=== PATIENT | male | born 1970 | race Caucasian/White ===

== ENCOUNTER 2022-11-21 11:59 | Outpatient (CLI) | payer BC, SELFPAY ==
[2022-11-21 13:15] LABS: Albumin* 4.1 g/dL (3.3-5.0); Chloride* 107 mmol/L (96-114); Potassium* 5.1 mmol/L (3.6-5.1); Sodium* 139 mmol/L (135-149)
[2022-11-21 13:17] LABS: Cholesterol* 103 mg/dL (90-199); Triglycerides* 173 mg/dL (40-149)
[2022-11-21 13:18] LABS: Alanine Aminotransferase* 27 U/L (4-50); Alkaline Phosphatase* 113 U/L (40-150); Aspartate Amino Transferase* 25 U/L (12-35); Bilirubin Total* 0.6 mg/dL (0.1-1.5); Blood Urea Nitrogen* 20 mg/dL (7-30); Carbon Dioxide* 26 mmol/L (20-32); Estimated Glomerular Filt Rate 91 ml/min; Glucose* 165 mg/dL (60-115); HDL Cholesterol* 39 mg/dL (>=40); LDL Cholesterol Calculated 29 mg/dL (<100); Total Protein* 6.8 g/dL (6.0-8.3)
[2022-11-21 13:19] LABS: Calcium* 9.3 mg/dL (8.4-10.6)
[2022-11-21 13:45] LABS: Creatinine Urine 126.1 mg/dL
[2022-11-21 13:48] LABS: Microalbumin Creatinine Ratio 0 mg/g (0-30); Microalbumin Urine 1 mg/dL
== END 2022-11-21 12:00 | disposition home or self-care (01) ==
PROVIDERS: PCP Emergency Medicine; Visit Provider Internal Medicine
DX: Z00.00 Encounter for general adult medical examination without abnormal findings (principal); I25.10 Atherosclerotic heart disease of native coronary artery without angina pectoris; E11.9 Type 2 diabetes mellitus without complications; E03.9 Hypothyroidism, unspecified
CPT/HCPCS: 80053; 80061; 82043; 82570; 84443

== ENCOUNTER 2022-12-01 10:40 | Outpatient (CLI) | payer BC, SELFPAY ==
--- NOTE | 2022-12-01 11:00 | CRLHL7_ITS ---
For Patients: As a result of the Cures Act, medical imaging exams and procedure reports are released immediately into your electronic medical record. You may view this report before your referring provider. If you have questions, please contact your health care provider. INDICATION: Calculus of the kidney. TECHNIQUE: Bilateral renal ultrasound. Limited imaging of the urinary bladder. COMPARISON: December 16, 2021. FINDINGS: No hydronephrosis of either kidney. The right kidney measures 11.8 x 6.4 x 6.7 cm and the left kidney measures 11.8 x 5.7 x 5.3 cm. The right renal cortex measures 1.5 cm and the left renal cortex 1.7 cm in thickness. Few punctate echogenic foci identified throughout both kidneys suggesting tiny nonobstructing stones. 1.3 x 1.2 x 1.0 cm cyst lower pole right kidney. 1.6 x 1.7 x 1.3 cm mid outer left renal cyst. 6 mm cyst superior pole left kidney. The urinary bladder is grossly unremarkable but incompletely distended. IMPRESSION: Small renal cysts. Few tiny nonobstructing echogenic foci in the kidneys likely nonobstructing stones. Dictated by Cody Dougherty MD @ 12/01/2022 11:49:59 AM (Electronically Signed)
== END 2022-12-01 10:41 | disposition home or self-care (01) ==
LOC: US 10:41
PROVIDERS: PCP Emergency Medicine; Visit Provider Urology
DX: N20.0 Calculus of kidney (principal); N28.1 Cyst of kidney, acquired
CPT/HCPCS: 76775

== ENCOUNTER 2023-01-15 10:47 | Outpatient (CLI) | payer BC, SELFPAY ==
--- NOTE | 2023-01-15 11:00 | CRLHL7_ITS ---
For Patients: As a result of the Century Cures Act, medical imaging exams and procedure reports are released immediately into your electronic medical record. You may view this report before your referring provider. If you have questions, please contact your health care provider. INDICATION: Right sided neck pain. Constant, 3 months COMPARISON: none TECHNIQUE: A CT volumetric acquisition was performed of the neck during intravenous infusion of 100 cc Isovue 370 nonionic intravenous contrast. Please note that all CT scans at this facility use dose modulation, iterative reconstruction, and/or weight-based dosing when appropriate to reduce radiation dose to as low as reasonably achievable. FINDINGS: Mild paraseptal emphysematous changes in both lung apices. Mild atherosclerotic changes. The thyroid is diminutive. No suspicious thyroid nodule. The vallecula and piriform sinuses are normal. Normal epiglottis. Visualized brain parenchyma normal. Normal orbits. Clear sinuses. Submandibular glands are normal. The right parotid gland is either absent or atrophied. Normal left parotid gland. No enlarged cervical lymph nodes. Chronic calcifications within the palatine tonsils. No tonsillar abscess. Styloid processes appear elongated. IMPRESSION: Absent or atrophied right parotid gland. No acute inflammatory changes within the neck. No adenopathy. 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 Mild emphysema. Please note that all CT scans at this facility use dose modulation, iterative reconstruction, and/or weight-based dosing when appropriate to reduce radiation dose to as low as reasonably achievable. Dictated by Pancho Ngo MD @ 01/15/2023 1:07:58 PM (Electronically Signed)
[2023-01-15 11:29] LABS: Creatinine* 1.1 mg/dL (0.5-1.5)
[2023-01-15 11:30] LABS: Estimated Glomerular Filt Rate 81 ml/min
== END 2023-01-15 10:48 | disposition home or self-care (01) ==
LOC: CT 10:49
PROVIDERS: PCP Emergency Medicine; Visit Provider Physician Assistant Medical
DX: M54.2 Cervicalgia (principal); J43.8 Other emphysema
CPT/HCPCS: 36415; 70491; 82565; Q9967

== ENCOUNTER 2023-01-27 11:07 | Outpatient (CLI) | payer BC, SELFPAY | END 2023-01-27 11:08 | disposition home or self-care (01) | LOC: FRMREF 11:08 | PROVIDERS: PCP Emergency Medicine; Visit Provider Dermatology | DX: L40.9 Psoriasis, unspecified (principal) | CPT/HCPCS: 80053 ==

== ENCOUNTER 2023-03-03 09:49 | Outpatient (CLI) | payer BC, SELFPAY | END 2023-03-03 09:50 | disposition home or self-care (01) | LOC: NFLDREF 03-06 11:24 | PROVIDERS: PCP Emergency Medicine; Referring Provider Emergency Medicine; Visit Provider Dermatology | DX: Z00.00 Encounter for general adult medical examination without abnormal findings (principal); E11.9 Type 2 diabetes mellitus without complications; E03.9 Hypothyroidism, unspecified; E78.5 Hyperlipidemia, unspecified; Z79.631 Long term (current) use of antimetabolite agent | CPT/HCPCS: 80076 ==

== ENCOUNTER 2023-05-13 10:38 | Outpatient (CLI) | payer BC, SELFPAY | END 2023-05-13 10:39 | disposition home or self-care (01) | PROVIDERS: PCP Emergency Medicine; Visit Provider Dermatology | DX: E03.9 Hypothyroidism, unspecified (principal) | CPT/HCPCS: 80076; 84443 ==

== ENCOUNTER 2023-06-04 10:32 | Outpatient (CLI) | payer BC, SELFPAY | END 2023-06-04 10:33 | disposition home or self-care (01) | LOC: NFLDREF 06-05 19:08 | PROVIDERS: PCP Emergency Medicine; Referring Provider Emergency Medicine; Visit Provider Emergency Medicine | DX: E11.9 Type 2 diabetes mellitus without complications (principal); E78.5 Hyperlipidemia, unspecified; I10 Essential (primary) hypertension; R10.13 Epigastric pain; R53.83 Other fatigue | CPT/HCPCS: 80048; 80061; 82043; 82570 ==

== ENCOUNTER 2023-06-11 13:42 | Outpatient (CLI) | payer BC, SELFPAY ==
--- NOTE | 2023-06-11 14:00 | CRLHL7_ITS ---
For Patients: As a result of the Century Cures Act, medical imaging exams and procedure reports are released immediately into your electronic medical record. You may view this report before your referring provider. If you have questions, please contact your health care provider. INDICATION: ABDOMINAL PAIN COMPARISON: 12/01/2022 ultrasound, 01/18/2021 CT TECHNIQUE: Real time mckoy scale imaging and color Doppler analysis was performed of the right upper quadrant. FINDINGS: The liver is diffusely coarsened and echogenic. A simple cyst is noted within the left hepatic lobe measuring 1.4 x 0.6 x 1.1 cm. There is a normal appearance of the hepatic IVC and proximal abdominal aorta. There is no evidence of ascites. The gallbladder is of normal size and there is no evidence of intraluminal stones or sludge. The gallbladder wall measures 1.5 mm in thickness. The common bile duct is of normal size and measures 4.5 mm in diameter at the level of the carlos hepatis. The pancreas appears normal. A simple cyst within the right kidney is noted measuring 1.8 x 1.6 x 1.6 cm. The right kidney measures 11.1 cm in length. A 5 millimeter stone is present within the right kidney. IMPRESSION: Right nephrolithiasis again noted. No hydronephrosis. Incidental simple right renal cortical cyst. Diffuse hepatic steatosis. Incidental 1.4 cm cyst within the left hepatic lobe. Dictated by Pancho Ngo MD @ 06/12/2023 10:18:30 AM (Electronically Signed)
== END 2023-06-11 13:43 | disposition home or self-care (01) ==
LOC: US 13:43
PROVIDERS: PCP Emergency Medicine; Visit Provider Emergency Medicine
DX: R10.9 Unspecified abdominal pain (principal); N20.0 Calculus of kidney; K76.0 Fatty (change of) liver, not elsewhere classified; K76.89 Other specified diseases of liver
CPT/HCPCS: 76705

== ENCOUNTER 2023-07-23 12:47 | Outpatient (CLI) | payer BC, SELFPAY ==
--- NOTE | 2023-07-23 13:00 | CRLHL7_ITS ---
For Patients: As a result of the Century Cures Act, medical imaging exams and procedure reports are released immediately into your electronic medical record. You may view this report before your referring provider. If you have questions, please contact your health care provider. Indication: ABD PAIN, LLQ AND RUQ PAIN Technique: Postcontrast CT abdomen and pelvis. 116 cc Isovue 370 intravenous contrast. Please note that all CT scans at this facility use dose modulation, iterative reconstruction, and/or weight-based dosing when appropriate to reduce radiation dose to as low as reasonably achievable. Comparison: 01/18/2021 CT, 06/11/2023 ultrasound Findings: Punctate 1 millimeter stone is present within the midportion of the right kidney. 2 millimeter nonobstructing calcification within the upper pole of the left kidney. Small simple renal cortical cysts noted bilaterally. No perinephric stranding or hydronephrosis. No solid renal mass. Adrenal glands are normal. Calcified splenic granulomas are noted. Normal pancreas. The gallbladder is incompletely distended. Diffuse hepatic steatosis. No intrahepatic mass. The bladder is normal. No bladder stones. No bowel obstruction or free air. No free fluid. Normal appendix. No adenopathy. Vascular calcifications. Calcified right hilar lymph nodes are noted. No basilar infiltrate or pleural effusion. Impression: Diffuse hepatic steatosis, as before. No ascites. Punctate calcification within each kidney. No hydronephrosis. Incidental simple renal cysts. Sequela of granulomatous disease. No bowel obstruction or inflammatory change. Normal appendix. No diverticulitis. Please note that all CT scans at this facility use dose modulation, iterative reconstruction, and/or weight-based dosing when appropriate to reduce radiation dose to as low as reasonably achievable. Dictated by Pancho Ngo MD @ 07/24/2023 12:23:32 PM (Electronically Signed)
[2023-07-23 13:25] LABS: Creatinine* 1.1 mg/dL (0.5-1.5); Estimated Glomerular Filt Rate 81 ml/min
== END 2023-07-23 12:48 | disposition home or self-care (01) ==
LOC: CT 12:48
PROVIDERS: PCP Emergency Medicine; Visit Provider Emergency Medicine
DX: R10.9 Unspecified abdominal pain (principal); K76.0 Fatty (change of) liver, not elsewhere classified
CPT/HCPCS: 36415; 74177; 82565; Q9967

== ENCOUNTER 2023-08-05 13:53 | Outpatient (CLI) | payer BC, SELFPAY | END 2023-08-05 13:54 | disposition home or self-care (01) | LOC: NFLDREF 08-07 10:07 | PROVIDERS: PCP Emergency Medicine; Referring Provider Emergency Medicine; Visit Provider Dermatology | DX: Z79.631 Long term (current) use of antimetabolite agent (principal) | CPT/HCPCS: 80053 ==

== ENCOUNTER 2023-10-22 13:00 | Outpatient (CLI) | payer BC, SELFPAY | END 2023-10-22 13:01 | disposition home or self-care (01) | LOC: NFLDREF 10-23 11:58 | PROVIDERS: PCP Emergency Medicine; Referring Provider Emergency Medicine; Visit Provider Dermatology | DX: Z79.631 Long term (current) use of antimetabolite agent (principal) | CPT/HCPCS: 80053 ==

== ENCOUNTER 2023-11-16 13:37 | Outpatient (CLI) | payer BC, SELFPAY ==
--- OUTSIDE RECORDS SUMMARY | 2023-11-16 13:42 | XMS_ITS | Encounter Summary ---
Author Name Unknown Organization [facility] Address [address] [place] [address] [place] [address] Care Team Providers Care Mixing And Dispensing Supervisor Name Role Phone Phillip Sánchez DO Unavailable [phone] Porfirio Zaman MD Primary Care Provider Encounter Details Date Type Department Care Team Description 01/23/2018 Abstract [facility] [address] [place] [address] , Generic MD Abel Social History Tobacco Use Types Packs/Day Years Used Date Smoking Tobacco: Never Assessed Sex and Gender Information Value Date Recorded Sex Assigned at Not on file Gender Identity Not on file Sexual Orientation Not on file documented as of this encounter Plan of Treatment Not on file documented as of this encounter Visit Diagnoses Not on filedocumented in this encounter Care Teams Mixing And Dispensing Supervisor Relationship Specialty Start Date End Date Phillip Sánchez DO [address] [place] [address] PCP - HEART & VASCULAR CARE CARDIOVASCULAR DISEASE 06/07/18 Porfirio Zaman MD [address] [place] [address] PCP - General FAMILY PRACTICE 06/07/18 documented as of this encounter
--- OUTSIDE RECORDS SUMMARY | 2023-11-16 13:42 | XMS_ITS | Encounter Summary ---
Author Name Unknown Organization [facility] Address [address] [place] [address] [place] [address] Care Team Providers Care Offset Assistant Press Operator Name Role Phone Phillip Sánchez DO Unavailable [phone] Porfirio Zaman MD Primary Care Provider [phone] Encounter Details Date Type Department Care Team Description 01/30/2023 Scan [facility] INFO SRVCS Scanned, Doc Med Group Social History Tobacco Use Types Packs/Day Years Used Date Smoking Tobacco: Former Cigarettes 1 Q uit: 2017 Smokeless Tobacco: Never Alcohol Use Standard Drinks/Week Comments No 0 (1 standard drink = 0.6 oz pur e alcohol) Sex and Gender Information Value Date Recorded Sex Assigned at Not on file Gender Identity Not on file Sexual Orientation Not on file documented as of this encounter Plan of Treatment Not on file documented as of this encounter Visit Diagnoses Not on filedocumented in this encounter Care Teams Offset Assistant Press Operator Relationship Specialty Start Date End Date Phillip Sánchez DO [address] [place] [address] PCP - HEART & VASCULAR CARE CARDIOVASCULAR DISEASE 06/07/18 Porfirio Zaman MD [address] [facility] [place] [address] PCP - General FAMILY PRACTICE 06/07/18 documented as of this encounter
--- OUTSIDE RECORDS SUMMARY | 2023-11-16 13:42 | XMS_ITS | Clinical Summary ---
Author Name Unknown Organization [facility] Address [place], [place] [address] Care Team Providers Care Heavy Mobile Equipment Repairer Name Role Phone Estephania Vela Primary Care Provider Lizzeth martini Allergies No known active allergies Medications Medication Sig Dispensed Refills Start Date End Date Status clopidogrel (PLAVIX) 75 mg tabletIndications:Inf erior myocardial infarction (HC) Take 1 tablet by mouth once daily. 90 tablet 3 09/20/2019 Active rosuvastatin (CRESTOR) 20 mg tabletIndications:Inf erior myocardial infarction (HC) Take 1 tablet by mouth at bedtime. 90 tablet 3 09/20/2019 Active glimepiride (AMARYL) 2 mg tablet Take 2 mg by mouth once daily. 0 Active empagliflozin (Jardiance) 10 mg tablet Take 10 mg by mouth once daily. 0 Active lisinopriL (PRINIVIL; ZESTRIL) 2.5 mg tablet Take 2.5 mg by mouth once daily. 0 Active metoprolol succinate 25 mg CSpX Take 25 mg by mouth once daily. 0 Active Encounters Date Type Department Care Team Description 10/30/2023 2:00 PM PARAPROFESSIONAL AIDE TEACHER Office Visit [facility] [address] [place] [address] Samuel Restrepo MD 10/30/2023 Telephone [facility] Payton Landa [address] [place] [address] [place] [address] Samuel Restrepo MD from Last 3 Months Social History Tobacco Use Types Packs/Day Years Used Date Smoking Tobacco: Never Assessed Social Connections Answer Date Recorded Frequency of Communication with Friends and Fami ly Not on file 10/30/2021 Financial Resource Strain Answer Date R ecorded Difficulty of Paying Living Expenses Not on file 10/30/2021 Difficulty of Paying Living Expenses Not on file 10/30/2021 Sex and Gender Information Value Date Recorded Sex Assigned at Not on file Gender Identity Not on file Sexual Orientation Not on file Plan of Treatment Health Maintenance Due Date Last Done Comments Tdap 1982 Depression screening for age 12+ 1983 HIV for age 15-65 1986 BMI (ht and wt on same day) for age 18+ 1989 Hepatitis C screening for ag e 18-79 1989 Tetanus booster 1991 Colonoscopy through age 75 2016 Lipids for age 45-75 2016 Zoster (shingles) series for age 50+ (1 of 2) 2021 COVID-19 vaccine series (2022- season) 2023 03/22/2021, 03/01/2021 Influenza for age 50-64 07/10/2023 Pneumococcal series for age 6-64 Aged Out No longer eligible b ased on patient's age to complete this topic Care Teams Heavy Mobile Equipment Repairer Relationship Specialty Start Date End Date Estephania Vela PCP - General 08/23/19
--- OUTSIDE RECORDS SUMMARY | 2023-11-16 13:42 | XMS_ITS | Encounter Summary ---
Author Name Unknown Organization [facility] Address [address] [place] [address] Care Team Providers Care Occupational Therapy Technician Name Role Phone [facility]- Primary Care Provider Encounter Details Date Type Department Care Team (Late st Contact Info) Description 12/05/2021 Documentation Only INTERFACED REPORT Unknown, Provider Social History Tobacco Use Types Packs/Day Years Used Date Smoking Tobacco: Former Cigarettes Q uit: 2015 Smokeless Tobacco: Never Alcohol Use Standard Drinks/Week Comments Not Currently 0 (1 standard drink = 0.6 oz pur e alcohol) Sex and Gender Information Value Date Recorded Sex Assigned at Not on file Gender Identity Not on file Sexual Orientation Not on file COVID-19 Exposure Response Date Recorded In the last month, have you been in contact with someone who was confirmed or suspected to have Coronavirus / COVID-19? No / Unsure 12/04/2021 8:25 PM SUPERVISORY TRAINING SPECIALIST documented as of this encounter Plan of Treatment Not on file documented as of this encounter Visit Diagnoses Not on filedocumented in this encounter Care Teams Occupational Therapy Technician Relationship Specialty Start Date End Date [facility]- [address] [place] [address] PCP - General 02/26/21 documented as of this encounter
--- OUTSIDE RECORDS SUMMARY | 2023-11-16 13:42 | XMS_ITS | Referral Summary ---
Author Name Unknown Organization [facility] Address [address] [place] [address] Care Team Providers Care Joiner Name Role Phone [facility]- Primary Care Provider Allergies No known active allergies Medications Medication Sig Dispensed Refills Start Date End Date Status terbinafine (LAMISIL) 250 MG tablet Take 250 mg by mouth daily 0 Active tamsulosin (FLOMAX) 0.4 MG capsule Take 0.4 mg by mouth daily 0 Active levothyroxine (SYNTHROID/LEVOTHRO ID) 25 MCG tablet Take 12.5 mcg by mouth daily 0 Active buPROPion (WELLBUTRIN XL) 150 MG 24 hr tablet Take 150 mg by mouth every morning 0 Active SITagliptin-metFORM IN HCl (JANUMET XR PO) Take 1 tablet by mouth 2 times daily 0 Active metoprolol succinate ER (TOPROL-XL) 25 MG 24 hr tablet Take 25 mg by mouth daily 0 Active rosuvastatin (CRESTOR) 20 MG tablet Take 20 mg by mouth daily 0 Active lisinopril (ZESTRIL) 2.5 MG tablet Take 2.5 mg by mouth daily 0 Active glimepiride (AMARYL) 2 MG tablet Take 2 mg by mouth 2 times daily (before meals) 0 Active nystatin (MYCOSTATIN) 101633 UNIT/GM external cream Apply topically 2 times daily 0 Active multivitamin w/minerals (MULTI-VITAMIN) tablet Take 1 tablet by mouth daily 0 Active ketoconazole (NIZORAL) 2 % external cream Apply topically 2 times daily 0 Active triamcinolone (KENALOG) 0.1 % external ointment Apply topically 2 times daily 0 Active aspirin (ASA) 81 MG chewable tablet Take 81 mg by mouth daily 0 Active HYDROcodone-acetami nophen (NORCO) 5-325 MG tabletIndications:B ilateral kidney stones Take 1-2 tablets by mouth every 6 hours as needed for moderate to severe pain 15 tablet 0 03/05/2021 Active phenazopyridine (PYRIDIUM) 200 MG tabletIndications:B ilateral kidney stones Take 1 tablet (200 mg) by mouth 3 times daily as needed for irritation 9 tablet 0 03/05/2021 Active Social History Tobacco Use Types Packs/Day Years Used Date Smoking Tobacco: Former Cigarettes Q uit: 2015 Smokeless Tobacco: Never Alcohol Use Standard Drinks/Week Comments Not Currently 0 (1 standard drink = 0.6 oz pur e alcohol) Adolescent Education Answer Date Record ed Getting School Help Needed Not on file 08/01 Sex and Gender Information Value Date Recorded Sex Assigned at Not on file Gender Identity Not on file Sexual Orientation Not on file Last Filed Vital Signs Vital Sign Reading Time Taken Comments Blood Pressure 113/68 12/04/2021 11:29 PM OUTREACH LIBRARIAN Pulse 64 12/04/2021 11:29 PM OUTREACH LIBRARIAN Temperature 36.9 ??C (98.4 ??F) 12/04/2021 8:29 PM CS T Respiratory Rate 18 12/04/2021 8:29 PM OUTREACH LIBRARIAN Oxygen Saturation 100% 12/04/2021 11:34 PM OUTREACH LIBRARIAN Inhaled Oxygen Concentration - - Weight 113.9 kg (251 lb) 03/05/2021 5:47 AM CDT Height 185.4 cm (6' 1) 03/05/2021 5:47 AM CDT Body Mass Index 33.12 03/05/2021 5:47 AM CDT Plan of Treatment Not on file Medical Devices Implanted Type Area Supervisor Type Bar And Segment Device Identifier Shelf Expiration Date Model / Serial / Lot Stent Ureteral Polaris Ultra [id number] Implanted:Qty: 1 on 03/05/2021 by Lino Cheney MD at [facility] Stent Left: Ureter [employer] 12/02/2023 [id number] / / [id number] Care Teams Joiner Relationship Specialty Start Date End Date [facility]- [address] [place], [place] [id number] PCP - General 02/26/21
--- OUTSIDE RECORDS SUMMARY | 2023-11-16 13:42 | XMS_ITS | Encounter Summary ---
Author Name Unknown Organization [facility] Address [address] [place] [address] [place] [address] Care Team Providers Care Textile Artist Name Role Phone Phillip Sánchez DO Unavailable [phone] Porfirio Zaman MD Primary Care Provider Encounter Details Date Type Department Care Team Description 02/17/2023 Scan [facility] INFO SRVCS Scanned, Doc Med Group Social [...] on filedocumented in this encounter Care Teams Textile Artist Relationship Specialty Start Date End Date Phillip Sánchez DO [address] [place] [address] PCP - HEART & VASCULAR CARE CARDIOVASCULAR DISEASE 06/07/18 Porfirio Zaman MD [address] [facility] [place] [address] PCP - General FAMILY PRACTICE 06/07/18 documented as of this encounter
--- OUTSIDE RECORDS SUMMARY | 2023-11-16 13:42 | XMS_ITS | Clinical Summary ---
Author Name Unknown Organization [facility] Address [address] [place] [address] Care Team Providers Care Logging Operations Inspector Name Role Phone [facility]- Primary Care Provider Allergies No known active [...] daily (before meals) 0 Active nystatin (MYCOSTATIN) 647300 UNIT/GM external cream Apply topically 2 times [...] Comments Blood Pressure 113/68 12/04/2021 11:29 PM LASER PRINT OPERATOR Pulse 64 12/04/2021 11:29 PM LASER PRINT OPERATOR Temperature 36.9 ??C (98.4 ??F) 12/04/2021 8:29 PM CS T Respiratory Rate 18 12/04/2021 8:29 PM LASER PRINT OPERATOR Oxygen Saturation 100% 12/04/2021 11:34 PM LASER PRINT OPERATOR Inhaled Oxygen Concentration - - Weight 113.9 kg (251 lb) 03/05/2021 5:47 AM CDT Height 185.4 cm (6' 1) 03/05/2021 5:47 AM CDT Body Mass Index 33.12 03/05/2021 5:47 AM CDT Plan of Treatment Health Maintenance Due Date Last Done Comments ADVANCE CARE PLANNING 1971 ANNUAL REVIEW OF HM ORDERS 1971 CT COLONOGRAPHY 1971 FIT 1971 FLEX SIG 1971 HEPATITIS B IMMUNIZATION (1 of 3 - 3-dose series) 1971 TSH W/FREE T4 REFLEX 1971 YEARLY PREVENTIVE VISIT 1971 sDNA (Cologuard) 1971 COLONOSCOPY 1981 COLORECTAL CANCER SCREENING 1981 HIV SCREENING 1986 HEPATITIS C SCREENING 1989 LIPID 2006 LUNG CANCER SCREENING 2021 ZOSTER IMMUNIZATION (1 of 2) 2021 COVID-19 Vaccine (3 - 2022-2 4 season) 2023 03/22/2021, 03/01/2021 INFLUENZA VACCINE (#1) 2023 PHQ-2 (once per calendar year) 2023 DTAP/TDAP/TD IMMUNIZATION (3 - Td or Tdap) 11/19/2028 11/19/2018, 11/09/2016 HPV IMMUNIZATION Aged Out No longer e ligible based on patient's age to complete this topic IPV IMMUNIZATION Aged Out No longer e ligible based on patient's age to complete this topic MENINGITIS IMMUNIZATION Aged Out No l onger eligible based on patient's age to complete this topic Pneumococcal Vaccine: Pediatrics (0 to 5 Years) and At-Risk Patients (6 to 64 Years) Aged Out No longer eligible b ased on patient's age to complete this topic RSV MONOCLONAL ANTIBODY Aged Out No l onger eligible based on patient's age to complete this topic Medical Devices Implanted Type Area Mirror Framer Device Identifier Shelf Expiration Date Model / Serial / Lot Stent Ureteral Polaris Ultra [id number] Implanted:Qty: 1 on 03/05/2021 by Lino Cheney MD at [facility] Stent Left: Ureter [employer] 12/02/2023 [id number] / / [id number] Care Teams Logging Operations Inspector Relationship Specialty Start Date End Date [facility]- [address] [place] [address] PCP - General 02/26/21
--- OUTSIDE RECORDS SUMMARY | 2023-11-16 13:42 | XMS_ITS | Clinical Summary ---
Author Name Unknown Organization [facility] Address [address] [place] [address] [place] [address] Care Team Providers Care Clinical Operations Consultant Name Role Phone Phillip Sánchez Ethan DO Unavailable [phone] Porfirio Zaman MD Primary Care Provider Allergies No known active allergies Medications Medication Sig Dispensed Refills Start Date End Date Status metoprolol succinate 50 MG 24 hr tablet Take 1/2 tablet by mouth daily 0 02/08/2017 Active lisinopril 5 MG tablet Take 1/2 tablet by mouth daily. 0 02/08/2017 Active nitroglycerin 0.[address] 1 tablet under the tongue every 5 (five) minutes as needed for Chest Pain. Do not take more than 3 tablets in 15 minutes 0 02/09/2017 Active ticagrelor (BRILINTA) 90 MG tablet Take 1 tablet by mouth 2 (two) times daily. 0 02/08/2017 Active metFORMIN 500 MG tablet Take 500 mg by mouth 2 (two) times daily with meals. 0 Active amoxicillin-clavulan ate 875-125 MG tabletIndications:Ac franck maxillary sinusitis, recurrence not specified Take 1 tablet (875 mg total) by mouth 2 (two) times daily. 20 tablet 0 02/02/2019 Active CPAP SUPPLIESIndications: Sleep apnea Please give patient one set of supplies for cpap 1 Device 0 02/17/2019 Active FREESTYLE LITE test stripIndications:Typ e 2 diabetes mellitus without complication, without long-term current use of insulin ([facility]) ([facility]) TEST TWICE DAILY. 60 each 5 03/28/2019 Active simvastatin 40 MG tabletIndications:Dy slipidemia Take 1 tablet (40 mg total) by mouth nightly at bedtime. 90 tablet 1 04/01/2019 Active glimepiride 2 MG tabletIndications:Di abetes ([facility]) ([facility]) TAKE 2 TABLETS BY MOUTH DAILY 180 tablet 5 05/11/2019 Active METFORMIN 500 MG tabletIndications:Di abetes ([facility]) ([facility]) TAKE 1 TABLET BY MOUTH TWICE DAILY 180 tablet 0 06/23/2019 Active levothyroxine 50 MCG tabletIndications:Th yroid condition TAKE 1 TABLET(50 MCG) BY MOUTH DAILY 90 tablet 1 09/19/2019 Active Active Problems Problem Noted Date Diagnosed Date Recurrent kidney stones 01/29/2019 Coronary artery disease of n ative artery of [place] heart with stable angina pectoris 11/19/2018 Essential hypertension 11/19/2018 Dyslipidemia 11/19/2018 Type 2 diabetes mellitus wit hout complication, without long-term current use of insulin ([facility]) 11/19/2018 Hypothyroidism 03/16/2015 Sleep apnea 04/19/2014 Resolved Problems Problem Noted Date Diagnosed Date Resolved Date Need for diphtheria-tetanus- pertussis (Tdap) vaccine 11/19/2018 01/23/2019 Acute [place] 02/27/2017 01/23/2019 Immunizations Name Administration Dates Next Due Tdap (Historical Only-select from magnify glass) 11/19/2018 Family History Medical History Relation Comments Valve Disease Brother hypothyroidism Daughter Heart Attack Father Kidney Stones Father Breast Cancer Mother hypothyroidism Sister Diabetes Neg Hx Relation Status Comments Brother Daughter Father (Age 61) Mother (Age late 70s) Sister Social History Tobacco Use Types Packs/Day Years [...] Sign Reading Time Taken Comments Blood Pressure 106/69 04/01/2019 10:47 AM CDT Pulse 91 04/01/2019 10:47 AM CDT Temperature 36.1 ??C (96.9 ??F) 04/01/2019 1 0:47 AM CDT Respiratory Rate 22 01/26/2019 12:4 5 PM CDT Oxygen Saturation 97% 04/01/2019 10: 47 AM CDT Inhaled Oxygen Concentration - - Weight 108.2 kg (238 lb 9.6 oz) 019 10:47 AM CDT Height 188 cm (6' 2) 04/01/2019 10:47 AM CDT Body Mass Index 30.63 04/01/2019 10:47 AM CDT Plan of Treatment Health Maintenance Due Date Last Done Comments ASCVD Statin 1971 Colorectal Cancer Screening Colonoscopy (10 Years) 1971 Kidney Health Evaluation 1971 COVID-19 Vaccine (#1) 01/15/1972 Annual Physical 1974 Pneumococcal Vaccine: Pediatrics (0 to 5 Years) and At-Risk Patients (6 to 64 Years) (1 of 2 - PCV) 1977 Diabetes: Retinopathy Eye Exam 1989 Hepatitis C 1989 Hemoglobin A1C 10/02/2019 04/01/2019, 01/07, 11/19/2018, Additional history exists ASCVD LDL 04/01/2020 04/01/2019, 11/09, 03/12/2018, Additional history exists Lipid Panel 04/01/2020 04/01/2019, 11/09, 03/12/2018, Additional history exists Zoster Vaccines (1 of 2) 2021 Influenza Adult (#1) 2023 DTaP, Tdap and Td Vaccines (2 - Td or Tdap) 11/19/2028 11/19/2018 Meningococcal Vaccine Aged Out No patrica chase eligible based on patient's age to complete this topic RSV Immunizations Under 20 Months Aged Out No longer eligible based on patient's age to complete this topic Care Teams Clinical Operations Consultant Relationship Specialty Start Date End Date Phillip Sánchez DO [address] [place] [phone] PCP - HEART & VASCULAR CARE CARDIOVASCULAR DISEASE 06/07/18 Porfirio Zaman MD [address] [place] [address] PCP - General FAMILY PRACTICE 06/07/18
== END 2023-11-16 13:38 | disposition home or self-care (01) ==
PROVIDERS: PCP Emergency Medicine; Visit Provider Physician Assistant Medical
DX: E11.9 Type 2 diabetes mellitus without complications (principal); Z12.5 Encounter for screening for malignant neoplasm of prostate; R53.83 Other fatigue; Z79.84 Long term (current) use of oral hypoglycemic drugs; Z79.85 Long-term (current) use of injectable non-insulin antidiabetic drugs
CPT/HCPCS: 82607; 82728; 84403; 86140; G0103

== ENCOUNTER 2023-11-18 09:05 | Outpatient (CLI) | payer BC, SELFPAY ==
--- NOTE | 2023-11-18 09:15 | CRLHL7_ITS ---
For Patients: As a result of the Century Cures Act, medical imaging exams and procedure reports are released immediately into your electronic medical record. You may view this report before your referring provider. If you have questions, please contact your health care provider. INDICATION: Renal stone TECHNIQUE: Conventional two-dimensional grayscale ultrasound of the kidneys COMPARISON: Abdomen/pelvis CT of 07/23/2023 and renal ultrasound of 12/01/2022 FINDINGS: The renal parenchyma is normal. A 1.6 cm parapelvic cyst is again demonstrated in the inferior right kidney. A small stone is suggested in the lateral mid left renal collecting system. No hydronephrosis is evident. IMPRESSION: 1.6 cm inferior right renal parapelvic cyst and small stone suggested in the lateral mid left renal collecting system. Dictated by Yayo Cody MD @ 11/19/2023 2:53:24 PM (Electronically Signed)
--- OUTSIDE RECORDS SUMMARY | 2023-11-18 09:34 | XMS_ITS | Encounter Summary ---
Author Name Unknown Organization [facility] Address [address] [place] [address] [place] [address] Care Team Providers Care Window Air Conditioner Installer Name Role Phone Phillip Sánchez DO Unavailable [phone] Porfirio Zaman MD Primary Care Provider [phone] Encounter Details Date Type Department Care Team Description 01/30/2023 Scan [employer] INFO SRVCS Scanned, Doc Med Group Social [...] on filedocumented in this encounter Care Teams Window Air Conditioner Installer Relationship Specialty Start Date End Date Phillip Sánchez DO [address] [place] [address] PCP - HEART & VASCULAR CARE CARDIOVASCULAR DISEASE 06/07/18 Porfirio Zaman MD [address] [facility] [address] PCP - General FAMILY PRACTICE 06/07/18 documented as of this encounter
--- OUTSIDE RECORDS SUMMARY | 2023-11-18 09:34 | XMS_ITS | Clinical Summary ---
Author Name Unknown Organization [facility] Address [place], [place] [address] Care Team Providers Care Manager Contracting Name Role Phone Estephania Vela Primary Care Provider Lizzeth martini Allergies No known active allergies Medications Medication Sig Dispensed Refills Start Date End Date Status clopidogrel (PLAVIX) 75 mg tabletIndications: Inferior myocardial infarction (HC) Take 1 tablet by mouth once daily. 90 tablet 3 09/20/2019 Active rosuvastatin (CRESTOR) 20 mg tabletIndications: Inferior myocardial infarction (HC) Take 1 tablet by mouth at bedtime. 90 tablet 3 09/20/2019 Active glimepiride (AMARYL) 2 mg tablet Take 2 mg by mouth two times daily. 0 Active empagliflozin (Jardiance) 10 mg tablet Take 10 mg by mouth once daily. 0 Active lisinopriL (PRINIVIL; ZESTRIL) 2.5 mg tablet Take 2.5 mg by mouth once daily. 0 Active metoprolol succinate 25 mg CSpX Take 25 mg by mouth once daily. 0 Active methotrexate (RHEUMATREX) 2.5 mg tablet Take 2.5 mg by mouth once weekly. 6 tablets once weekly 0 Active POTASSIUM CITRATE ORAL Take by mouth. 0 Active metFORMIN (GLUCOPHAGE) 500 mg tablet Take 500 mg by mouth two times daily. 0 Active tirzepatide (Mounjaro) 2.5 mg/0.5 mL penIndications:Georgina betes mellitus without complication (HC) Inject 0.5 mL (2.5 mg) subcutaneous once weekly. 2 mL 0 11/17/2023 Active SITagliptin-metFOR MIN (Janumet) 50-1,000 mg tablet Take 1 Tablet by mouth two times daily. 0 01/09/202 4 Discontinue d(*Medicati on adjustment) Encounters Date Type Department Care Team Description 10/30/2023 2:00 PM ACCESS CLINICIAN [facility] [address] [place] [address] Samuel Restrepo MD 10/30/2023 Telephone [facility] [address] [place] [address] Dr Ras[facility] [address] Samuel Restrepo MD from Last 3 Months [...] Health Maintenance Due Date Last Done Comments Pneumococcal series for age 6-64 (1 of 2 - PCV) 1977 Tdap 1982 Depression screening for age 12+ 1983 HIV for age 15-65 1986 BMI (ht and wt on same day) for age 18+ 1989 Hepatitis C screening for age 18-79 1989 Zoster (shingles) series for age 50+ (1 of 2) 1990 Tetanus booster 1991 Colonoscopy through age 75 2016 Lipids for age 45-75 2016 COVID-19 vaccine series (3 - Pfizer risk series) 04/19/2021 03/22/2021, 03/01/2021 Influenza for age 50-64 07/10/2023 Care Teams Manager Contracting Relationship Specialty Start Date End Date Estephania Vela PCP - General 08/23/19
--- OUTSIDE RECORDS SUMMARY | 2023-11-18 09:34 | XMS_ITS | Referral Summary ---
Author Name Unknown Organization [facility] Address [address] [place] [address] Care Team Providers Care Production Consultant Name Role Phone [facility]- Primary Care Provider Allergies No known [...] daily (before meals) 0 Active nystatin (MYCOSTATIN) 267196 UNIT/GM external cream Apply topically 2 times [...] Comments Blood Pressure 113/68 12/04/2021 11:29 PM VALUE ANALYST Pulse 64 12/04/2021 11:29 PM VALUE ANALYST Temperature 36.9 ??C (98.4 ??F) 12/04/2021 8:29 PM CS T Respiratory Rate 18 12/04/2021 8:29 PM VALUE ANALYST Oxygen Saturation 100% 12/04/2021 11:34 PM VALUE ANALYST Inhaled Oxygen Concentration - - Weight 113.9 kg (251 lb) 03/05/2021 5:47 AM CDT Height 185.4 cm (6' 1) 03/05/2021 5:47 AM CDT Body Mass Index 33.12 03/05/2021 5:47 AM CDT Plan of Treatment Not on file Medical Devices Implanted Type Area Air Hole Driller Device Identifier Shelf Expiration Date Model / Serial / Lot Stent Ureteral Polaris Ultra [id number] Implanted:Qty: 1 on 03/05/2021 by Lino Cheney MD at [facility] Stent Left: Ureter [employer] 12/02/2023 [id number] / / [id number] Care Teams Production Consultant Relationship Specialty Start Date End Date [facility]- [address] [place], [place] [id number] PCP - General 02/26/21
--- OUTSIDE RECORDS SUMMARY | 2023-11-18 09:34 | XMS_ITS | Encounter Summary ---
Author Name Unknown Organization [facility] Address [address] [place] [address] [place] [address] Care Team Providers Care Joggle Press Operator Name Role Phone Phillip Sánchez DO Unavailable [phone] Porfirio Zaman MD Primary Care Provider Encounter Details Date Type Department Care Team Description 02/17/2023 Scan [employer] INFO SRVCS Scanned, Doc Med Group Social [...] on filedocumented in this encounter Care Teams Joggle Press Operator Relationship Specialty Start Date End Date Phillip Sánchez DO [address] [place] [address] PCP - HEART & VASCULAR CARE CARDIOVASCULAR DISEASE 06/07/18 Porfirio Zaman MD [address] [facility] [address] PCP - General FAMILY PRACTICE 06/07/18 documented as of this encounter
--- OUTSIDE RECORDS SUMMARY | 2023-11-18 09:34 | XMS_ITS | Clinical Summary ---
Author Name Unknown Organization [facility] Address [address] [place] [address] [place] [address] Care Team Providers Care Ct Mri Technologist Name Role Phone Phillip Sánchez Ethan DO Unavailable [phone] Porfirio Zaman MD Primary Care Provider [...] complication, without long-term current use of insulin ([facility] ([facility]) TEST TWICE DAILY. 60 each 5 03/28/2019 Active simvastatin 40 MG tabletIndications:Dy slipidemia Take 1 tablet (40 mg total) by mouth nightly at bedtime. 90 tablet 1 04/01/2019 Active glimepiride 2 MG tabletIndications:Di abetes ([facility]) ([facility]) TAKE 2 TABLETS BY MOUTH DAILY 180 tablet 5 05/11/2019 Active METFORMIN 500 MG tabletIndications:Di abetes ([facility]) ([facility]) TAKE 1 TABLET BY MOUTH TWICE DAILY 180 tablet 0 06/23/2019 Active levothyroxine 50 MCG tabletIndications:Th yroid condition TAKE 1 TABLET(50 MCG) BY MOUTH DAILY 90 tablet 1 09/19/2019 Active Active Problems Problem Noted Date Diagnosed Date Recurrent kidney stones 01/29/2019 Coronary artery disease of n ative artery of [place] heart with stable angina pectoris 11/19/2018 Essential hypertension 11/19/2018 Dyslipidemia 11/19/2018 Type 2 diabetes mellitus wit hout complication, without long-term current use of insulin ([facility]) 11/19/2018 Hypothyroidism 03/16/2015 Sleep apnea 04/19/2014 Resolved Problems Problem Noted Date Diagnosed Date Resolved Date Need for diphtheria-tetanus- pertussis (Tdap) vaccine 11/19/2018 01/23/2019 Acute [place] 02/27/2017 01/23/2019 Immunizations Name Administration Dates Next [...] age to complete this topic Care Teams Ct Mri Technologist Relationship Specialty Start Date End Date Phillip Sánchez DO [address] [place] [phone] PCP - HEART & VASCULAR CARE CARDIOVASCULAR DISEASE 06/07/18 Porfirio Zaman MD [address] [place] [address] PCP - General FAMILY PRACTICE 06/07/18
--- OUTSIDE RECORDS SUMMARY | 2023-11-18 09:34 | XMS_ITS | Encounter Summary ---
Author Name Unknown Organization [facility] Address [address] [place] [address] [place] [address] Care Team Providers Care Gas Appliance Installer Name Role Phone Phillip Sánchez DO Unavailable [phone] Porfirio Zaman MD Primary Care Provider Encounter Details Date Type Department Care Team Description 01/23/2018 Abstract [facility] CONVERSION [address] [place] [address] , Generic MD Abel Social [...] on filedocumented in this encounter Care Teams Gas Appliance Installer Relationship Specialty Start Date End Date Phillip Sánchez DO [address] [place] [address] PCP - HEART & VASCULAR CARE CARDIOVASCULAR DISEASE 06/07/18 Porfirio Zaman MD [address] [place] [address] PCP - General FAMILY PRACTICE 06/07/18 documented as of this encounter
--- OUTSIDE RECORDS SUMMARY | 2023-11-18 09:34 | XMS_ITS | Encounter Summary ---
Author Name Unknown Organization [facility] Address [address] [place] [address] Care Team Providers Care Him Director Name Role Phone [facility]- Primary Care Provider Encounter Details Date Type [...] COVID-19? No / Unsure 12/04/2021 8:25 PM CHIEF OPERATOR LOCK TENDER documented as of this encounter Plan of Treatment Not on file documented as of this encounter Visit Diagnoses Not on filedocumented in this encounter Care Teams Him Director Relationship Specialty Start Date End Date [facility]- [address] [place] [address] PCP - General 02/26/21 documented as of this encounter
--- OUTSIDE RECORDS SUMMARY | 2023-11-18 09:34 | XMS_ITS | Data Portability ---
Author Name Unknown Address [address] [place] [address] Phone [phone] Organization [facility], [facility] Address [address] [place] [address] Care Team Providers Care Roller Skater Name Role Phone [facility] Primary Care Provider Assessment Encounter Date Assessment Date Assessment LastModified by Organization Details LastModified Time 02/22/2021 02/22/2021 50 year old male with bilateral urolithiasis including bilateral ureteral calculi with associated right hydronephrosis. Not available 02/22/2021 13:41:56 03/14/2021 03/14/2021 50 year old male with bilateral urolithiasis including bilateral ureteral calculi with associated right hydronephrosis. Not available 03/14/2021 11:24:32 06/11/2021 06/11/2021 50 year old male with bilateral urolithiasis including bilateral ureteral calculi with associated right hydronephrosis. Of note a total of 30 minutes was spent: preparing to see the patient by reviewing records, images, and laboratory data; obtaining/revie wing separately obtained history; performing physical examination, counseling and educating patient/family/ caregiver; ordering appropriate medications, labs, imaging or procedures; documenting the clinical encounter; and coordination of care. Not available 06/11/2021 14:56:39 07/02/2022 07/02/2022 51 year old male with bilateral urolithiasis including bilateral ureteral calculi with associated right hydronephrosis. Not available 07/02/2022 16:42:48 12/10/2022 12/10/2022 52 year old male with bilateral urolithiasis including bilateral ureteral calculi with associated right hydronephrosis. [facility] Not available 12/09/2022 10:09:59 Plan of Treatment Reminders Order Date Submit Date Provider Last Modified By Organization Details Last Modified Time Details Appointments ESTABLI SHED 10 2023 02:50P M Parvez Brunner MD Not available Not available Not available Lab BMP, serum or plasma 2021 022 [facility], [address] [place], [address], 07/09/2022 08:31:55 BMP, serum or plasma [address] [facility], [address] [place], [address], 07/23/2021 09:48:09 kidney stone, 24-hour urine panel 2020 021 [employer], [address], [place], [address], 03/21/2021 15:07:16 urinaly sis, dipstic k 2020 021 [facility] Not available 01/23/2021 15:55:44 Referral None recorde d. Procedures None recorde d. Surgeries cystosc opy, with uretero scopy, with lithotr ipsy, with inserti on of uretera l stent (SURG) 2020 021 Not available 03/12/2021 12:09:10 Imaging US, renal 2022 023 [facility], [place] [facility], [address] [place], [address], 10/28/2023 10:04:10 US, renal - Pt needs in late Dec 2021, please call patient to thanks. derick 2021 022 [facility], [address] [place], [address], 07/02/2022 15:15:27 US, renal - Pt needs in late Dec 2021, please call patient to thanks. derick 2020 021 [facility], [address] [place], [address], 07/23/2021 13:36:56 XR, kidney + ureter + bladder 2020 021 [email or web address] Not available 01/25/2021 13:13:03 Medication Orders potassi um citrate ER 10 mEq (1,080 mg) tablet, extende d release 2022 023 [facility] #[id number], [address], [place], [address], 12/10/2022 20:16:01 potassi um citrate ER 10 mEq (1,080 mg) tablet, extende d release [email or web address]/[facility] #024, [address], [place], [address], 07/02/2022 16:41:17 potassi um citrate ER 10 mEq (1,080 mg) tablet, extende d release 2020 021 [facility] #[id number], [address] , [place], [address], 06/11/2021 14:57:31 Patient TargetsNo targets recorded. Patient Instructions Encounter Date Encounter Id Patient Instructions Last Modified By Organization Details Last Modified Time 02/22/2021 [id number] Ureteroscopy wit h Stone Manipulation - PATIENT INFORMED CONSENT Ureteroscopy is a procedure in which a thin telescope is inserted into the ureter (tube that drains the kidney) to remove a stone or obstruction. The goal of this treatment is to remove or break urinary stones into particles small enough to be removed from the urinary tract. This may be accomplished with a laser and/or stone basketing. I understand that there are alternative methods to treat urinary stones, which include: No treatment of the urinary stone(s). Manipulation of a stone in the ureter back into the kidney with placement of a stent (a tube that drains the kidney ? which may be followed by another treatment Shock Wave Lithotripsy (ESWL), or treatment of stones with energy waves Percutaneous Lithotripsy (PNL), a puncture/scope technique through the side directly into the kidney (generally reserved for larger stones) Surgical removal of stone(s) through an incision. I realize that ureteroscopy with stone manipulation MAY or MAY NOT successfully fragment my stones. In many cases, a temporary ureteral stent will be necessary to allow for the passage of stones. I further recognize that some fragments may require alternative treatments to be used following ureteroscopy. I understand that radiographs (x-rays) and other diagnostic studies are necessary following treatment to assess the success of treatment and to diagnose urinary drainage problems, which might result from treatment. I understand that any tubes placed in my urinary tract before, during and after ureteroscopy treatment will need to be removed in a timely fashion. RISKS OF Ureteroscopy with Stone Manipulation The stone may be incompletely fragmented and require alternative treatment. There may be damage to the ureter required prolonged stenting or open repair There may be bleeding sufficient enough to require transfusion. Urinary infection associated with stones may become aggravated and become life threatening. Malfunction of the laser or equipment is a possibility and may require re-scheduling Damage to kidney can occur and may require the removal of the kidney. Damage to the ureter, or tube that drains the kidney may occur and may result in scarring or stricture Anesthesia risks including heart attack, stroke, and even . THESE ARE NOT PROBABLE RESULTS, BUT THEY ARE STATISTICAL POSSIBILITIES. I understand that ureteroscopy should not be performed if I am . A test is required on ALL women where is a possibility. PATIENT ACKNOWLEDGEMENT I have been given an opinion as to the appropriateness of ureteroscopy with stone manipulation for my condition by my personal physician. I have the right to seek a second opinion regarding my care. I understand that it is my responsibility to seek follow-up care from my urologist after treatment. I will be given instructions on necessary post-treatment care. If a ureteral stent has been placed it will need to be removed at a later date (second stage procedure) in the office. I have been allowed to ask questions about the treatment. I have read this form and/or it has been explained to me. I understand that by signing this form, I am consenting to the performance of ureteroscopy with stone manipulation for treatment of stones and any of the above-mentioned alternative procedures necessary for my best health. By signing this document, I agree that any problems, risks, or complications, which may arise either in whole or in part as a result of inaccurate or incomplete information shall be my responsibility. Not available 02/22/2021 13:42:43 Reason for Referral None Reported. Results Created Date Observation Date Name Description Value Unit Range Abnormal Flag LastModifiedBy Organization Detail LastModifiedTime 01/23/2021 urina lysis , dipst ick Color-Status Yellow Not Available [facility] [address], [place], [address], 01/23/2021 15:30:51 01/23/2021 urina lysis , dipst ick Clarity-Stat us Clear Not Available [facility] [address], [place], [address], 01/23/2021 15:30:51 01/23/2021 urina lysis , dipst ick Glucose-Stat us 1000 Not Available [facility] [address], [place], [address], 01/23/2021 15:30:51 01/23/2021 urina lysis , dipst ick pH-Status 5.5 Not Available [facility] [address], [place], [address], 01/23/2021 15:30:51 01/23/2021 urina lysis , dipst ick Blood-Status Trace Not Available [facility] [address], [place], [address], 01/23/2021 15:30:51 01/23/20 21 01/18/2021 CT, abdom en + pelvi s, w/o contr ast No observ ation record ed. Not Available 01/22/2021 15:39:11 01/24/20 21 01/23/2021 CT, abdom en + pelvi s, w/o contr ast No observ ation record ed. [facility] [address], [place], [address], 02/22/2021 13:39:49 01/25/20 21 bladd er scan (PROC ) No observ ation record ed. Not Available 02/22/2021 13:39:49 02/26/20 21 02/22/2021 CT, abdom en + pelvi s, w/o contr ast No observ ation record ed. [email or web address] [facility] [address], [place], [address], 03/14/2021 11:24:01 04/02/20 21 04/01/2021 CT, abdom en + pelvi s, w/o contr ast No observ ation record ed. [email or web address] [facility] [address], [place], [address], 04/03/2021 08:17:34 09/24/20 21 09/23/2021 US, renal No observ ation record ed. [email or web address] Radiology Department [address] [place], [address], 07/02/2022 16:41:14 12/17/19 22 12/16/2021 US, renal No observ ation record ed. [email or web address] Radiology Department [address] [place], [address], 07/02/2022 16:41:14 12/01/19 23 12/01/2022 US, renal No observ ation record ed. [address] Radiology Department [address] [place], [address], 12/10/2022 13:16:57 Result Notes None recorded. Procedures Surgical History Date Name Laterality Status Provider Name and Address Organization Details Recorded Time Cystoscopy with foreign body/stent removal completed Parvez Brunner MD [address], [place], [address], [place] [facility] 03/14/2021 11:25:44 Bladder Scan completed Savita chin [facility] 01/23/2021 16:01:51 placement of stent in pulmonary artery completed Savita chin [facility] 01/23/2021 15:29:56 Imaging Results Imaging Date Name Status LastModified by Organ [facility] Details LastModified Time 01/18/2021 CT, abdomen + pelvis, w/o contrast completed Information not available 01/22/2021 15:39:11 01/23/2021 CT, abdomen + pelvis, w/o contrast completed [email or web address] [address], [place], [address], 02/22/2021 13:39:49 01/24/2021 [facility]PROC[email or web address] Information not available 02/22/2021 13:39:49 02/22/2021 CT, abdomen + pelvis, w/o contrast [email or web address] [address], [place], [address], 03/14/2021 11:24:01 04/01/2021 CT, abdomen + pelvis, w/o contrast completed [facility] [address], [place], [address], 04/03/2021 08:17:34 09/23/2021 US, renal completed [email or web address] [facility] Radiology Department [address] [place], [address], 07/02/2022 16:41:14 12/16/2021 US, renal completed [email or web address] [facility]iology Department [address] [place], [address], 07/02/2022 16:41:14 12/01/2022 US, renal completed [address] Radiology Department [address] [place], [address], 12/10/2022 13:16:57 Procedure Notes None recorded. Medical Equipment None Reported. Allergies No known drug allergies Medications Name Sig Start Date Stop Date Status Note LastModified by Organization Details LastModified Time cyclobenzap rine 10 mg tablet TAKE 1/2 TO 1 TABLET BY MOUTH THREE TIMES DAILY NEEDED active Not Available Not Available No t Available hydrocodone 5 mg-acetamin ophen 325 mg tablet Take 1 tablet every 6 hours by oral route. 12/10 completed Not Available Not Available Not Available clobetasol 0.05 % topical cream TOPICALLY TWICE A DAY APPLY SPARINGLY TO AFFECTED AREA active Not Available Not Available No t Available clopidogrel 75 mg tablet TAKE 1 TABLET BY MOUTH EVERY DAY active Not Available Not Available No t Available tramadol 50 mg tablet TAKE 1-2 TABS BY MOUTH EVERY 6 HRS NEEDED 12/10 completed Not Available Not Available Not Available glimepiride 2 mg tablet TAKE 1 TABLET BY MOUTH TWICE DAILY active Not Available Not Available No t Available levothyroxi ne 25 mcg tablet TAKE 1/2 TABLET BY MOUTH DAILY ALONG WITH 50MCG TABLET active Not Available Not Available No t Available terbinafine HCl 250 mg tablet active Not Available Not Available Not Available tamsulosin 0.4 mg capsule TAKE 1 CAPSULE BY MOUTH EVERY DAY 12/10 completed Not Available Not Available Not Available potassium citrate ER 10 mEq (1,080 mg) tablet,exte nded release TAKE 1 TABLET THREE TIMES A DAY 2022 active Not Available Not Available Not Avai lable levothyroxi ne 50 mcg tablet TAKE 1 TABLET BY MOUTH DAILY active Not Available Not Available No t Available nystatin 100,000 unit/gram topical cream APPLY TOPICALLY 2 3 TIMES DAILY active Not Available Not Available No t Available diclofenac sodium 50 mg tablet,[place] yed release TAKE 1 TABLET BY MOUTH TWICE A DAY NEEDED active Not Available Not Available No t Available metoprolol succinate ER 25 mg tablet,exte nded release 24 hr TAKE 1 TABLET BY MOUTH DAILY active Not Available Not Available No t Available clobetasol 0.05 % scalp solution APPLY TO AFFECTED AREA TOPICALLY TWICE A DAY APPLY SPARINGLY TO AFFECTED AREA active Not Available Not Available No t Available lisinopril 2.5 mg tablet TAKE 1 TABLET BY MOUTH DAILY active Not Available Not Available No t Available calcipotrie ne 0.005 % topical ointment APPLY TO AFFECTED AREA EXTERNALL Y TWICE A DAY active Not Available Not Available No t Available rosuvastati n 20 mg tablet TAKE 1 TABLET BY MOUTH DAILY active Not Available Not Available No t Available bupropion HCl XL 150 mg 24 hr tablet, extended release TAKE 1 TABLET BY MOUTH EVERY DAY active Not Available Not Available No t Available OneTouch UltraSoft Lancets TEST TWICE DAILY active Not Available Not Available No t Available Janumet 50 mg-1,000 mg tablet TAKE 1 TABLET BY MOUTH TWICE DAILY 12/10 completed Not Available Not Available Not Available OneTouch Verio test strips UES TO TEST BLOOD SUGAR TWICE DAILY DIRECTED active Not Available Not Available No t Available Janumet XR 50 mg-1,000 mg tablet,exte nded release TAKE 1 TABLET BY MOUTH TWICE DAILY 12/10 completed Not Available Not Available Not Available Jardiance 10 mg tablet TAKE 1 TABLET BY MOUTH EVERY MORNING active Not Available Not Available No t Available Otezla Starter 10 mg (4)-20 mg (4)-30 mg(47) tablets in a dose pack active Not Available Not Available Not Available OneTouch Delica Plus Lancet 30 gauge USE TO TEST BLOOD SUGAR TWICE DAILY active Not Available Not Available No t Available Paxlovid 300 mg (150 mg x 2)-100 mg tablets in a dose pack 12/10 completed Not Available Not Available Not Available Vitals Date Recorded Body height Body mass index (BMI) Body weight Provider Name and Address Organization Details Last Updated DateTime 07/02/2022 187.96 cm 30.8 kg/m2 865717.17 g Mack chin [facility] 07/02/2022 14:42:19 Date Recorded Body height Body mass index (BMI) Body weight Provider Name and Address Organization Details Last Updated DateTime 12/10/2022 187.96 cm 30.8 kg/m2 018687.17 g Karina chin [facility] 12/10/2022 12:18:12 Date Recorded Body height Body mass index (BMI) Body weight Provider Name and Address Organization Details Last Updated DateTime 01/23/2021 187.96 cm 32.1 kg/m2 341841.09 g Savita Neubert [facility] 01/23/2021 15:26:56 Date Recorded Body height Body mass index (BMI) Body weight Provider Name and Address Organization Details Last Updated DateTime 02/22/2021 187.96 cm 32.1 kg/m2 684457.09 g Alem Murphyard [facility] 02/22/2021 11:27:22 Date Recorded Body height Body mass index (BMI) Body weight Provider Name and Address Organization Details Last Updated DateTime 03/14/2021 187.96 cm 32.1 kg/m2 648670.09 joseph Aguilerab [facility] 03/14/2021 10:25:32 Date Recorded Body height Body mass index (BMI) Body weight Provider Name and Address Organization Details Last Updated DateTime 06/11/2021 187.96 cm 32.1 kg/m2 326019.09 joseph Alem Erick [facility] 06/11/2021 14:10:20 Social History Question Answer Notes LastModified by Organizat ion Details LastModified Time Tobacco Smoking Status Former [facility] 01/23/2021 15:29:20 What Is Your Level Of Alcohol Consumption? Occasional Information not available 06/11/2021 What Is Your Level Of Caffeine Consumption? Occasional Information not available 06/11/2021 Are You Currently Employed? Yes Information not available 07/02/2022 Do You Or Have You Ever Used E-cigarettes Or Vape? Never Used Electronic Cigarettes Information not available 02/22/2021 When Did You Quit Smoking? 6-10yearssince lastcigarette Information not available 06/11/2021 Recreational Drug Use No Information not available 06/11/2021 Could You Be ? No Information not available 06/11/2021 What Was The Date Of Your Most Recent Tobacco Screening? 12/10/2022 [email or web address] Information not available 12/10/2022 What Is Your Relationship Status? Information not available 06/11/2021 Do You Or Have You Ever Used Smokeless Tobacco? Never Used Smokeless Tobacco Information not available 02/22/2021 Do You Use Any Illicit Or Recreational Drugs? No Information not available 06/11/2021 Has Tobacco Cessation Counseling Been Provided? No Information not available 07/02/2022 Do You Or Have You Ever Used Any Other Forms Of Tobacco Or Nicotine? No Information not available 06/11/2021 Sex: Male Functional Status None recorded. Mental Status None recorded. Family History Relationship Description Onset Age of this Age Resolved Age Notes Mother Family history of br east cancer Medical History Condition Response Other High Blood Pressure Y Kidney Stones Y Diabetes Y High Cholesterol Y Heart Disease Y Immunizations Vaccine Type Date Status Provider Name and Address Organization Details Recorded Time COVID-19, mRNA, LNP-S, PF, 30 mcg/0.3 mL dose 03/01/2021 [facility] 12/10/2022 12:18:25 COVID-19, mRNA, LNP-S, PF, 30 mcg/0.3 mL dose 03/22/2021 completed Karina chin [facility] 12/10/2022 12:18:25 pneumococcal polysaccharide PPV23 03/19/2022 [facility] 12/10/2022 12:18:25 Tdap 11/09/2016 [facility] 09/10/2023 15:47:52 Past Encounters Encounter ID Performer Location Encounter Start Date Encounter Closed Date Diagnosis/Indication [id number] RODOLFO Blanca [facility] [address] [place] [address] 01/23/2021 15:22:01 01/25/2021 11:59:59 Kidney stone [id number] MD ISABELA [facility] [address] [place] [address] 02/22/2021 11:05:52 02/25/2021 12:15:52 Kidney stone Hydronephrosis [id number] MD ISABELA [facility] [address] [place] [address] 03/14/2021 10:18:02 03/15/2021 12:19:35 Kidney stone Hydronephrosis [id number] MD [facility]ABELA [facility] [address] [address] 06/11/2021 14:09:34 06/12/2021 16:13:16 Kidney stone [id number] Parvez Brunner MD [facility] [address] [address] 07/02/2022 14:37:32 07/04/2022 11:21:54 Kidney stone [id number] Parvez Brunner MD [facility] [address] [place] [address] 12/10/2022 12:01:08 12/15/2022 11:46:51 Kidney stone Health Concerns Section Related Observation LastModified by Organization Detai ls LastModified Time None Recorded Concern Status LastModified by Organization Details LastModified Time None Recorded Advance Directives Directive None Recorded Payers Encounter Date Sequence Insurance Name Policy Number Policy Painting Covered Member ID Painting Member ID Guarantor Name 12/10/2022 1 [place] L[place] Orozco [id number] Lino Orozco 07/02/2022 1 [place] [id number] Lino Orozco [id number] Lino Orozco 06/11/2021 1 [place] [id number] Lino Orozco [id number] Lino Orozco 03/14/2021 1 [place] [id number] Lino Orozco [id number] Lino Orozco 02/22/2021 1 [place] [id number] Lino Orozco [id number] Lino Orozco 01/23/2021 1 [place] [id number] Lino Orozco [id number] Lino Orozco Notes Date Note Type Note Provider Name and Address Organization Details Recorded Time 01/23/2021 text/html HPI Notes: Lino is 50 y.o. male with h.o of nephrolithasis, HTN, DMII, ANGELA & hypothyroidism, referred for ureteral stones, states pain started around Dec 24. CT abd/pel NC with proximal left ureteral 4 mm stone & distal right ureteral 3 mm stone; also with b/l non-obstructing stones. He still has right flank pain 4/10, worse at night that is relatively unchanged since last month. First kidney stone at age 34. He has passed 8 or 9 conservatively. Prior URS in 2014. He is taking flomax. Denies fevers, chills, N/V. Denies gross hematuria. Medical hx iwth hypothyroidism, ANGELA. H.o. heart attack 4 years ago. Father with kidney stones. Daughter with hx of kidney stones.He recently moved from out of [facility]. He has been seen by urologist in [place]. PVR 27 mL UA >1000 glucose (pt is on Janumet which causes glucosuria), trace blood, trace ketone Emelina Bowers, PAC [address], [place], [address], [facility] 01/25/2021 13:04:39 02/22/2021 text/html HPI Notes: Lino is 50 y.o. male with h.o of nephrolithasis, HTN, DMII, ANGELA & hypothyroidism, referred for ureteral stones, states pain started around Dec 24. CT abd/pel NC with proximal left ureteral 4 mm stone & distal right ureteral 3 mm stone; also with b/l non-obstructing stones. He still has right flank pain 4/10, worse at night that is relatively unchanged since last month. First kidney stone at age 34. He has passed 8 or 9 conservatively. Prior URS in 2014. He is taking flomax. Denies fevers, chills, N/V. Denies gross hematuria. Medical hx with hypothyroidism, ANGELA. H.o. heart attack 4 years ago. Father with kidney stones. Daughter with hx of kidney stones.He recently moved from out of [facility]. He has been seen by urologist in [place]. PVR 27 mL UA >1000 glucose (pt is on Janumet which causes glucosuria), trace blood, trace ketone 02/22/2021 Kannan: Here for follow up right flank pain and nephrolithiasis. Today he reports that he was doing well and had passed a stone last week, but awoke at 4:30 this morning with new pain. Underwent repeat CT (dated 02/22/21) which is reviewed and interpreted by me revealing multiple bilateral non-obstructing stones. Bilateral ureteral calculi, small 2 mm stone within the proximal left ureter and 5 mm stone within the proximal right ureter with associated mild-moderate hydroureteronephrosis . Parvez Brunner MD [address], [place], [address], [facility] 02/22/2021 13:44:23 03/14/2021 text/html HPI Notes: Lino is 50 y.o. male with h.o of nephrolithasis, HTN, DMII, ANGELA & hypothyroidism, referred for ureteral stones, states pain started around Dec 24. CT abd/pel NC with proximal left ureteral 4 mm stone & distal right ureteral 3 mm stone; also with b/l non-obstructing stones. He still has right flank pain 4/10, worse at night that is relatively unchanged since last month. First kidney stone at age 34. He has passed 8 or 9 conservatively. Prior URS in 2014. He is taking flomax. Denies fevers, chills, N/V. Denies gross hematuria. Medical hx with hypothyroidism, ANGELA. H.o. heart attack 4 years ago. Father with kidney stones. Daughter with hx of kidney stones.He recently moved from out of [facility]. He has been seen by urologist in [place]. PVR 27 mL UA >1000 glucose (pt is on Janumet which causes glucosuria), trace blood, trace ketone 02/22/2021 Kannan: Here for follow up right flank pain and nephrolithiasis. Today he reports that he was doing well and had passed a stone last week, but awoke at 4:30 this morning with new pain. Underwent repeat CT (dated 02/22/21) which is reviewed and interpreted by me revealing multiple bilateral non-obstructing stones. Bilateral ureteral calculi, small 2 mm stone within the proximal left ureter and 5 mm stone within the proximal right ureter with associated mild-moderate hydroureteronephrosis . 03/14/21: Here for follow up nephrolithaisis now s/p bilateral ureteroscopy with laser lithotripsy with Dr. Cheney. Here for bilateral stent removal. Overall has been feeling well but ready for stents to be removed. Parvez Brunner MD [address], [place], [address], [facility] 03/14/2021 11:27:57 06/11/2021 text/html HPI Notes: Lino is 50 y.o. male with h.o of nephrolithasis, HTN, DMII, ANGELA & hypothyroidism, referred for ureteral stones, states pain started around Dec 24. CT abd/pel NC with proximal left ureteral 4 mm stone & distal right ureteral 3 mm stone; also with b/l non-obstructing stones. He still has right flank pain 4/10, worse at night that is relatively unchanged since last month. First kidney stone at age 34. He has passed 8 or 9 conservatively. Prior URS in 2014. He is taking flomax. Denies fevers, chills, N/V. Denies gross hematuria. Medical hx with hypothyroidism, ANGELA. H.o. heart attack 4 years ago. Father with kidney stones. Daughter with hx of kidney stones.He recently moved from out of [facility]. He has been seen by urologist in [place]. PVR 27 mL UA >1000 glucose (pt is on Janumet which causes glucosuria), trace blood, trace ketone 02/22/2021 Kannan: Here for follow up right flank pain and nephrolithiasis. Today he reports that he was doing well and had passed a stone last week, but awoke at 4:30 this morning with new pain. Underwent repeat CT (dated 02/22/21) which is reviewed and interpreted by me revealing multiple bilateral non-obstructing stones. Bilateral ureteral calculi, small 2 mm stone within the proximal left ureter and 5 mm stone within the proximal right ureter with associated mild-moderate hydroureteronephrosis . 03/14/21: Here for follow up nephrolithaisis now s/p bilateral ureteroscopy with laser lithotripsy with Dr. Cheney. Here for bilateral stent removal. Overall has been feeling well but ready for stents to be removed. 06/11/2021: Here for follow up nephrolithiasis and review of 24 hour urine results. No recurrent flank pain, hematuria, or other concerns. Has been pushing water. This visit was conducted by telephone due to the COVID-19 crisis. Prior to conducting our telephone visit, the patient was apprised of the risks, benefits and alternatives to telephone visits including but not limited to poor audio quality, interrupted visits due to technological limitations, delays in medical evaluation and treatment due to deficiencies or failures of equipment, failure of security protocols resulting in a breach of privacy of personal medical information and a lack of access to complete medical records resulting in not fully informed decisions. Also, because of the COVID-19 pandemic, it was not possible for the patient to sign the privacy regulations, HIPAA release and assignment of benefits forms. The patient was given the opportunity to ask questions about these policies and gave verbal acknowledgement and approval of these policies as well as to hold this meeting by telephone. Lastly, the patient agreed to allowing their medication history to be pulled from a national pharmacy database to facilitate and coordinate their care. Parvez Brunner MD [address] [place] [address],[address], [place], [address], [facility] 06/11/2021 14:58:09 07/02/2022 text/html HPI Notes: Lino is 51 y.o. male with h.o of nephrolithasis, HTN, DMII, ANGELA & hypothyroidism, referred for ureteral stones, states pain started around Dec 24. CT abd/pel NC with proximal left ureteral 4 mm stone & distal right ureteral 3 mm stone; also with b/l non-obstructing stones. He still has right flank pain 4/10, worse at night that is relatively unchanged since last month. First kidney stone at age 34. He has passed 8 or 9 conservatively. Prior URS in 2014. He is taking flomax. Denies fevers, chills, N/V. Denies gross hematuria. Medical hx with hypothyroidism, ANGELA. H.o. heart attack 4 years ago. Father with kidney stones. Daughter with hx of kidney stones.He recently moved from out of [facility]. He has been seen by urologist in [place]. PVR 27 mL UA >1000 glucose (pt is on Janumet which causes glucosuria), trace blood, trace ketone 02/22/2021 Kannan: Here for follow up right flank pain and nephrolithiasis. Today he reports that he was doing well and had passed a stone last week, but awoke at 4:30 this morning with new pain. Underwent repeat CT (dated 02/22/21) which is reviewed and interpreted by me revealing multiple bilateral non-obstructing stones. Bilateral ureteral calculi, small 2 mm stone within the proximal left ureter and 5 mm stone within the proximal right ureter with associated mild-moderate hydroureteronephrosis . 03/14/21: Here for follow up nephrolithaisis now s/p bilateral ureteroscopy with laser lithotripsy with Dr. Cheney. Here for bilateral stent removal. Overall has been feeling well but ready for stents to be removed. 06/11/2021: Here for follow up nephrolithiasis and review of 24 hour urine results. No recurrent flank pain, hematuria, or other concerns. Has been pushing water. This visit was conducted by telephone due to the COVID-19 crisis. Prior to conducting our telephone visit, the patient was apprised of the risks, benefits and alternatives to telephone visits including but not limited to poor audio quality, interrupted visits due to technological limitations, delays in medical evaluation and treatment due to deficiencies or failures of equipment, failure of security protocols resulting in a breach of privacy of personal medical information and a lack of access to complete medical records resulting in not fully informed decisions. Also, because of the COVID-19 pandemic, it was not possible for the patient to sign the privacy regulations, HIPAA release and assignment of benefits forms. The patient was given the opportunity to ask questions about these policies and gave verbal acknowledgement and approval of these policies as well as to hold this meeting by telephone. Lastly, the patient agreed to allowing their medication history to be pulled from a national pharmacy database to facilitate and coordinate their care. 07/02/2022: Here for follow up nephrolithiasis. No recurrence of flank pain, hematuria, dysuria, or other concerns of recent stone episodes. Parvez Brunner MD [address], [place], [address], [facility] 07/02/2022 16:43:00 12/10/2022 text/html HPI Notes: Lino is 52 y.o. male with h.o of nephrolithasis, HTN, DMII, ANGELA & hypothyroidism, referred for ureteral stones, states pain started around Dec 24. CT abd/pel NC with proximal left ureteral 4 mm stone & distal right ureteral 3 mm stone; also with b/l non-obstructing stones. He still has right flank pain 4/10, worse at night that is relatively unchanged since last month. First kidney stone at age 34. He has passed 8 or 9 conservatively. Prior URS in 2014. He is taking flomax. Denies fevers, chills, N/V. Denies gross hematuria. Medical hx with hypothyroidism, ANGELA. H.o. heart attack 4 years ago. Father with kidney stones. Daughter with hx of kidney stones.He recently moved from out of [facility]. He has been seen by urologist in [place]. PVR 27 mL UA >1000 glucose (pt is on Janumet which causes glucosuria), trace blood, trace ketone 02/22/2021 Kannan: Here for follow up right flank pain and nephrolithiasis. Today he reports that he was doing well and had passed a stone last week, but awoke at 4:30 this morning with new pain. Underwent repeat CT (dated 02/22/21) which is reviewed and interpreted by me revealing multiple bilateral non-obstructing stones. Bilateral ureteral calculi, small 2 mm stone within the proximal left ureter and 5 mm stone within the proximal right ureter with associated mild-moderate hydroureteronephrosis . 03/14/21: Here for follow up nephrolithaisis now s/p bilateral ureteroscopy with laser lithotripsy with Dr. Cheney. Here for bilateral stent removal. Overall has been feeling well but ready for stents to be removed. 06/11/2021: Here for follow up nephrolithiasis and review of 24 hour urine results. No recurrent flank pain, hematuria, or other concerns. Has been pushing water. 07/02/2022: Here for follow up nephrolithiasis. No recurrence of flank pain, hematuria, dysuria, or other concerns of recent stone episodes. 12/10/2022: Here for follow up chronic nephrolithiasis. He underwent a surveillance renal US dated 12/01/22 for my review. Bilateral punctate hyperechogenic areas suggesting small non-obstructing stones. No hydronephrosis bilaterally. Bilateral simple renal cysts. Parevz Brunner MD [address], [place], [address], [facility] 12/10/2022 13:19:09
--- OUTSIDE RECORDS SUMMARY | 2023-11-18 09:34 | XMS_ITS | Clinical Summary ---
Author Name Unknown Organization [facility] Address [address] [place] [address] Care Team Providers Care Environmental Communications Specialist Name Role Phone [facility]- Primary Care Provider Allergies No [...] daily (before meals) 0 Active nystatin (MYCOSTATIN) 340753 UNIT/GM external cream Apply topically 2 times [...] Comments Blood Pressure 113/68 12/04/2021 11:29 PM TOMBSTONE SETTER Pulse 64 12/04/2021 11:29 PM TOMBSTONE SETTER Temperature 36.9 ??C (98.4 ??F) 12/04/2021 8:29 PM CS T Respiratory Rate 18 12/04/2021 8:29 PM TOMBSTONE SETTER Oxygen Saturation 100% 12/04/2021 11:34 PM TOMBSTONE SETTER Inhaled Oxygen Concentration - - Weight 113.9 [...] this topic Medical Devices Implanted Type Area Assistant Women'S Tennis Coach Device Identifier Shelf Expiration Date Model / Serial / Lot Stent Ureteral Polaris Ultra [id number] Implanted:Qty: 1 on 03/05/2021 by Lino Cheney MD at [facility] Stent Left: Ureter [employer] 12/02/2023 [id number] / / [id number] Care Teams Environmental Communications Specialist Relationship Specialty Start Date End Date [facility]- [address] [place] [address] PCP - General 02/26/21
== END 2023-11-18 09:06 | disposition home or self-care (01) ==
LOC: US 09:06
PROVIDERS: PCP Physician Assistant Medical; Visit Provider Urology
DX: N20.0 Calculus of kidney (principal)
CPT/HCPCS: 76775

== ENCOUNTER 2023-12-01 13:48 | Outpatient (CLI) | payer BC, SELFPAY ==
--- OUTSIDE RECORDS SUMMARY | 2023-12-01 13:51 | XMS_ITS | Encounter Summary ---
Author Name Unknown Organization [facility] Address [address] [place] [address] [place] [address] Care Team Providers Care Associate Project Manager Name Role Phone Phillip Sánchez DO Unavailable [phone] Porfirio Zaman MD Primary Care Provider [phone] Encounter Details Date Type Department Care Team Description 01/23/2018 Abstract [facility] CONVERSION [address] [place] [address] , Generic MD [place] Social [...] on filedocumented in this encounter Care Teams Associate Project Manager Relationship Specialty Start Date End Date Phillip Sánchez DO [address] [place] [address] PCP - HEART & VASCULAR CARE CARDIOVASCULAR DISEASE 06/07/18 Porfirio Zaman MD [address] [place] [address] PCP - General FAMILY PRACTICE 06/07/18 documented as of this encounter
--- OUTSIDE RECORDS SUMMARY | 2023-12-01 13:51 | XMS_ITS | Referral Summary ---
Author Name Unknown Organization [facility] Address [address] [place] [address] Care Team Providers Care Sales And Events Coordinator Name Role Phone [facility]- Primary Care Provider Allergies No known active [...] daily (before meals) 0 Active nystatin (MYCOSTATIN) 605056 UNIT/GM external cream Apply topically 2 times [...] Comments Blood Pressure 113/68 12/04/2021 11:29 PM GARAGE MECHANIC Pulse 64 12/04/2021 11:29 PM GARAGE MECHANIC Temperature 36.9 ??C (98.4 ??F) 12/04/2021 8:29 PM CS T Respiratory Rate 18 12/04/2021 8:29 PM GARAGE MECHANIC Oxygen Saturation 100% 12/04/2021 11:34 PM GARAGE MECHANIC Inhaled Oxygen Concentration - - Weight 113.9 kg (251 lb) 03/05/2021 5:47 AM CDT Height 185.4 cm (6' 1) 03/05/2021 5:47 AM CDT Body Mass Index 33.12 03/05/2021 5:47 AM CDT Plan of Treatment Not on file Medical Devices Implanted Type Area Lending Manager Device Identifier Shelf Expiration Date Model / Serial / Lot Stent Ureteral Polaris Ultra [id number] Implanted:Qty: 1 on 03/05/2021 by Lino Cheney MD at [facility] Stent Left: Ureter [employer] 12/02/2023 [id number] / / [id number] Care Teams Sales And Events Coordinator Relationship Specialty Start Date End Date [facility]- [address] [place], [place] [id number] PCP - General 02/26/21
--- OUTSIDE RECORDS SUMMARY | 2023-12-01 13:51 | XMS_ITS | Clinical Summary ---
Author Name Unknown Organization [facility] Address [address] [place] [address] Care Team Providers Care Compliance Examiner Name Role Phone [facility]- Primary Care Provider Allergies No [...] daily (before meals) 0 Active nystatin (MYCOSTATIN) 235371 UNIT/GM external cream Apply topically 2 times [...] Comments Blood Pressure 113/68 12/04/2021 11:29 PM TIRE RECAPPING MACHINE OPERATOR Pulse 64 12/04/2021 11:29 PM TIRE RECAPPING MACHINE OPERATOR Temperature 36.9 ??C (98.4 ??F) 12/04/2021 8:29 PM CS T Respiratory Rate 18 12/04/2021 8:29 PM TIRE RECAPPING MACHINE OPERATOR Oxygen Saturation 100% 12/04/2021 11:34 PM TIRE RECAPPING MACHINE OPERATOR Inhaled Oxygen Concentration - - Weight [...] this topic Medical Devices Implanted Type Area Weight Shifter Device Identifier Shelf Expiration Date Model / Serial / Lot Stent Ureteral Polaris Ultra [id number] Implanted:Qty: 1 on 03/05/2021 by Lino Cheney MD at [facility] Stent Left: Ureter [employer] 12/02/2023 [id number] / / [id number] Care Teams Compliance Examiner Relationship Specialty Start Date End Date [facility]- [address] [place] [address] PCP - General 02/26/21
--- OUTSIDE RECORDS SUMMARY | 2023-12-01 13:51 | XMS_ITS | Clinical Summary ---
Author Name Unknown Organization [facility] Address [address] [place] [address] [place] [address] Care Team Providers Care Nurse Transitional Name Role Phone Phillip Sánchez Ethan DO Unavailable [phone] Porfirio Zaman MD Primary Care Provider [phone] Allergies No known active allergies Medications Medication [...] complication, without long-term current use of insulin ([facility]) ([facility]) TEST TWICE DAILY. 60 each 5 03/28/2019 Active simvastatin 40 MG tabletIndications:Dy slipidemia Take 1 tablet (40 mg total) by mouth nightly at bedtime. 90 tablet 1 04/01/2019 Active glimepiride 2 MG tabletIndications:Di abetes ([facility]) ([facility]) TAKE 2 TABLETS BY MOUTH DAILY 180 tablet 5 05/11/2019 Active METFORMIN 500 MG tabletIndications:Di abetes ([facility]) ([facility]) TAKE 1 TABLET BY MOUTH TWICE DAILY 180 tablet 0 06/23/2019 Active levothyroxine 50 MCG tabletIndications:Th yroid condition TAKE 1 TABLET(50 MCG) BY MOUTH DAILY 90 tablet 1 09/19/2019 Active Active Problems Problem Noted Date Diagnosed Date Recurrent kidney stones 01/29/2019 Coronary artery disease of n ative artery of [place] heart with stable angina pectoris 11/19/2018 Essential hypertension 11/19/2018 Dyslipidemia 11/19/2018 Type 2 diabetes mellitus wit hout complication, without long-term current use of insulin ([facility]) 11/19/2018 Hypothyroidism 03/16/2015 Sleep apnea 04/19/2014 Resolved Problems Problem Noted Date Diagnosed Date Resolved Date Need for diphtheria-tetanus- pertussis (Tdap) vaccine 11/19/2018 01/23/2019 Acute MO 02/27/2017 01/23/2019 Immunizations Name Administration Dates Next [...] age to complete this topic Care Teams Nurse Transitional Relationship Specialty Start Date End Date Phillip Sánchez DO [address] [place] [id number] PCP - HEART & VASCULAR CARE CARDIOVASCULAR DISEASE 06/07/18 Porfirio Zaman MD [address] [place] [address] PCP - General FAMILY PRACTICE 06/07/18
--- OUTSIDE RECORDS SUMMARY | 2023-12-01 13:51 | XMS_ITS | Encounter Summary ---
Author Name Unknown Organization [facility] Address [address] [place] [address] [place] [address] Care Team Providers Care Student Dean Name Role Phone Phillip Sánchez DO Unavailable [phone] Porfirio Zaman MD Primary Care Provider Encounter Details Date Type Department Care Team Description 02/17/2023 Scan [employer] SRVCS Scanned, Doc [facility] Social [...] on filedocumented in this encounter Care Teams Student Dean Relationship Specialty Start Date End Date Phillip Sánchez DO [address] [place] [address] PCP - HEART & VASCULAR CARE CARDIOVASCULAR DISEASE 06/07/18 Porfirio Zaman MD [address] [facility] [place] [address] PCP - General FAMILY PRACTICE 06/07/18 documented as of this encounter
--- OUTSIDE RECORDS SUMMARY | 2023-12-01 13:51 | XMS_ITS | Data Portability ---
Author Name Unknown Address [address] [place] [address] Phone [phone] Organization [facility], [facility] Address [address] [place] [address] Care Team Providers Care Lace Roller Name Role Phone [facility] Primary Care Provider [phone] Assessment Encounter Date Assessment Date Assessment LastModified [...] bilateral ureteral calculi with associated right hydronephrosis. [facility] Not available 12/09/2022 10:09:59 11/30/2023 11/30/2023 53 year old male with bilateral urolithiasis including bilateral ureteral calculi with associated right hydronephrosis. [facility] 11/30/2023 08:58:20 Plan of Treatment Reminders Order Date Submit Date Provider Last Modified By Organization Details Last Modified Time Details Appointments None recorded . Lab BMP, serum or plasma [address] [facility], [address] [place], [address], 2 08:31:55 BMP, serum or plasma 2020 [facility] [address] [place], [address], 1 09:48:09 kidney stone, 24-hour urine panel 2020 021 [facility], [address], [place], [address], 1 15:07:16 urinalys is, dipstick 2020 021 [email or web address] Not available 15:55:44 Referral None recorded . Procedures None recorded . Surgeries cystosco py, with ureteros copy, with lithotri psy, with insertio n of ureteral stent (SURG) 2020 021 [email or web address] Not available 12:09:10 Imaging US, renal 2023 025 [facility] Radiology Department, [address] [place], [address], 4 16:36:05 US, renal 2022 023 [facility] Radiology Department, [address] [place], [address], 3 10:04:10 US, renal - Pt needs in late Dec 2021, please call patient to schedule , thanks. 2021 022 [facility] Radiology Department, [address] [place], [address], 2 15:15:27 US, renal - Pt needs in late Dec 2021, please call patient to schedule , thanks. 2020 021 [facility] Radiology Department, [address] [place], [address], 1 13:36:56 XR, kidney + ureter + bladder 2020 021 [email or web address] Not available 1 13:13:03 Medication Orders potassiu m citrate ER 10 mEq (1,080 mg) tablet,e xtended release 2023 024 [place] [facility], [address] [place] [address], [address], 4 16:36:07 potassiu m citrate ER 10 mEq (1,080 mg) tablet,e xtended release 2022 023 [facility] # [address], [place], [address], 3 20:16:01 potassiu m citrate ER 10 mEq (1,080 mg) tablet,e xtended release [address], [address], [place], [address], 2 16:41:17 potassiu m citrate ER 10 mEq (1,080 mg) tablet,e xtended release 2020 021 [facility] [address] , [place], [address], 14:57:31 Patient TargetsNo targets recorded. Patient Instructions Encounter Date Encounter Id Patient Instructions Last Modified By Organization Details Last Modified Time 02/22/2021 [id number] Ureteroscopy wit h Stone Manipulation - PATIENT [...] Available [facility] [address], [place], [address], 01/23/2021 15:30:51 01/23/2021 urina lysis , dipst ick Clarity-Stat us Clear Not Available [facility] [address], [place], [address], 01/23/2021 15:30:51 01/23/2021 urina lysis , dipst ick Glucose-Stat us 1000 Not Available [facility] [address], [place], [address], 01/23/2021 15:30:51 01/23/2021 urina lysis , dipst ick pH-Status 5.5 Not Available [facility] [address], [place], [address], 01/23/2021 15:30:51 01/23/2021 urina lysis , dipst ick Blood-Status Trace Not Available [facility] [address], [place], [address], 01/23/2021 15:30:51 01/23/20 21 01/18/2021 CT, abdom en + pelvi s, w/o contr ast No observ ation record ed. Not Available 01/22/2021 15:39:11 01/24/20 21 01/23/2021 CT, abdom en + pelvi s, w/o contr ast No observ ation record ed. [facility] [address], [place], [address], 02/22/2021 13:39:49 01/25/20 bladd er scan (PROC ) No observ ation record ed. Not Available 02/22/2021 13:39:49 02/26/20 21 02/22/2021 CT, abdom en + pelvi s, w/o contr ast No observ ation record ed. [facility] [address], [place], [address], 03/14/2021 11:24:01 04/02/20 21 04/01/2021 CT, abdom en + pelvi s, w/o contr ast No observ ation record ed. [email or web address] [facility] [address], [place], [address], 04/03/2021 08:17:34 09/24/20 21 09/23/2021 US, renal No observ ation record ed. [facility] Radiology Department [address] [facility], [place], [address], 07/02/2022 16:41:14 12/17/1912/16/2021 US, renal No observ ation record ed. [facility] Radiology Department [address] [place], [address], 07/02/2022 16:41:14 12/01/19 23 12/01/2022 US, renal No observ ation record ed. [facility] Radiology Department [address] [place], [address], 12/10/2022 13:16:57 11/23/19 24 11/18/2023 US, renal No observ ation record ed. [email or web address] [facility] Radiology Department [address] [place], [address], 11/30/2023 16:34:06 Result Notes None recorded. Procedures Surgical History Date Name Laterality Status Provider Name and Address Organization Details Recorded Time Cystoscopy with foreign body/stent removal completed Parvez Brunner MD [address] [place] [address],[address], [address], [facility] 03/14/2021 11:25:44 Bladder Scan completed Savita chin [facility] 01/23/2021 16:01:51 placement of stent in pulmonary artery completed Savita chin [facility] 01/23/2021 15:29:56 Imaging Results Imaging Date Name Status LastModified by [facility] Details LastModified Time 01/18/2021 CT, abdomen + pelvis, w/o contrast completed Information not available 01/22/2021 15:39:11 01/23/2021 CT, abdomen + pelvis, w/o contrast completed [facility] [address], [place], [address], 02/22/2021 13:39:49 01/24/2021 bladder scan (PROC) [facility] Information not available 02/22/2021 13:39:49 02/22/2021 CT, abdomen + pelvis, w/o contrast [facility] [address], [address], 03/14/2021 11:24:01 04/01/2021 CT, abdomen + pelvis, w/o contrast completed [email or web address] [address] [place], [address], 04/03/2021 08:17:34 09/23/2021 US, renal completed [address] Radiology Department [address] [place], [address], 07/02/2022 16:41:14 12/16/2021 US, renal completed [address] Radiology Department [address] [place], [address], 07/02/2022 16:41:14 12/01/2022 US, renal completed [address] Radiology Department [address] [place], [address], 12/10/2022 13:16:57 11/18/2023 US, renal completed [address] Radiology Department [address] [place], [address], 11/30/2023 16:34:06 Procedure Notes None recorded. Medical Equipment None Reported. Allergies No known drug allergies Medications Name Sig Start Date Stop Date Status Note LastModified by Organization Details LastModified Time cyclobenzap rine 10 mg tablet TAKE 1/2 TO 1 TABLET BY MOUTH THREE TIMES DAILY NEEDED 11/30 completed Not Available Not Available Not Available hydrocodone 5 mg-acetamin ophen 325 mg [...] t Available terbinafine HCl 250 mg tablet 11/30 completed Not Available Not Available Not Available methotrexat e sodium 2.5 mg tablet active Not Available Not Available Not Available tamsulosin 0.4 mg capsule TAKE 1 CAPSULE BY MOUTH EVERY DAY 12/10 completed Not Available Not Available Not Available potassium citrate ER 10 mEq (1,080 mg) tablet,exte nded release Take 3 tablets every day by oral route. 2023 active Not Available Not Available Not Avai lable metformin 1,000 mg tablet active Not Available Not Available Not Available nystatin 100,000 unit/gram topical cream APPLY TOPICALLY 2 3 TIMES DAILY 11/30 completed Not Available Not Available Not Available calcipotrie ne 0.005 % topical cream active Not Available Not Available Not Available Synthroid 50 mcg tablet TAKE 1 TABLET BY MOUTH DAILY active Not Available Not Available No t Available diclofenac sodium 50 mg tablet,[place] yed release TAKE 1 TABLET BY MOUTH TWICE A DAY NEEDED 11/30 completed Not Available Not Available Not Available metoprolol succinate ER 25 mg tablet,exte [...] AFFECTED AREA EXTERNALL Y TWICE A DAY 11/30 completed Not Available Not Available Not Available rosuvastati n 20 mg tablet TAKE 1 TABLET BY MOUTH DAILY active Not Available Not Available No t Available bupropion HCl XL 150 mg 24 hr tablet, extended release TAKE 1 TABLET BY MOUTH EVERY DAY 11/30 completed Not Available Not Available Not Available OneTouch UltraSoft Lancets TEST TWICE DAILY active Not Available Not Available No t Available Janumet 50 mg-1,000 mg tablet TAKE 1 TABLET BY MOUTH TWICE DAILY active Not Available Not Available No t Available OneTouch Verio test strips UES TO [...] (4)-30 mg(47) tablets in a dose pack 11/30 completed Not Available Not Available Not Available OneTouch Delica Plus Lancing Device kit DIRECTED- TWICE DAILY FOR DIABETES active Not Available Not Available No t Available OneTouch Delica Plus Lancet 30 gauge [...] Updated DateTime 07/02/2022 187.96 cm 30.8 kg/m2 345338.17 g Mack Schultz [facility] 07/02/2022 14:42:19 Date Recorded Body height Body mass index (BMI) Body weight Provider Name and Address Organization Details Last Updated DateTime 12/10/2022 187.96 cm 30.8 kg/m2 828054.17 g Karina Pandey [facility] 12/10/2022 12:18:12 Date Recorded Body height Body mass index (BMI) Body weight Provider Name and Address Organization Details Last Updated DateTime 11/30/2023 187.96 cm 29.5 kg/m2 665144.25 g Karina Pandey [facility] 11/30/2023 15:43:35 Date Recorded Body height Body mass index (BMI) Body weight Provider Name and Address Organization Details Last Updated DateTime 01/23/2021 187.96 cm 32.1 kg/m2 856469.09 g Savita Gilbert [facility] 01/23/2021 15:26:56 Date Recorded Body height Body mass index (BMI) Body weight Provider Name and Address Organization Details Last Updated DateTime 02/22/2021 187.96 cm 32.1 kg/m2 872844.09 joseph Ferrara [facility] 02/22/2021 11:27:22 Date Recorded Body height Body mass index (BMI) Body weight Provider Name and Address Organization Details Last Updated DateTime 03/14/2021 187.96 cm 32.1 kg/m2 619667.09 g Freddie [facility]anne [facility] 03/14/2021 10:25:32 Date Recorded Body height Body mass index (BMI) Body weight Provider Name and Address Organization Details Last Updated DateTime 06/11/2021 187.96 cm 32.1 kg/m2 390443.09 g Alem Erick [facility] 06/11/2021 14:10:20 Social History Question Answer Notes LastModified by Organizat ion Details LastModified Time Tobacco Smoking Status Former Smoker [facility] 01/23/2021 15:29:20 What Is Your Level Of [...] Date Of Your Most Recent Tobacco Screening? 11/30/2023 [email or web address] Information not available 11/30/2023 What Is Your Relationship Status? Information not [...] High Blood Pressure Y Kidney Stones Y High Cholesterol Y Diabetes Y Heart Disease Y Immunizations Vaccine Type Date Status Provider Name and Address Organization Details Recorded Time COVID-19, mRNA, LNP-S, PF, 30 mcg/0.3 mL dose 03/01/2021 completed Karina chin, [facility] 12/10/2022 12:18:25 COVID-19, mRNA, LNP-S, PF, 30 mcg/0.3 mL dose 03/22/2021 completed Karina chin, [facility] 12/10/2022 12:18:25 pneumococcal polysaccharide PPV23 03/19/2022 completed Karina chin, [facility] 12/10/2022 12:18:25 Tdap 11/09/2016 completed [facility] 09/10/2023 15:47:52 Past Encounters Encounter ID Performer Location Encounter Start Date Encounter Closed Date Diagnosis/Indication [id number] RODOLFO Blanca [facility] [address] [place] [address] 01/23/2021 15:22:01 01/25/2021 11:59:59 Kidney stone [id number] Parvez Brunner MD [facility] [address] [place] [address] 02/22/2021 11:05:52 02/25/2021 12:15:52 Kidney stone Hydronephrosis [id number] MD ISABELA [facility] [address] [place] [address] 03/14/2021 10:18:02 03/15/2021 12:19:35 Kidney stone Hydronephrosis [id number] MD ISABELA [facility] [address] [place] [address] 06/11/2021 14:09:34 06/12/2021 16:13:16 Kidney stone [id number] MD ISABELA [facility] [address] [place] [address] 07/02/2022 14:37:32 07/04/2022 11:21:54 Kidney stone [id number] Parvez Brunner MD [facility] [address] [place] [address] 12/10/2022 12:01:08 12/15/2022 11:46:51 Kidney stone [id number] Parvez Brunner MD [facility] [address] [place] [address] 11/30/2023 15:15:43 11/30/2023 16:36:41 Kidney stone Health Concerns Section Related Observation LastModified by Organization Detai ls LastModified Time None Recorded Concern Status LastModified by Organization Details LastModified Time None Recorded Advance Directives Directive None Recorded Payers Encounter Date Sequence Insurance Name Policy Number Policy Painting Covered Member ID Painting Member ID Guarantor Name 11/30/2023 1 [place] L[place] Orozco [id number] Lino Orozco 12/10/2022 1 [place] L[place] Orozco [id number] Lino Orozco 07/02/2022 1 [place] [id number] Lino Orozco [id number] Lino Orozco 06/11/2021 1 [place] [id number] Lino Orozco [id number] Lino Orozco 03/14/2021 1 [place] [id number] Lino Orozco [id number] Lino Orozco 02/22/2021 1 [place] [id number] Lino Orozco [id number] Lino Orozoc 01/23/2021 1 [place] [id number] Lino Orozco [id number] Lino Orozco Notes Date Note Type [...] kidney stones.He recently moved from out of [facility]. He has been seen by urologist in [place]. PVR 27 mL UA >1000 glucose (pt is on Janumet which causes glucosuria), trace blood, trace ketone Emelina Bowers, RODOLFO [address] [place] [address],[address], [place], [address], [facility] 01/25/2021 13:04:39 02/22/2021 text/html HPI Notes: [...] kidney stones.He recently moved from out of [facility]. He has been seen by urologist in [place]. PVR 27 mL UA >1000 glucose (pt [...] mild-moderate hydroureteronephrosis . Parvez Brunner MD [address] [facility],[address], [place], [address], [facility] 02/22/2021 13:44:23 03/14/2021 text/html HPI Notes: Lino [...] kidney stones.He recently moved from out of [facility]. He has been seen by urologist in [place]. PVR 27 mL UA >1000 glucose (pt [...] to be removed. Parvez Brunner MD [address] [facility],[address], [place], [address], [facility] 03/14/2021 11:27:57 06/11/2021 text/html HPI [...] kidney stones.He recently moved from out of [facility]. He has been seen by urologist in [place]. PVR 27 mL UA >1000 glucose (pt [...] and coordinate their care. Parvez Brunner MD [address] [place] [address],[address], [place], [address], [facility] 06/11/2021 14:58:09 07/02/2022 text/html HPI Notes: [...] kidney stones.He recently moved from out of [facility]. He has been seen by urologist in [place]. PVR 27 mL UA >1000 glucose (pt [...] recent stone episodes. Parvez Brunner MD [address], [place], [address], [facility] 07/02/2022 16:43:00 12/10/2022 text/html HPI [...] kidney stones.He recently moved from out of [facility]. He has been seen by urologist in [place]. PVR 27 mL UA >1000 glucose (pt [...] No hydronephrosis bilaterally. Bilateral simple renal cysts. Parvez Brunner MD [address], [place], [address], [facility] 12/10/2022 13:19:09 11/30/2023 text/html HPI Notes: Lino is 53 y.o. male with h.o of nephrolithasis, HTN, [...] 8 or 9 conservatively. Prior URS in 2015. He is taking flomax. Denies fevers, chills, N/V. Denies gross hematuria. Medical hx with hypothyroidism, ANGELA. H.o. heart attack 4 years ago. Father with kidney stones. Daughter with hx of kidney stones.He recently moved from out of [facility]. He has been seen by urologist in [place]. PVR 27 mL UA >1000 glucose (pt [...] No hydronephrosis bilaterally. Bilateral simple renal cysts. 11/30/2023: Here for follow-up chronic and recurrent nephrolithiasis. Underwent his annual surveillance renal ultrasound for my review dated 11/18/2023? ? Stable appearance of simple renal cysts. Small punctate stone seen in the left midpole calyx but otherwise no hydronephrosis or other pathology visualized. Parvez Brunner MD [address] [place], [place] [address] [address], [place], [address], [facility] 11/30/2023 16:36:37
--- OUTSIDE RECORDS SUMMARY | 2023-12-01 13:51 | XMS_ITS | Encounter Summary ---
Author Name Unknown Organization [place] Address [address] [place] [address] Care Team Providers Care Mobile Application Tester Name Role Phone [facility]- Primary Care Provider Encounter Details Date Type [...] COVID-19? No / Unsure 12/04/2021 8:25 PM RECEIVABLE CLERK documented as of this encounter Plan of Treatment Not on file documented as of this encounter Visit Diagnoses Not on filedocumented in this encounter Care Teams Mobile Application Tester Relationship Specialty Start Date End Date [facility]- [address] [place] [address] PCP - General 02/26/21 documented as of this encounter
--- OUTSIDE RECORDS SUMMARY | 2023-12-01 13:51 | XMS_ITS | Encounter Summary ---
Author Name Unknown Organization [facility] Address [address] [place] [address] [place] [address] Care Team Providers Care Ob/Gyn Doctor Name Role Phone Phillip Sánchez DO Unavailable [phone] Porfirio Zaman MD Primary Care Provider [phone] Encounter Details Date Type Department Care Team Description 01/30/2023 Scan [email or web address] INFO SRVCS Scanned, [facility] Social [...] on filedocumented in this encounter Care Teams Ob/Gyn Doctor Relationship Specialty Start Date End Date Phillip Sánchez DO [address] [place] [address] PCP - HEART & VASCULAR CARE CARDIOVASCULAR DISEASE 06/07/18 Porfirio Zaman MD [address] [facility] [place] [address] PCP - General FAMILY PRACTICE 06/07/18 documented as of this encounter
--- OUTSIDE RECORDS SUMMARY | 2023-12-01 13:51 | XMS_ITS | Clinical Summary ---
Author Name Unknown Organization [employer] [facility] Address [place], [place] [address] Care Team Providers Care Grant Officer Name Role Phone Estephania Vela Primary Care [...] Tablet by mouth two times daily. 0 Discontinue d(*Medicati on adjustment) Encounters Date Type Department Care Team Description 11/25/2023 Orders Only [facility] [address] [place] [address] Shani Powers NP <No scans attached> 10/30/2023 2:00 PM LAMINATOR HAND Office Visit [facility] [address] [place] [address] Samuel Restrepo MD 10/30/2023 Telephone [facility] [address] [place] [address] Samuel Restrepo MD from Last 3 Months [...] Influenza for age 50-64 07/10/2023 Care Teams Grant Officer Relationship Specialty Start Date End Date Estephania Vela PCP - General 08/23/19
--- OUTSIDE RECORDS SUMMARY | 2023-12-01 13:52 | XMS_ITS | Continuity of Care Document ---
Author Name Unknown Address [address] [place] [address] Phone [phone] Organization [facility], [facility] Address [address] [place] [address] Care Team Providers Care Manager Developmental Name Role Phone [facility] Primary Care Provider Assessment Encounter Date Assessment Date Assessment LastModified by Organization Details LastModified Time 11/30/2023 11/30/2023 53 year old male with bilateral urolithiasis including bilateral ureteral calculi with associated right hydronephrosis. [email or web address] Not available 11/30/2023 08:58:20 Plan of Treatment Reminders Order Date Submit Date Provider Last Modified By Organization Details Last Modified Time Details Appointments None recorded. Lab None recorded. Referral None recorded. Procedures None recorded. Surgeries None recorded. Imaging US, renal [address] Radiology Department, [address] [place], [address], 16:36:05 Medication Orders potassium citrate ER 10 mEq (1,080 mg) tablet,ext ended release 2023 024 [facility], [address] [facility], [place], [address], 16:36:07 Patient TargetsNo targets recorded. Patient InstructionsNo instructions recorded. Reason for Referral None Reported. Results Created Date Observation Date Name Description Value Unit Range Abnormal Flag LastModifiedBy Organization Detail LastModifiedTime 11/23/19 24 11/18/2023 US, renal No observ ation record ed. [address] Radiology Department [address] [place], [address], 11/30/2023 16:34:06 Result Notes None recorded. Procedures Surgical History Date Name Laterality Status Provider Name and Address Organization Details Recorded Time 1 Cystoscopy with foreign body/stent removal completed Parvez Brunner MD [address], [place], [address], [facility] 03/14/2021 11:25:44 Bladder Scan completed Savita chin [facility] 01/23/2021 16:01:51 placement of stent in pulmonary artery completed Savita chin [facility] 01/23/2021 15:29:56 Imaging Results None recorded. Procedure Notes None recorded. Medical Equipment None [...] Updated DateTime 11/30/2023 187.96 cm 29.5 kg/m2 550360.25 g Karina chin [facility] 11/30/2023 15:43:35 Social History Question Answer Notes LastModified by Organizat ion Details LastModified Time Tobacco Smoking Status Former Smoker Savita Vladimir chin [facility] 01/23/2021 15:29:20 What Is Your Level Of [...] br east cancer Medical History Condition Response Diabetes Y Heart Disease Y Other High Blood Pressure Y Kidney Stones Y High Cholesterol Y Immunizations Vaccine Type Date Status Provider Name and Address Organization Details Recorded Time COVID-19, mRNA, LNP-S, PF, 30 mcg/0.3 mL dose 03/01/2021 completed Karina chin, [facility] 12/10/2022 12:18:25 COVID-19, mRNA, LNP-S, PF, 30 mcg/0.3 mL dose 03/22/2021 completed Karinajohnathan Pandey null, [facility] 12/10/2022 12:18:25 pneumococcal polysaccharide PPV23 03/19/2022 completed Karina chin, [facility] 12/10/2022 12:18:25 Tdap 11/09/2016 [facility] 15:47:52 Past Encounters Encounter ID Performer Location Encounter Start Date Encounter Closed Date Diagnosis/Indication [id number] Parvez Brunner MD [facility] [address] [place] [address] 11/30/2023 15:15:43 11/30/2023 16:36:41 Kidney stone Health Concerns Section Related Observation LastModified by Organization Detai ls LastModified Time None Recorded Concern Status LastModified by Organization Details LastModified Time None Recorded Payers Encounter Date Sequence Insurance Name Policy Number Policy Painting Covered Member ID Painting Member ID Guarantor Name 11/30/2023 1 [facility] Lino Pam [id number] Lino Pam Notes Date Note Type Note Provider Name and Address Organization Details Recorded Time 11/30/2023 text/html HPI Notes: Lino is 53 [...] kidney stones.He recently moved from out of [facility]. He has been seen by urologist in [place]. PVR 27 mL UA >1000 glucose (pt [...] or other pathology visualized. Parvez Brunner MD [address], [place], [address], [facility] 11/30/2023 16:36:37
--- NOTE | 2023-12-01 14:00 | CRLHL7_ITS ---
For Patients: As a result of the Century Cures Act, medical imaging exams and procedure reports are released immediately into your electronic medical record. You may view this report before your referring provider. If you have questions, please contact your health care provider. INDICATION: Lung cancer screening. Significant smoking history. TECHNIQUE: Low-dose volumetric helical scanning of the thorax was performed without IV contrast material. Coronal and sagittal reconstructions were obtained. COMPARISON: None. FINDINGS: A subpleural noncalcified 3 mm right middle lobe nodule is demonstrated on image 97 of series 3. A calcifying 4 mm pleural-based right lower lobe nodule is noted on image 98. A 2 mm calcified granuloma is noted in the left lower lobe base. The lungs are clear. There is no significant airway abnormality. No pleural effusion is demonstrated. There is no mediastinal or hilar adenopathy. Calcified right hilar lymph nodes are noted. The heart size is normal. Calcified coronary arterial plaque is demonstrated. Images of the upper abdomen are unremarkable. IMPRESSION: 1. Noncalcified subpleural 3 mm right middle lobe nodule and several additional small calcified nodules present Lung-RADS CATEGORY 2: BENIGN APPEARANCE OR BEHAVIOR: Continue annual screening with low-dose chest CT in 12 months. 2. Coronary artery disease. Please note that all CT scans at this facility use dose modulation, iterative reconstruction, and/or weight-based dosing when appropriate to reduce radiation dose to as low as reasonably achievable. Dictated by Yayo Cody MD @ 12/02/2023 8:08:28 AM (Electronically Signed)
== END 2023-12-01 13:49 | disposition home or self-care (01) ==
LOC: CT 13:48
PROVIDERS: PCP Physician Assistant Medical; Visit Provider Physician Assistant Medical
DX: N20.0 Calculus of kidney (principal); Z87.891 Personal history of nicotine dependence
CPT/HCPCS: 71271

== ENCOUNTER 2023-12-10 08:29 | Outpatient (CLI) | payer BC, SELFPAY | END 2023-12-10 08:30 | disposition home or self-care (01) | LOC: LKVREF 08:30 | PROVIDERS: PCP Physician Assistant Medical; Visit Provider Physician Assistant Medical | DX: R79.89 Other specified abnormal findings of blood chemistry (principal) | CPT/HCPCS: 84403 ==

== ENCOUNTER 2024-01-21 13:27 | Outpatient (CLI) | payer BC, SELFPAY | END 2024-01-21 13:28 | disposition home or self-care (01) | LOC: FRMREF 13:31 | PROVIDERS: PCP Physician Assistant Medical; Visit Provider Dermatology | DX: L40.9 Psoriasis, unspecified (principal); Z79.631 Long term (current) use of antimetabolite agent | CPT/HCPCS: 80076 ==

== ENCOUNTER 2024-02-15 14:12 | Outpatient (REF) | payer BC, SELFPAY ==
--- OUTSIDE RECORDS SUMMARY | 2024-02-15 14:15 | XMS_ITS | Encounter Summary ---
Author Name Unknown Organization [facility] Address [address] [place] [address] [place] [address] Care Team Providers Care Knotter Hand Name Role Phone Phillip Sánchez DO Unavailable [phone] Porfirio Zaman MD Primary Care Provider Encounter Details Date Type Department Care Team (Late st Contact Info) Description 01/23/2018 Abstract [facility] CONVERSION [address] [place] [address] , Generic MD Abel Social [...] on filedocumented in this encounter Care Teams Knotter Hand Relationship Specialty Start Date End Date Phillip Sánchez DO [address] [place] [address] PCP - HEART & VASCULAR CARE CARDIOVASCULAR DISEASE 06/07/18 Porfirio Zaman MD [address] [place] [address] PCP - General FAMILY PRACTICE 06/07/18 12/23/23 documented as of this encounter
--- OUTSIDE RECORDS SUMMARY | 2024-02-15 14:15 | XMS_ITS | Encounter Summary ---
Author Name Unknown Organization [facility] Address [address] [place] [address] Care Team Providers Care Statistical Clerk Name Role Phone [facility]- Primary Care Provider Encounter Details Date Type [...] COVID-19? No / Unsure 12/04/2021 8:25 PM CRM TECHNICAL LEAD documented as of this encounter Plan of Treatment Not on file documented as of this encounter Visit Diagnoses Not on filedocumented in this encounter Care Teams Statistical Clerk Relationship Specialty Start Date End Date [facility]- [address] [place] [address] PCP - General 02/26/21 documented as of this encounter
--- OUTSIDE RECORDS SUMMARY | 2024-02-15 14:15 | XMS_ITS | Clinical Summary ---
Author Name Unknown Organization [facility] Address [place], [place] [address] Care Team Providers Care Tip Banding Machine Operator Name Role Phone Estephania Vela Primary Care Provider Lizzeth martini Allergies No known active allergies Medications Medication Sig Dispensed Refills Start Date End Date Status clopidogrel (PLAVIX) 75 mg tabletIndications:I nferior myocardial infarction (HC) Take 1 tablet by mouth once daily. 90 tablet 3 09/20/2019 Active rosuvastatin (CRESTOR) 20 mg tabletIndications:I nferior myocardial infarction (HC) Take 1 tablet by mouth at bedtime. 90 tablet 3 09/20/2019 Active glimepiride (AMARYL) 2 mg tablet Take 2 mg by mouth two times daily. Active empagliflozin (Jardiance) 10 mg tablet Take 10 mg by mouth once daily. Active lisinopriL (PRINIVIL; ZESTRIL) 2.5 mg tablet Take 2.5 mg by mouth once daily. Active metoprolol succinate 25 mg CSpX Take 25 mg by mouth once daily. Active methotrexate (RHEUMATREX) 2.5 mg tablet Take 2.5 mg by mouth once weekly. 6 tablets once weekly Active POTASSIUM CITRATE ORAL Take by mouth. Active metFORMIN (GLUCOPHAGE) 500 mg tablet Take 500 mg by mouth two times daily. Active tirzepatide (Mounjaro) 2.5 mg/0.5 mL penIndications:Diab etes mellitus without complication (HC) Inject 0.5 mL (2.5 mg) subcutaneous once weekly. 2 mL 11/17/2023 Active Encounters Date Type Department Care Team Description 11/25/2023 Orders Only [facility] [place] [address] [facility] [address] [place] [address] Shani Powers, HAND PASTER <No scans attached> from Last 3 Months Social History Tobacco [...] 04/19/2021 03/22/2021, 03/01/2021 Influenza for age 50-64 07/10/2024 Care Teams Tip Banding Machine Operator Relationship Specialty Start Date End Date Estephania Vela PCP - General 08/23/19
--- OUTSIDE RECORDS SUMMARY | 2024-02-15 14:15 | XMS_ITS | Clinical Summary ---
Author Name Unknown Organization [place] Address [address] [place] [address] Care Team Providers Care Digital Photographic Printer Name Role Phone [facility]- Primary Care Provider Allergies No [...] daily (before meals) 0 Active nystatin (MYCOSTATIN) 896214 UNIT/GM external cream Apply topically 2 times [...] Comments Blood Pressure 113/68 12/04/2021 11:29 PM SOLAR FIELD SERVICE TECHNICIAN Pulse 64 12/04/2021 11:29 PM SOLAR FIELD SERVICE TECHNICIAN Temperature 36.9 ??C (98.4 ??F) 12/04/2021 8:29 PM CS T Respiratory Rate 18 12/04/2021 8:29 PM SOLAR FIELD SERVICE TECHNICIAN Oxygen Saturation 100% 12/04/2021 11:34 PM SOLAR FIELD SERVICE TECHNICIAN Inhaled Oxygen Concentration - - Weight 113.9 kg (251 lb) 03/05/2021 5:47 AM CDT Height 185.4 cm (6' 1) 03/05/2021 5:47 AM CDT Body Mass Index 33.12 03/05/2021 5:47 AM CDT Plan of Treatment Health Maintenance Due Date Last Done Comments ADVANCE CARE PLANNING 1971 ANNUAL REVIEW OF HM ORDERS 1971 CT COLONOGRAPHY 1971 FIT 1971 FLEX SIG 1971 LIPID 1971 TSH W/FREE T4 REFLEX 1971 YEARLY PREVENTIVE VISIT 1971 sDNA (Cologuard) 1971 COLONOSCOPY 1981 COLORECTAL CANCER SCREENING 1981 HIV SCREENING 1986 HEPATITIS C SCREENING 1989 HEPATITIS B IMMUNIZATION (1 of 3 - 19+ 3-dose series) 1990 LUNG CANCER SCREENING 2021 ZOSTER IMMUNIZATION (1 of 2) 2021 COVID-19 Vaccine (3 - 2022-2 4 season) 2023 03/22/2021, 03/01/2021 INFLUENZA VACCINE (#1) 2023 PHQ-2 (once per calendar year) 2023 GLUCOSE 12/04/2024 12/04/2021, 03/05/2021 DTAP/TDAP/TD IMMUNIZATION (3 - Td or Tdap) [...] this topic Medical Devices Implanted Type Area Substance Abuse Prevention Coordinator Device Identifier Shelf Expiration Date Model / Serial / Lot Stent Ureteral Polaris Ultra [id number] Implanted:Qty: 1 on 03/05/2021 by Lino Cheney MD at [facility] Stent Right: Ureter [employer] 12/07/2023 [id number] / / [id number] Stent Ureteral Polaris Ultra [id number] Implanted:Qty: 1 on 03/05/2021 by Lino Cheney MD at [facility] Stent Left: Ureter [employer] 12/02/2023 [id number] / / [id number] Care Teams Digital Photographic Printer Relationship Specialty Start Date End Date [facility]- [address] [place], [place] [id number] PCP - General 02/26/21
--- OUTSIDE RECORDS SUMMARY | 2024-02-15 14:15 | XMS_ITS | Referral Summary ---
Author Name Unknown Organization [place] Address [address] [place] [address] Care Team Providers Care Baseball Winder Name Role Phone [facility]- Primary Care Provider Allergies No known [...] daily (before meals) 0 Active nystatin (MYCOSTATIN) 771982 UNIT/GM external cream Apply topically 2 times [...] Comments Blood Pressure 113/68 12/04/2021 11:29 PM CLEANER GREASER Pulse 64 12/04/2021 11:29 PM CLEANER GREASER Temperature 36.9 ??C (98.4 ??F) 12/04/2021 8:29 PM CS T Respiratory Rate 18 12/04/2021 8:29 PM CLEANER GREASER Oxygen Saturation 100% 12/04/2021 11:34 PM CLEANER GREASER Inhaled Oxygen Concentration - - Weight 113.9 kg (251 lb) 03/05/2021 5:47 AM CDT Height 185.4 cm (6' 1) 03/05/2021 5:47 AM CDT Body Mass Index 33.12 03/05/2021 5:47 AM CDT Plan of Treatment Not on file Medical Devices Implanted Type Area Hide Washer Device Identifier Shelf Expiration Date Model / Serial / Lot Stent Ureteral Polaris Ultra [id number] Implanted:Qty: 1 on 03/05/2021 by Lino Cheney MD at [facility] Stent Right: Ureter [employer] 12/07/2023 [id number] / / [id number] Stent Ureteral Polaris Ultra [id number] Implanted:Qty: 1 on 03/05/2021 by Lino Cheney MD at [facility] Stent Left: Ureter [employer] 12/02/2023 [id number] / / [id number] Care Teams Baseball Winder Relationship Specialty Start Date End Date [facility]- [address] [place] [address] PCP - General 02/26/21
--- OUTSIDE RECORDS SUMMARY | 2024-02-15 14:15 | XMS_ITS | Encounter Summary ---
Author Name Unknown Organization [facility] Address [address] [place] [address] [place] [address] Care Team Providers Care Rehabilitation Worker Name Role Phone Phillip Sánchez DO Unavailable [phone] Encounter Details Date Type Department Care Team (Latest Contact Info) Description 12/25/2023 Scan HEALTH INFO SRVCS Scanned, Doc Med Group Social History Tobacco Use Types Packs/Day Years Used Date Smoking Tobacco: Former Cigarettes Q uit: 2017 Smokeless Tobacco: Never Alcohol [...] on filedocumented in this encounter Care Teams Rehabilitation Worker Relationship Specialty Start Date End Date Phillip Sánchez DO [address] [place] [address] PCP - HEART & VASCULAR CARE CARDIOVASCULAR DISEASE 06/07/18 documented as of this encounter
--- OUTSIDE RECORDS SUMMARY | 2024-02-15 14:15 | XMS_ITS | Clinical Summary ---
Author Name Unknown Organization [facility] Address [address] [place] [address] [place] [address] Care Team Providers Care New Accounts Banking Representative Name Role Phone Phillip Sánchez Ethan DO Unavailable [phone] Allergies No known active allergies Medications Medication Sig Dispensed Refills Start Date End Date Status metoprolol succinate 50 MG 24 hr tablet Take 1/2 tablet by mouth daily 02/08/2017 Active lisinopril 5 MG tablet Take 1/2 tablet by mouth daily. 02/08/2017 Active nitroglycerin 0.[address] 1 tablet under the tongue every 5 (five) minutes as needed for Chest Pain. Do not take more than 3 tablets in 15 minutes 02/09/2017 Active ticagrelor (BRILINTA) 90 MG tablet Take 1 tablet by mouth 2 (two) times daily. 02/08/2017 Active metFORMIN 500 MG tablet Take 500 mg by mouth 2 (two) times daily with meals. Active amoxicillin-clavulan ate 875-125 MG tabletIndications:Ac franck maxillary sinusitis, recurrence not specified Take 1 tablet (875 mg total) by mouth 2 (two) times daily. 20 tablet 02/02/2019 Active CPAP SUPPLIESIndications: Sleep apnea Please give patient one set of supplies for cpap 1 Device 02/17/2019 Active FREESTYLE LITE test stripIndications:Typ e 2 diabetes mellitus without complication, without long-term current use of insulin ([facility]) TEST TWICE DAILY. 60 each 5 03/28/2019 Active simvastatin 40 MG tabletIndications:Dy slipidemia Take 1 tablet (40 mg total) by mouth nightly at bedtime. 90 tablet 1 04/01/2019 Active glimepiride 2 MG tabletIndications:Di abetes ([facility]) TAKE 2 TABLETS BY MOUTH DAILY 180 tablet 5 05/11/2019 Active METFORMIN 500 MG tabletIndications:Di abetes ([facility]) TAKE 1 TABLET BY MOUTH TWICE DAILY 180 tablet 06/23/2019 Active levothyroxine 50 MCG tabletIndications:Th yroid condition TAKE 1 TABLET(50 MCG) BY MOUTH DAILY 90 tablet 1 09/19/2019 Active Active Problems Problem Noted Date Diagnosed Date Recurrent kidney stones 01/29/2019 Coronary artery disease of n ative artery of [place] heart with stable angina pectoris 11/19/2018 Essential hypertension 11/19/2018 Dyslipidemia 11/19/2018 Type 2 diabetes mellitus wit hout complication, without long-term current use of insulin ([facility]) 11/19/2018 Hypothyroidism 03/16/2015 Sleep apnea 04/19/2014 Resolved Problems Problem Noted Date Diagnosed Date Resolved Date Need for diphtheria-tetanus- pertussis (Tdap) vaccine 11/19/2018 01/23/2019 Acute AZ ([facility]) 02/27/2017 0 01/23/2019 Encounters Date Type Department Care Team Description 12/25/2023 Scan HEALTH INFO SRVCS Scanned, Doc Med Group from Last 3 Months Immunizations Name Administration Dates Next Due Tdap [...] exists Zoster Vaccines (1 of 2) 2021 DTaP, Tdap and Td Vaccines (2 - Td or Tdap) 11/19/2028 11/19/2018 Meningococcal Vaccine Aged Out No patrica chase eligible based on patient's age to complete this topic RSV Immunizations Under 20 Months Aged Out No longer eligible based on patient's age to complete this topic Procedures Procedure Name Priority Date/Time Associated Diagnosis Comments LIPID PANEL Routine 04/01/2019 11:14 AM CDT Dyslipidemia HEMOGLOBIN, GLYCOSYLATED Routine 04/01/2019 11:14 AM CDT Type 2 diabetes mellitus without complication, without long-term current use of insulin ([facility]) from Last 3 Months or Most Recently Relevant to Health Maintenance Results * (ABNORMAL) HEMOGLOBIN, GLYCOSYLATED (04/01/2019 11:14 AM CDT) HGB A1C 6.9(H) 4.2 - 6.3 % 04/01/2019 8:25 PM CDT [facility] ESTIMATED AVG GLUCOSE 151(H) 74 - 106 MG/DL 04/01/2019 8:25 PM CDT [facility] 04/01/2019 11:1 4 AM CDT Porfirio Zaman MD LABORATORY [facility] [address] [place] [address], [id number] * (ABNORMAL) LIPID PANEL (04/01/2019 11:14 AM CDT) CHOLESTEROL 137 MG/DL 04/01/2019 7:44 PM CDT [facility] Comment:DESIRABLE: <200 TRIGLYCERIDES 285 MG/DL 04/01/2019 7:44 PM T [facility] Comment:200-499 HIGH HDL 39(L) >39 MG/DL 04/01/2019 7:44 PM T [facility] LDL (CALCULATED) 41 MG/DL 04/01/20 19 7:44 PM CDT [facility] Comment:<100 OPTIMAL VLDL CALCULATION 57 MG/DL 04/01/20 19 7:44 PM T [facility] Comment:REFERENCE RANGE NOT ESTABLISHED CHOL/HDL RATIO 3.5 04/01/2019 7:44 PM CDT [facility] Comment:REFERENCE RANGE NOT ESTABLISHED LDL/HDL 1.1 04/01/2019 7:44 PM T [facility] Comment:REFERENCE RANGE NOT ESTABLISHED NON HDL CHOLESTEROL 98 MG/DL 04/01/2019 7:44 PM CDT [facility] Comment:REFERENCE RANGE NOT ESTABLISHED 04/01/2019 11:1 4 AM CDT Porfirio Zaman MD LABORATORY [facility] [address] [place] [address], [id number] from Last 3 Months or Most Recently Relevant to Health Maintenance Care Teams New Accounts Banking Representative Relationship Specialty Start Date End Date Phillip Sánchez DO [address] [place] [address] PCP - HEART & VASCULAR CARE CARDIOVASCULAR DISEASE 06/07/18
[2024-02-15 14:42] LABS: Basophils Absolute Auto 0.02 K/uL (0.00-0.30); Basophils Percent Auto 0.3 % (0.0-3.0); Eosinophils Absolute Auto 0.06 K/uL (0.00-0.50); Hematocrit 46.5 % (37.0-53.0); Hemoglobin* 14.4 gm/dL (13.5-17.5); Immature Granulocytes Abs Auto 0.06 K/uL (0.00-0.30); Lymphocytes Absolute Auto 1.82 K/uL (0.90-2.90); Lymphocytes Percent Auto 30.3 % (20-44); Mean Corpuscular HGB Conc 31 gm/dL (32-36); Mean Corpuscular Hemoglobin 30 pg (26-34); Mean Corpuscular Volume 96 fL (80-100); Monocytes Percent Auto 11.6 % (0.0-11.0); Neutrophils Absolute Auto 3.35 K/uL (1.7-7.0); Neutrophils Percent Auto 55.8 % (42.0-72.0); Platelet Count* 330 K/uL (140-440); RDW Coefficient of Variation % 14.4 % (11.5-15.5); Red Blood Count 4.87 m/uL (4.30-5.90); White Blood Count* 6.01 K/uL (4.50-11.00)
[2024-02-15 14:53] LABS: Slide Review Reflex No
[2024-02-16 10:03] LABS: Testosterone, Adult Male 265 ng/dL (300-890)
== END 2024-02-15 14:13 | disposition home or self-care (01) ==
LOC: NPINS 14:12
PROVIDERS: PCP Physician Assistant Medical; Visit Provider Registered Nurse
DX: E11.9 Type 2 diabetes mellitus without complications (principal); E29.1 Testicular hypofunction
CPT/HCPCS: 84403; 85025

== ENCOUNTER 2024-05-10 22:16 | Outpatient (RCR) | payer BC, SELFPAY ==
[2024-05-10 23:05] LABS: Hematocrit 50.6 % (37.0-53.0); Hemoglobin* 15.7 gm/dL (13.5-17.5); Immature Granulocytes Abs Auto 0.04 K/uL (0.00-0.30); Immature Granulocytes Pct Auto 0.5 %; Lymphocytes Absolute Auto 1.99 K/uL (0.90-2.90); Mean Corpuscular HGB Conc 31 gm/dL (32-36); Mean Corpuscular Hemoglobin 30 pg (26-34); Mean Corpuscular Volume 97 fL (80-100); RDW Coefficient of Variation % 14.5 % (11.5-15.5); Red Blood Count 5.23 m/uL (4.30-5.90); White Blood Count* 8.10 K/uL (4.50-11.00)
[2024-05-10 23:06] LABS: Chloride* 106 mmol/L (96-114)
[2024-05-10 23:07] LABS: Potassium* 4.5 mmol/L (3.6-5.1); Sodium* 139 mmol/L (135-149)
[2024-05-10 23:09] LABS: Anion Gap 10 mEq/L (7-15); Carbon Dioxide* 23 mmol/L (20-32); Creatinine* 1.1 mg/dL (0.5-1.5); Estimated Glomerular Filt Rate 81 ml/min
[2024-05-10 23:10] LABS: Blood Urea Nitrogen* 13 mg/dL (7-30); Calcium* 9.6 mg/dL (8.4-10.6); Glucose* 111 mg/dL (60-115); Slide Review Reflex No
[2024-06-29 14:38] LABS: Hematocrit 50.2 % (37.0-53.0); Hemoglobin* 15.5 gm/dL (13.5-17.5); Immature Granulocytes Abs Auto 0.02 K/uL (0.00-0.30); Immature Granulocytes Pct Auto 0.3 %; Lymphocytes Absolute Auto 1.76 K/uL (0.90-2.90); Mean Corpuscular HGB Conc 31 gm/dL (32-36); Mean Corpuscular Hemoglobin 30 pg (26-34); Mean Corpuscular Volume 95 fL (80-100); RDW Coefficient of Variation % 14.3 % (11.5-15.5); Red Blood Count 5.26 m/uL (4.30-5.90); White Blood Count* 7.99 K/uL (4.50-11.00)
[2024-06-29 14:41] LABS: Slide Review Reflex No
[2024-06-29 14:50] LABS: Chloride* 106 mmol/L (96-114); Potassium* 4.4 mmol/L (3.6-5.1); Sodium* 139 mmol/L (135-149)
[2024-06-29 14:52] LABS: Creatinine* 1.2 mg/dL (0.5-1.5); Estimated Glomerular Filt Rate 73 ml/min
[2024-06-29 14:53] LABS: Anion Gap 10 mEq/L (7-15); Blood Urea Nitrogen* 15 mg/dL (7-30); Calcium* 9.6 mg/dL (8.4-10.6); Carbon Dioxide* 23 mmol/L (20-32); Glucose* 116 mg/dL (60-115)
== END 2025-05-09 11:18 | disposition home or self-care (01) ==
LOC: NPINS 22:16
PROVIDERS: PCP Physician Assistant Medical; Visit Provider Dermatology
DX: L40.0 Psoriasis vulgaris (principal)
CPT/HCPCS: 80048; 85025

== ENCOUNTER 2024-05-16 13:39 | Outpatient (REF) | payer BC, SELFPAY ==
--- OUTSIDE RECORDS SUMMARY | 2024-05-16 13:42 | XMS_ITS | Clinical Summary ---
Author Organization [facility] Address [place], [place] [address] Care Team Providers Care Septic Tank Service Technician Name Role Phone Estephania Vela Primary Care [...] subcutaneous once weekly. 2 mL 11/17/2023 Active Social History Tobacco Use Types Packs/Day [...] Influenza for age 50-64 07/10/2024 Care Teams Septic Tank Service Technician Relationship Specialty Start Date End Date Estephania Vela PCP - General 08/23/19
--- OUTSIDE RECORDS SUMMARY | 2024-05-16 13:42 | XMS_ITS | Referral Summary ---
Author Organization [place] Address [address] [place] [address] Care Team Providers Care Stitch Rubber Name Role Phone [facility]- Primary Care Provider Allergies No known active allergies Medications Medication Sig Dispensed Refills Start Date End Date Status terbinafine (LAMISIL) 250 MG tablet Take 250 mg by mouth daily Active tamsulosin (FLOMAX) 0.4 MG capsule Take 0.4 mg by mouth daily Active levothyroxine (SYNTHROID/LEVOTHRO ID) 25 MCG tablet Take 12.5 mcg by mouth daily Active buPROPion (WELLBUTRIN XL) 150 MG 24 hr tablet Take 150 mg by mouth every morning Active SITagliptin-metFORM IN HCl (JANUMET XR PO) Take 1 tablet by mouth 2 times daily Active metoprolol succinate ER (TOPROL-XL) 25 MG 24 hr tablet Take 25 mg by mouth daily Active rosuvastatin (CRESTOR) 20 MG tablet Take 20 mg by mouth daily Active lisinopril (ZESTRIL) 2.5 MG tablet Take 2.5 mg by mouth daily Active glimepiride (AMARYL) 2 MG tablet Take 2 mg by mouth 2 times daily (before meals) Active nystatin (MYCOSTATIN) 937561 UNIT/GM external cream Apply topically 2 times daily Active multivitamin w/minerals (MULTI-VITAMIN) tablet Take 1 tablet by mouth daily Active ketoconazole (NIZORAL) 2 % external cream Apply topically 2 times daily Active triamcinolone (KENALOG) 0.1 % external ointment Apply topically 2 times daily Active aspirin (ASA) 81 MG chewable tablet Take 81 mg by mouth daily Active HYDROcodone-acetami nophen (NORCO) 5-325 MG tabletIndications:B ilateral kidney stones Take 1-2 tablets by mouth every 6 hours as needed for moderate to severe pain 15 tablet 03/05/2021 Active phenazopyridine (PYRIDIUM) 200 MG tabletIndications:B ilateral kidney stones Take 1 tablet (200 mg) by mouth 3 times daily as needed for irritation 9 tablet 03/05/2021 Active Social History Tobacco Use Types [...] Comments Blood Pressure 113/68 12/04/2021 11:29 PM DIE BARBER Pulse 64 12/04/2021 11:29 PM DIE BARBER Temperature 36.9 ??C (98.4 ??F) 12/04/2021 8:29 PM CS T Respiratory Rate 18 12/04/2021 8:29 PM DIE BARBER Oxygen Saturation 100% 12/04/2021 11:34 PM DIE BARBER Inhaled Oxygen Concentration - - Weight 113.9 kg (251 lb) 03/05/2021 5:47 AM CDT Height 185.4 cm (6' 1) 03/05/2021 5:47 AM CDT Body Mass Index 33.12 03/05/2021 5:47 AM CDT Plan of Treatment Not on file Medical Devices Implanted Type Area Superintendent Operations Division Device Identifier Shelf Expiration Date Model / Serial / Lot Stent Ureteral Polaris Ultra [id number] Implanted:Qty: 1 on 03/05/2021 by Lino Cheney MD at [facility] Stent Right: Ureter [employer] 12/07/2023 [id number] Stent Ureteral Polaris Ultra [id number] Implanted:Qty: 1 on 03/05/2021 by Lino Cheney MD at [facility] Stent Left: Ureter [employer] 12/02/2023 [id number] Procedures Procedure Name Priority Date/Time Associated Diagnosis Comments COMPREHENSIVE METABOLIC PANEL STAT 12/04/2021 8:36 PM DIE BARBER from Last 3 Months or Most Recently Relevant to Health Maintenance Results * (ABNORMAL) Comprehensive metabolic panel (12/04/2021 8:36 PM DIE BARBER) Sodium 141 133 - 144 mmol/L 12/04/2021 9:04 PM [facility] Potassium 4.3 3.4 - 5.3 mmol/L 12/04/2021 9:04 PM [facility] Chloride 111(H) 94 - 109 mmol/L 12/04/2021 9:04 PM [facility] Carbon Dioxide (CO2) 25 20 - 32 mmol/L 12/04/2021 9:04 PM [facility] Anion Gap 5 3 - 14 mmol/L 12/04/2021 9:04 PM [facility] Urea Nitrogen 18 7 - 30 mg/dL 12/04/2021 9:04 PM [facility] Creatinine 1.11 0.66 - 1.25 mg/dL 12/04/2021 9:04 PM [facility] Calcium 9.0 8.5 - 10.1 mg/dL 12/04/2021 9:04 PM [facility] Glucose 103(H) 70 - 99 mg/dL 12/04/2021 9:04 PM [facility] Alkaline Phosphatase 115 40 - 150 U/L 12/04/2021 9:04 PM [facility] AST 24 0 - 45 U/L 12/04/2021 9:04 PM [facility] ALT 37 0 - 70 U/L 12/04/2021 9:04 PM [facility] Protein Total 7.7 6.8 - 8.8 g/dL 12/04/2021 9:04 PM [facility] Albumin 4.0 3.4 - 5.0 g/dL 12/04/2021 9:04 PM [facility] Bilirubin Total 0.4 0.2 - 1.3 mg/dL 12/04/2021 9:04 PM [facility] GFR Estimate 81 >60 mL/min/1.7 3m2 12/04/2021 9:04 PM [facility] Comment:Effective October 102020 eGFRcr in adults is calculated using the 2020 CKD-EPI creatinine equation which includes age and gender (Radio Technician et al., NEJM, DOI: 10.1056/KUZLsz9465059) Blood STRUCTURE OF RIGHT UPPER LIMB / Unknown Venipuncture / Unknown 12/04/2021 8:36 PM DIE BARBER 12/04/2021 8:44 PM DIE BARBER Ishmael Kathleen MD LAB - BLOOD ORDERABL ES [facility] [address] [facility] (1st floor, no room number) [place] [address], [facility] [phone] from Last 3 Months or Most Recently Relevant to Health Maintenance Care Teams Stitch Rubber Relationship Specialty Start Date End Date [facility]- [address] [place] [address] PCP - General 02/26/21
--- OUTSIDE RECORDS SUMMARY | 2024-05-16 13:42 | XMS_ITS | Encounter Summary ---
Author Organization [facility] Address [address] [place] [address] [place] [address] Care Team Providers Care Liaison Planner Name Role Phone Phillip Sánchez DO Unavailable [phone] Porfirio Zaman MD Primary Care Provider Encounter Details Date Type Department Care Team (Late st Contact Info) Description 01/23/2018 Abstract [facility] CONVERSION [address] [place] [address] , Generic MD Abel Social [...] on filedocumented in this encounter Care Teams Liaison Planner Relationship Specialty Start Date End Date Phillip Sánchez DO [address] [place] [address] PCP - HEART & VASCULAR CARE CARDIOVASCULAR DISEASE 06/07/18 Porfirio Zaman MD [address] [place] [address] PCP - General FAMILY PRACTICE 06/07/18 12/23/23 documented as of this encounter
--- OUTSIDE RECORDS SUMMARY | 2024-05-16 13:42 | XMS_ITS | Clinical Summary ---
Author Organization [facility] Address [address] [place] [address] Care Team Providers Care Supreme Court Judge Name Role Phone [facility]- Primary [...] times daily (before meals) Active nystatin (MYCOSTATIN) 774520 UNIT/GM external cream Apply topically 2 times [...] Comments Blood Pressure 113/68 12/04/2021 11:29 PM ACTIVITIES ASSISTANT Pulse 64 12/04/2021 11:29 PM ACTIVITIES ASSISTANT Temperature 36.9 ??C (98.4 ??F) 12/04/2021 8:29 PM CS T Respiratory Rate 18 12/04/2021 8:29 PM ACTIVITIES ASSISTANT Oxygen Saturation 100% 12/04/2021 11:34 PM ACTIVITIES ASSISTANT Inhaled Oxygen Concentration - - Weight 113.9 [...] - 2022-2 4 season) 2023 03/22/2021, 03/01/2021 PHQ-2 (once per calendar year) 2023 INFLUENZA VACCINE (#1) 2024 GLUCOSE 12/04/2024 12/04/2021, 03/05/2021 DTAP/TDAP/TD IMMUNIZATION (3 [...] this topic Medical Devices Implanted Type Area Payroll Specialist Device Identifier Shelf Expiration Date Model / Serial / Lot Stent Ureteral Polaris Ultra [id number] Implanted:Qty: 1 on 03/05/2021 by Lino Cheney MD at [facility] Stent Right: Ureter [employer] 12/07/2023 [id number] / / [id number] Stent Ureteral Polaris Ultra [id number] Implanted:Qty: 1 on 03/05/2021 by Lino Cheney MD at [facility] Stent Left: Ureter [employer] 12/02/2023 [id number] / / [id number] Procedures Procedure Name Priority Date/Time Associated Diagnosis Comments COMPREHENSIVE METABOLIC PANEL STAT 12/04/2021 8:36 PM ACTIVITIES ASSISTANT from Last 3 Months or Most Recently Relevant to Health Maintenance Results * (ABNORMAL) Comprehensive metabolic panel (12/04/2021 8:36 PM ACTIVITIES ASSISTANT) Sodium 141 133 - 144 mmol/L 12/04/2021 9:04 PM [facility] Potassium 4.3 3.4 - 5.3 mmol/L 12/04/2021 9:04 PM [facility] Chloride 111(H) 94 - 109 mmol/L 12/04/2021 9:04 PM [facility] Carbon Dioxide (CO2) 25 20 - 32 mmol/L 12/04/2021 9:04 PM [facility] Anion Gap 5 3 - 14 mmol/L 12/04/2021 9:04 PM [facility] Urea Nitrogen 18 7 - 30 mg/dL 12/04/2021 9:04 PM [facility] Creatinine 1.11 0.66 - 1.25 mg/dL 12/04/2021 9:04 PM [facility] Calcium 9.0 8.5 - 10.1 mg/dL 12/04/2021 9:04 PM [facility] Glucose 103(H) 70 - 99 mg/dL 12/04/2021 9:04 PM [facility] Alkaline Phosphatase 115 40 - 150 U/L 12/04/2021 9:04 PM [facility] AST 24 0 - 45 U/L 12/04/2021 9:04 PM [facility] ALT 37 0 - 70 U/L 12/04/2021 9:04 PM [facility] Protein Total 7.7 6.8 - 8.8 g/dL 12/04/2021 9:04 PM [facility] Albumin 4.0 3.4 - 5.0 g/dL 12/04/2021 9:04 PM [facility] Bilirubin Total 0.4 0.2 - 1.3 mg/dL 12/04/2021 9:04 PM [facility] GFR Estimate 81 >60 mL/min/1.7 3m2 12/04/2021 9:04 PM [facility] Comment:Effective October 102020 eGFRcr in adults is calculated using the 2020 CKD-EPI creatinine equation which includes age and gender (Arnol et al., NEJM, DOI: 10.1056/IYGUdn3975093) Blood STRUCTURE OF RIGHT UPPER LIMB / Unknown Venipuncture / Unknown 12/04/2021 8:36 PM ACTIVITIES ASSISTANT 12/04/2021 8:44 PM [facility] Ishmael Kathleen MD LAB - BLOOD ORDERABL ES LABORATORY [facility] Acute Care Lab [address] Lab (1st floor, no room number) [place] [address], [facility] [phone] from Last 3 Months or Most Recently Relevant to Health Maintenance Care Teams Supreme Court Judge Relationship Specialty Start Date End Date [facility]- [address] [place] [address] PCP - General 02/26/21
--- OUTSIDE RECORDS SUMMARY | 2024-05-16 13:42 | XMS_ITS | Clinical Summary ---
Author Organization [facility] Address [address] [place] [address] [place] [address] Care Team Providers Care Filling Technician Name Role Phone Phillip Sánchez Ethan DO Unavailable [phone] Allergies No known active allergies Medications [...] complication, without long-term current use of insulin ([facility]) TEST TWICE DAILY. 60 each 5 03/28/2019 Active simvastatin 40 MG tabletIndications:Dy slipidemia Take 1 tablet (40 mg total) by mouth nightly at bedtime. 90 tablet 1 04/01/2019 Active glimepiride 2 MG tabletIndications:Di abetes ([facility]) TAKE 2 TABLETS BY MOUTH DAILY 180 tablet 5 05/11/2019 Active METFORMIN 500 MG tabletIndications:Di abetes ([facility]) TAKE 1 TABLET BY MOUTH TWICE DAILY 180 tablet 06/23/2019 Active levothyroxine 50 MCG tabletIndications:Th yroid condition TAKE 1 TABLET(50 MCG) BY MOUTH DAILY 90 tablet 1 09/19/2019 Active Active Problems Problem Noted Date Diagnosed Date Recurrent kidney stones 01/29/2019 Coronary artery disease of n ative artery of [place] heart with stable angina pectoris 11/19/2018 Essential hypertension 11/19/2018 Dyslipidemia 11/19/2018 Type 2 diabetes mellitus wit hout complication, without long-term current use of insulin ([facility]) 11/19/2018 Hypothyroidism 03/16/2015 Sleep apnea 04/19/2014 Resolved Problems Problem Noted Date Diagnosed Date Resolved Date Need for diphtheria-tetanus- pertussis (Tdap) vaccine 11/19/2018 01/23/2019 Acute VT ([facility]) 02/27/2017 0 01/23/2019 Immunizations Name Administration Dates Next Due [...] (10 Years) 1971 Kidney Health Evaluation 1971 Annual Physical 1974 Pneumococcal Vaccine: Pediatrics (0 [...] exists Zoster Vaccines (1 of 2) 2021 COVID-19 Vaccine (1 - 2022- season) 2023 DTaP, Tdap and Td Vaccines (2 [...] complication, without long-term current use of insulin ([facility]) from Last 3 Months or Most Recently Relevant to Health Maintenance Results * (ABNORMAL) HEMOGLOBIN, GLYCOSYLATED (04/01/2019 11:14 AM CDT) HGB A1C 6.9(H) 4.2 - 6.3 % 04/01/2019 8:25 PM CDT [facility] ESTIMATED AVG GLUCOSE 151(H) 74 - 106 MG/DL 04/01/2019 8:25 PM CDT [facility] 04/01/2019 11:1 4 AM CDT Porfirio Zaman MD LABORATORY [facility] [address] [place] [address], [id number] * (ABNORMAL) LIPID PANEL (04/01/2019 11:14 AM CDT) CHOLESTEROL 137 MG/DL 04/01/2019 7:44 PM CDT [facility] Comment:DESIRABLE: <200 TRIGLYCERIDES 285 MG/DL 04/01/2019 7:44 PM CDT [facility] Comment:200-499 HIGH HDL 39(L) >39 MG/DL 04/01/2019 7:44 PM CDT [facility] LDL (CALCULATED) 41 MG/DL 04/01/20 19 7:44 PM CDT [facility] Comment:<100 OPTIMAL VLDL CALCULATION 57 MG/DL 04/01/20 19 7:44 PM CDT [facility] Comment:REFERENCE RANGE NOT ESTABLISHED CHOL/HDL RATIO 3.5 04/01/2019 7:44 PM CDT [facility] Comment:REFERENCE RANGE NOT ESTABLISHED LDL/HDL 1.1 04/01/2019 7:44 PM CDT [facility] Comment:REFERENCE RANGE NOT ESTABLISHED NON HDL CHOLESTEROL 98 MG/DL 04/01/2019 7:44 PM CDT [facility] Comment:REFERENCE RANGE NOT ESTABLISHED 04/01/2019 11:1 4 AM CDT Porfirio Zaman MD LABORATORY [facility] [address] [place] [address], [id number] from Last 3 Months or Most Recently Relevant to Health Maintenance Care Teams Filling Technician Relationship Specialty Start Date End Date Phillip Sánchez DO [address] [place] [phone] PCP - HEART & VASCULAR CARE CARDIOVASCULAR DISEASE 06/07/18
--- OUTSIDE RECORDS SUMMARY | 2024-05-16 13:42 | XMS_ITS | Encounter Summary ---
Author Organization [facility] Address [address] [place] [address] Care Team Providers Care Track Coach Name Role Phone [facility]- Primary Care Provider Encounter Details Date [...] COVID-19? 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
[2024-05-17 15:01] LABS: Testosterone, Adult Male 509 ng/dL (300-890)
== END 2024-05-16 13:40 | disposition home or self-care (01) ==
LOC: NPINS 13:39
PROVIDERS: PCP Physician Assistant Medical; Visit Provider Registered Nurse
DX: R79.89 Other specified abnormal findings of blood chemistry (principal)
CPT/HCPCS: 84403

== ENCOUNTER 2024-06-08 12:38 | Emergency (ER) | payer BC, SELFPAY ==
[2024-06-08 12:44] VITALS: BP 107/70; PULSE 85; RESP 16; TEMP 35.7; O2SAT 98; BMI 28.0
--- NOTE | 2024-06-08 12:50 | ED_ITS ---
HPI - General Adult General Date Seen: 06/08/24 Chief complaint: Laceration/Wound Stated complaint: LT hand laceration Time Seen by Provider: 06/08/24 12:49 History of Present Illness HPI narrative: 53-year-old male with a past medical history of coronary artery disease, psoriasis (on methotrexate), hypertension, hyperlipidemia, hypothyroidism, sleep apnea, who presents to the ER today with a laceration to his left hand. Per EHR, most recent Tdap was 11/09/2016. He was working at home today with an [employer] knife to create a piece of wood for a backing on an [employer] car that he is finishing. He slipped with his Exacto knife and accidentally graded a puncture wound on the dorsum of his left hand on the dorsum of the webspace between the thumb and index finger, a little bit proximal and ulnar to the thumb MCP joint. He had fairly brisk dark red bleedi ng at home he, and knows that he is on Plavix. Fortunately he and his were able to control the bleeding by wrapping the wound and tight dressing and elevating. No other injuries. No numbness or weakness in his thumb. No trouble with range of motion in his knuckle or thumb joints. No pulsatile bleeding. He is on methotrexate for psoriasis but has no history of diabetes or other immunosuppressive. Related Data Home Medications ?Medication ?Instructions ?Recorded ?Confirmed potassium citrate 99 mg capsule cap PO TID 06/12/22 03/27/24 testosterone INJECTION 02/15/24 03/27/24 semaglutide 1 mg/dose (4 mg/3 mL) mg subcut 03/24/24 03/27/24 subcutaneous pen injector ([facility] [employer]) Previous Rx's ?Medication ?Instructions ?Recorded clobetasol 0.05 % scalp solution 1 applic topical QDAY #50 mL 01/27/23 calcipotriene 0.005 % topical cream 1 applic topical QDAY #120 grams 07/09/23 empagliflozin 10 mg tablet 10 mg PO QAM #90 tabs 11/16/23 (Jardiance) glimepiride 2 mg tablet 2 mg PO QDAY #90 tabs 11/16/23 levothyroxine 50 mcg tablet 50 mcg PO QDAY #90 tabs 11/16/23 metformin 1,000 mg tablet 1,000 mg PO BIDWMEAL #180 tabs 11/16/23 metoprolol succinate 25 mg 25 mg PO DAILY #90 tabs 11/16/23 tablet,extended release 24 hr rosuvastatin 20 mg tablet 20 mg PO DAILY #90 tabs 11/16/23 lancets #200 ea 11/30/23 clopidogrel 75 mg tablet (Plavix) 75 mg PO QDAY #90 tabs 12/10/23 blood sugar diagnostic ([facility] 12/21/23 Verio test strips) methotrexate sodium 2.5 mg tablet 15 mg (6 x 2.5 mg) PO QWEEK #72 01/21/24 tabs tirzepatide 5 mg/0.5 mL 5 mg (0.5 mL) subcut QWEEK #6 mL 02/17/24 subcutaneous pen injector (Adrianna) lancets 33 gauge ([facility] ea 02/26/24 Plus Lancet) triamcinolone acetonide 0.1 % 1 applic topical BID #15 grams 03/24/24 topical cream triamcinolone acetonide 0.1 % 1 applic topical BID #15 grams 03/24/24 topical cream fexofenadine 60 mg tablet (Angela 60 mg PO BID #30 tabs 03/27/24 Allergy) prednisone 20 mg tablet See Rx Instructions PO QDAY Cough 03/27/24 #18 tabs Allergies Allergy/AdvReac Type Severity Reaction Status Date / Time No Known Allergies Allergy Unknown Verified 03/27/24 10:14 [facility] Medical History (Updated 06/08/24 @ 13:49 by Raffaele Mercado MD) Poison juliano dermatitis ?L23.7 - Allergic contact dermatitis due to plants, except food (ICD-10) Hx of myocardial infarction (~02/23/23) ?I25.2 - Old myocardial infarction (ICD-10) Neck pain on right side ?M54.2 - Cervicalgia (ICD-10) COVID-19 (~2019) ?U07.1 - COVID-19 (ICD-10) Fatigue ?R53.83 - Other fatigue (ICD-10) On methotrexate therapy ?Z79.631 - senior care (current) use of antimetabolite agent (ICD-10) History of renal calculi ?Z87.442 - Personal history of urinary calculi (ICD-10) Surgical History (Updated 11/16/23 @ 13:21 by Tiana Dean PA-C) History of lithotripsy ?Z98.890 - Other specified postprocedural states (ICD-10) History of coronary artery stent placement (02/2017) ?Z95.5 - Presence of coronary angioplasty implant and graft (ICD-10) History of colonoscopy ?Z98.890 - Other specified postprocedural states (ICD-10) Family History (Updated 11/16/23 @ 13:43 by Tiana Dean PA-C) Sister Alcoholism Mother Breast cancer Father Kidney stone CHF (congestive heart failure) Daughter Kidney stone Brother Cardiovascular disease Social History (Updated 11/16/23 @ 13:46 by Tiana Dean PA-C) Narrative: Former cigarette smoker- quit January 2016; smoked 1 pack per day for 25 years Alcohol- none to very rare alcohol denies recreational drugs. 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 . 1 step son. 3 biological kids. Smoking Status: Never smoker Little interest or pleasure in doing things: not at all Feeling down, depressed, or hopeless: not at all Exam Narrative: Exam Narrative: Constitutional: Appears well-developed and well-nourished. Active. Non-toxic appearing. HENT: Head: Atraumatic. No signs of injury. Nose: No nasal discharge. Mouth/Throat: Mucous membranes are moist. Pharynx is normal. Tonsils symmetric. Uvula midline. Airway patent. Eyes: Conjunctivae normal and EOM are normal. Pupils are equal, round, and reactive to light. Right eye exhibits no discharge. Left eye exhibits no discharge. No icterus. Neck: Normal range of motion. Neck supple. No adenopathy. No stridor. Cardiovascular: Normal rate and regular rhythm. No murmur heard. No murmurs, rubs, or gallops. Brisk capillary refill Pulmonary/Chest: Effort normal. No stridor. No respiratory distress. No wheezes.No rhonchi. No rales. No retractions. Abdominal: Soft. Bowel sounds are normal. No distension. No mass. There is no tenderness. There is no rebound and no guarding. Musculoskeletal: 1 cm laceration on the dorsum of the left thumb on the webspace between the thumb and index finger a little bit proximal and to the ulnar side of the thumb. No active bleeding. He has intact flexion and extension of the MCP, PIP Glo of the thumb. Intact ulnar and radial digital nerve function of the thumb. Normal distal cap refill. No evidence for any foreign body. No evidence for any tendon or joint or vascular injury. Other than laceration on the thumb, normal- Normal range of motion. No edema. No tenderness. No deformity. Neurological: Alert. Normal strength. No cranial nerve deficit or sensory deficit. Coordination normal. GCS eye subscore is 4. GCS verbal subscore is 5. GCS motor subscore is 6. Intact radial, median, ulnar, digital nerve motor and sensory function. Skin: Skin is warm. No rash noted. Const: Vital Signs, click to edit/add: Vital Signs - 24 hr 06/08/24 12:44 Temperature 96.3 F L Pulse Rate [Pulse Oximeter] 85 Respiratory Rate 16 Blood Pressure [Ri t Upper Arm] 107/70 Pulse Oximetry 98 Oxygen Delivery Me thod Room Air Course Vital Signs Vital signs: Initial Vital Signs Temperature 96.3 F L 06/08/24 12:44 Temperature Source Temporal Artery Scan 06/08/24 12:44 Pulse Rate 85 06/08/24 12:44 Respiratory Rate 16 06/08/24 12:44 Blood Pressure 107/70 06/08/24 12:44 Blood Pressure Mean 82 06/08/24 12:44 Blood Pressure Position Sitting 06/08/24 12:44 Pulse Oximetry 98 06/08/24 12:44 Oxygen Delivery Method Room Air 06/08/24 12:44 Vital Signs Temperature 96.3 F L 06/08/24 12:44 Pulse Rate 85 06/08/24 12:44 Respiratory Rate 16 06/08/24 12:44 Blood Pressure 107/70 06/08/24 12:44 Pulse Oximetry 98 06/08/24 12:44 Oxygen Delivery Method Room Air 06/08/24 12:44 Temperature 96.3 F L 06/08/24 12:44 Pulse Rate 85 06/08/24 12:44 Respiratory Rate 16 06/08/24 12:44 Blood Pressure 107/70 06/08/24 12:44 Pulse Oximetry 98 06/08/24 12:44 Oxygen Delivery Method Room Air 06/08/24 12:44 Medical Decision Making [facility] Narrative Medical decision making narrative: Findings and exam are consistent with an uncomplicated laceration which was repaired as noted above. There is no evidence at this time to suggest any associated fracture or foreign body. There is no evidence to suggest tendon or arterial injury and patient is neurologically in tact. The patient is to follow up for suture removal as instructed in 10 days. Indications to seek urgent reeva luation and signs of infection (including but not limited to increasing pain, redness, swelling, fevers, and drainage) were reviewed. Tetanus 7 years account. Since this is a clean, not tetanus prone wound, would be adequate for now. This is a clean and non-contaminated wound so although he is on methotrexate, prophylactic antibiotics are not indicated. An understanding of the discharge instructions and need for follow up were verbally confirmed. Discharge Plan Discharge Clinical Impression: Laceration of left thumb Patient Disposition: Home, Self-Care Condition: Stable Instructions: Finger Laceration (ED) Additional Instructions: As we discussed, please come back to the ER or see her doctor right away if you have any troubles such as signs of infection) redness, swelling, pus draining from the wound). To care for the wound, wash gently with warm water once per day. After it is clean dab it dry, reapply antibiotic ointment, and keep the wound and sutures covered with a dressing. Follow-up with your doctor to have the wound checked in sutures removed in 10 days. Prescriptions: No Action potassium citrate 99 mg capsule PO TID metformin 1,000 mg tablet 1,000 mg PO BIDWMEAL Qty: 180 3RF Jardiance 10 mg tablet 10 mg PO QAM Qty: 90 3RF glimepiride 2 mg tablet 2 mg PO QDAY Qty: 90 3RF Rx Instructions: once daily metoprolol succinate 25 mg tablet extended release 24 hr 25 mg PO DAILY Qty: 90 3RF rosuvastatin 20 mg tablet 20 mg PO DAILY Qty: 90 3RF levothyroxine 50 mcg tablet 50 mcg PO QDAY Qty: 90 3RF Rx Instructions: stop 25 testosterone INJECTION Patient Comments: Patient unsure of the name of the medication and the dose. clobetasol 0.05 % solution 1 applic topical QDAY Qty: 50 1RF methotrexate sodium 2.5 mg tablet 15 mg PO QWEEK Qty: 72 0RF Ozempic 1 mg/dose (4 mg/3 mL) pen injector subcut triamcinolone acetonide 0.1 % cream 1 applic topical BID Qty: 15 0RF triamcinolone acetonide 0.1 % cream 1 applic topical BID Qty: 15 0RF prednisone 20 mg tablet See Rx Instructions PO QDAY Qty: 18 0RF Rx Instructions: 3 p.o. as single dose days 1-3, 2 p.o. as single dose days 4-6, 1 p.o. days 7-9, then discontinue. fexofenadine [Angela Allergy] 60 mg tablet 60 mg PO BID Qty: 30 0RF calcipotriene 0.005 % cream 1 applic topical QDAY Qty: 120 1RF Rx Instructions: rub in gently and completely (DME) lancets Misc See Rx Instructions .Route Qty: 200 0RF Rx Instructions: use to test blood sugar twice daily clopidogrel [Plavix] 75 mg tablet 75 mg PO QDAY Qty: 90 3RF (DME) OneTouch Verio test strips Strip See Rx Instructions .Route Qty: 200 3RF Rx Instructions: 1 test twice a daily Mounjaro 5 mg/0.5 mL pen injector 5 mg subcut QWEEK Qty: 6 1RF Rx Instructions: once weekly (DME) lancets [OneTouch Delica Plus Lancet] 33 gauge misc See Rx Instructions .ROUTE .COMPLEX Qty: 200 1RF Dose Instruction: USE TO TEST BLOOD SUGAR TWICE A DAY Rx Instructions: USE TO TEST BLOOD SUGAR TWICE A DAY Follow Up/Referrals: Tiana Dean PA-C [Primary Care Provider] - Stand Alone Forms: [facility] Info Instructions Procedures Laceration Left thumb dorsal 1 cm laceration: Verification/time out: correct patient, correct site and correct procedure Site: hand Side (If applicable): left Size (cm): 1 Description: linear Depth: simple, single layer Local Anesthetic: lidocaine 1% and with epi Amount of anesthesia used (mL): 3 Pre-repair: wound explored, irrigated extensively and deep structures intact Skin layer closed with: nylon Size (cm): 5-0 Number of sutures: 3 Technique: simple, interrupted
--- OUTSIDE RECORDS SUMMARY | 2024-06-08 13:33 | XMS_ITS | Clinical Summary ---
Author Organization [email or web address] [facility] Address [place], [place] [address] Care Team Providers Care Turpentine Distiller Name Role Phone Estephania Vela Primary Care [...] Influenza for age 50-64 07/10/2024 Care Teams Turpentine Distiller Relationship Specialty Start Date End Date Estephania Vela PCP - General 08/23/19
--- OUTSIDE RECORDS SUMMARY | 2024-06-08 13:34 | XMS_ITS | Data Portability ---
Author Organization [facility] Address [address] [place] [address] Care Team Providers Care Communications Project Manager Name Role Phone [facility] Primary Care Provider [phone] Assessment Encounter Date Assessment Date Assessment LastModified by Organization Details LastModified Time 03/14/2021 03/14/2021 50 year old male with [...] with associated right hydronephrosis. [email or web address] Not available 12/09/2022 10:09:59 11/30/2023 11/30/2023 53 year old male with bilateral urolithiasis including bilateral ureteral calculi with associated right hydronephrosis. [facility] Not available 11/30/2023 08:58:20 Plan of Treatment Reminders Order Date Submit Date Provider Last Modified By Organization Details Last Modified Time Details Appointments None recorded . Lab kidney stone, 24-hour urine panel 2020 021 [email or web address], [address], [place], [address], 1 15:07:16 BMP, serum or plasma 2020 [email or web address], [address] [place], [address], 09:48:09 BMP, serum or plasma 2021 022 [facility], [address] [place], [address], 2 08:31:55 Referral None recorded . Procedures None recorded . Surgeries None recorded . Imaging US, renal - Pt needs in late Dec 2021, please call patient to schedule , thanks. 2020 021 [facility], [address] [place], [address], 13:36:56 US, renal - Pt needs in late Dec 2021, please call patient to schedule , thanks. 2021 022 [facility], [address] [place], [address], 2 15:15:27 US, renal 2022 023 [facility] Radiology Department, [address] [place], [address], 3 10:04:10 US, renal 2023 025 [email or web address] [facility] Radiology Department, [address] [place], [address], 4 15:39:47 Medication Orders potassiu m citrate ER 10 mEq (1,080 mg) tablet,e xtended release 2020 021 [facility][id number], [address], [place], [address], 1 14:57:31 potassiu m citrate ER 10 mEq (1,080 mg) tablet,e xtended release [address]/[facility]armacy #024, [address], [place], [address], 2 16:41:17 potassiu m citrate ER 10 mEq (1,080 mg) tablet,e xtended release 2022 023 [facility], [place], [address], 3 20:16:01 potassiu m citrate ER 10 mEq (1,080 mg) tablet,e xtended release 2023 024 [facility], [address] [place] [address], [address], 4 16:36:07 Patient TargetsNo targets recorded. Patient InstructionsNo instructions recorded. Reason for Referral None Reported. Results Created Date Observation Date Name Description Value Unit Range Abnormal Flag LastModifiedBy Organization Detail LastModifiedTime 02/26/2002/22/2021 CT, abdom en + pelvi s, w/o contr ast No observ ation record ed. [facility] [address], [place], [address], 03/14/2021 11:24:01 04/02/20 21 04/01/2021 CT, abdom en + pelvi s, w/o contr ast No observ ation record ed. [email or web address] [facility] [address], [place], [address], 04/03/2021 08:17:34 09/24/20 21 09/23/2021 US, renal No observ ation record ed. [email or web address] Radiology Department [address] [place], [address], 07/02/2022 16:41:14 12/17/19 22 12/16/2021 US, renal No observ ation record ed. [email or web address] Radiology Department [address] [place], [address], 07/02/2022 16:41:14 12/01/19 23 12/01/2022 US, renal No observ ation record ed. [email or web address] Radiology Department [address] [place], [address], 12/10/2022 13:16:57 11/23/19 24 11/18/2023 US, renal No observ ation record ed. [address] Radiology Department [address] [place], [address], 11/30/2023 16:34:06 Result Notes None recorded. Procedures Surgical History Date Name Laterality Status Provider Name and Address Organization Details Recorded Time 1 Cystoscopy with foreign body/stent removal completed Parvez Brunner MD [address] [facility],[address], [place], [address], [place] [facility] 03/14/2021 11:25:44 Bladder Scan completed Savita chin [facility] 01/23/2021 16:01:51 placement of stent in pulmonary artery completed Savita chin [facility] 01/23/2021 15:29:56 Imaging Results Imaging Date Name Status LastModified by [facility] Details LastModified Time 02/22/2021 CT, abdomen + pelvis, w/o contrast [place] [id number] [facility] [address], [place], [address], 03/14/2021 11:24:01 04/01/2021 CT, abdomen + pelvis, w/o contrast completed [facility] [address] [facility], [place], [address], 04/03/2021 08:17:34 09/23/2021 US, renal completed [address] Radiology Department [address] [place], [address], 07/02/2022 16:41:14 12/16/2021 US, renal completed [address] Radiology Department [address] [place], [address], 07/02/2022 16:41:14 12/01/2022 US, renal completed [address] Radiology Department [address] [place], [address], 12/10/2022 13:16:57 11/18/2023 US, renal completed [address] Radiology Department [address] [place], [address], 11/30/2023 16:34:06 Procedure Notes None recorded. Medical [...] 3 tablets every day by oral route. active Not Available Not Available No t Available metformin 1,000 mg tablet active Not Available [...] Available Not Available OneTouch Delica Plus Lancet 33 gauge active Not Available Not Available Not Available [...] completed Not Available Not Available Not Available Mounjaro 2.5 mg/0.5 mL subcutaneou s pen injector 2.5 MG (0.5 ML) SUBCUTANE OUSLY EVERY WEEK FOR 4 WEEKS ONCE WEEKLY FOR DIABETES active Not Available Not Available No t Available Vitals Date Recorded Body height Body mass index (BMI) Body weight Provider Name and Address Organization Details Last Updated DateTime 07/02/2022 187.96 cm 30.8 kg/m2 266234.17 g Mack Schultz [facility] 07/02/2022 14:42:19 Date Recorded Body height Body mass index (BMI) Body weight Provider Name and Address Organization Details Last Updated DateTime 12/10/2022 187.96 cm 30.8 kg/m2 133391.17 g Karina Pandey [facility] 12/10/2022 12:18:12 Date Recorded Body height Body mass index (BMI) Body weight Provider Name and Address Organization Details Last Updated DateTime 11/30/2023 187.96 cm 29.5 kg/m2 204589.25 g Karina Pandey [facility] 11/30/2023 15:43:35 Date Recorded Body height Body mass index (BMI) Body weight Provider Name and Address Organization Details Last Updated DateTime 03/14/2021 187.96 cm 32.1 kg/m2 276366.09 g Freddie Lyon [facility] 03/14/2021 10:25:32 Date Recorded Body height Body mass index (BMI) Body weight Provider Name and Address Organization Details Last Updated DateTime 06/11/2021 187.96 cm 32.1 kg/m2 393329.09 g Alem Suarez [facility] 06/11/2021 14:10:20 Social History Question Answer Notes LastModified by Organizat ion Details LastModified Time Tobacco Smoking Status Former Smoker Savita Vladimir chin [facility] 01/23/2021 15:29:20 What Is Your Level [...] Nicotine? No Information not available 06/11/2021 Sex: Unknown Functional Status None recorded. Mental Status None recorded. Family History Relationship Description Onset Age of this Age Resolved Age Notes Mother Family history of br east cancer Medical History Condition Response Diabetes Y Other High Blood Pressure Y Kidney Stones Y High Cholesterol Y Heart Disease Y Immunizations Vaccine Type Date Status Provider Name and Address Organization Details Recorded Time COVID-19, mRNA, LNP-S, PF, 30 mcg/0.3 mL dose 03/01/2021 completed Karina Stromquist null, [facility] 12/10/2022 12:18:25 COVID-19, mRNA, LNP-S, PF, 30 mcg/0.3 mL dose 03/22/2021 completed Karina Katherin null, [facility] 12/10/2022 12:18:25 pneumococcal polysaccharide PPV23 03/19/2022 completed Karina Pandey null, [facility] 12/10/2022 12:18:25 Tdap 11/09/2016 completed Kristin Hilario null, [facility] 09/10/2023 15:47:52 Past Encounters Encounter ID Performer Location Encounter Start Date Encounter Closed Date Diagnosis/Indication Diagnosis SNOMED-CT Code [id number] RODOLFO Blanca [facility] [address] [place] [address] 01/23/2021 15:22:01 01/25/2021 11:59:59 Kidney stone [id number] MD ISABELA [facility] [address] [place] [address] 02/22/2021 11:05:52 02/25/2021 12:15:52 Kidney stone [id number] Hydronephrosis [id number] Parvez Brunner MD [facility] [address] [place] [address] 03/14/2021 10:18:02 03/15/2021 12:19:35 Kidney stone [id number] Hydronephrosis [id number] MD ISABELA [facility] [address] [place] [address] 06/11/2021 14:09:34 06/12/2021 16:13:16 Kidney stone [id number] MD ISABELA [facility] [address] [place] [address] 07/02/2022 14:37:32 07/04/2022 11:21:54 Kidney stone [id number] MD ISABELA [facility] [address] [place] [address] 12/10/2022 12:01:08 12/15/2022 11:46:51 Kidney stone [id number] Parvez Brunner MD [facility] [address] [facility] [address] 11/30/2023 15:15:43 12/02/2023 15:39:46 Kidney stone [id number] Health Concerns Section Related Observation LastModified by Organization Detai ls LastModified Time None Recorded Concern Status LastModified by Organization Details LastModified Time None Recorded Advance Directives Directive None Recorded Payers Encounter Date Sequence Insurance Name Policy Number Policy Painting Covered Member ID Painting Member ID Guarantor Name 03/14/2021 1 [place] [id number] Lino Orozco [id number] Lino Orozco 06/11/2021 1 [place] [id number] Lino Orozco [id number] Lino Orozco 07/02/2022 1 [place] [id number] Lino Orozco [id number] Lino Orozco 12/10/2022 1 [place] Lino Orozco [id number] Lino Orozco 11/30/2023 1 [place] Lino Orozco [id number] Lino Orozco Notes Date Note Type Note Provider Name and Address Organization Details Recorded Time 03/14/2021 text/html HPI Notes: Lino is 50 [...] kidney stones.He recently moved from out of [facility]. He has been seen by urologist in [place]. PVR 27 mL UA >1000 glucose (pt [...] stents to be removed. Parvez Brunner MD [address] [place] [address],[address], [place], [address], [facility] 03/14/2021 11:27:57 06/11/2021 text/html HPI [...] kidney stones.[place]. He has been seen by urologist in [place]. PVR 27 mL UA >1000 glucose (pt is on Janumet which causes glucosuria), trace blood, trace ketone 02/22/2021 [place]: Here for follow up right flank pain [...] and coordinate their care. Parvez Brunner MD [address] [place] [address],[address], [place], [address], [facility] 06/11/2021 14:58:09 07/02/2022 text/html HPI Notes: [...] kidney stones.He recently moved from out of [facility]. He has been seen by urologist in [place]. PVR 27 mL UA >1000 glucose (pt [...] recent stone episodes. Parvez Brunner MD [address] [facility] [address], [place], [address], [facility] 07/02/2022 16:43:00 12/10/2022 text/html HPI [...] kidney stones.He recently moved from out of [facility]. He has been seen by urologist in [place]. PVR 27 mL UA >1000 glucose (pt [...] Bilateral simple renal cysts. Parvez Brunner MD [address], [place], [address], [facility] 12/10/2022 13:19:09 11/30/2023 text/html HPI Notes: [...] kidney stones.He recently moved from out of [facility]. He has been seen by urologist in [place]. PVR 27 mL UA >1000 glucose (pt [...] other pathology visualized. Parvez Brunner MD [address] [facility] [address], [place], [address], [place] [facility] 11/30/2023 16:36:37
--- OUTSIDE RECORDS SUMMARY | 2024-06-08 13:34 | XMS_ITS | Encounter Summary ---
Author Organization [facility] Address [address] [place] [address] [place] [address] Care Team Providers Care Paint Crew Supervisor Name Role Phone Phillip Sánchez DO Unavailable [phone] Porfirio Zaman MD Primary Care Provider [phone] Encounter Details Date Type Department Care Team (Late st Contact Info) Description 01/23/2018 Abstract [facility] CONVERSION [address] [place] [address] , Generic MD Abel Social [...] on filedocumented in this encounter Care Teams Paint Crew Supervisor Relationship Specialty Start Date End Date Phillip Sánchez DO [address] [place] [address] PCP - HEART & VASCULAR CARE CARDIOVASCULAR DISEASE 06/07/18 Porfirio Zaman MD [address] [place] [address] PCP - General FAMILY PRACTICE 06/07/18 12/23/23 documented as of this encounter
--- OUTSIDE RECORDS SUMMARY | 2024-06-08 13:34 | XMS_ITS | Clinical Summary ---
Author Organization [facility] Address [address] [place] [address] Care Team Providers Care Trauma Counsellor Name Role Phone [facility]- Primary Care Provider Allergies No [...] times daily (before meals) Active nystatin (MYCOSTATIN) 670619 UNIT/GM external cream Apply topically 2 times [...] Comments Blood Pressure 113/68 12/04/2021 11:29 PM BOAT TESTER Pulse 64 12/04/2021 11:29 PM BOAT TESTER Temperature 36.9 ??C (98.4 ??F) 12/04/2021 8:29 PM CS T Respiratory Rate 18 12/04/2021 8:29 PM BOAT TESTER Oxygen Saturation 100% 12/04/2021 11:34 PM BOAT TESTER Inhaled Oxygen Concentration - - Weight 113.9 [...] this topic Medical Devices Implanted Type Area Forming Department Supervisor Device Identifier Shelf Expiration Date Model / Serial / Lot Stent Ureteral Polaris Ultra [id number] Implanted:Qty: 1 on 03/05/2021 by Lino Cheney MD at [facility] Stent Right: Ureter [employer] 12/07/2023 [id number] / / [id number] Stent Ureteral Polaris Ultra [id number] Implanted:Qty: 1 on 03/05/2021 by Lino Cheney MD at [facility] Stent Left: Ureter [employer] 12/02/2023 [id number] / / [id number] Procedures Procedure Name Priority Date/Time Associated Diagnosis Comments COMPREHENSIVE METABOLIC PANEL STAT 12/04/2021 8:36 PM BOAT TESTER from Last 3 Months or Most Recently Relevant to Health Maintenance Results * (ABNORMAL) Comprehensive metabolic panel (12/04/2021 8:36 PM BOAT TESTER) Sodium 141 133 - 144 mmol/L 12/04/2021 9:04 PM BOAT TESTER LABORATORY Potassium 4.3 3.4 - 5.3 mmol/L 12/04/2021 9:04 PM [facility] Chloride 111(H) 94 - 109 mmol/L 12/04/2021 9:04 PM [facility] Carbon Dioxide (CO2) 25 20 - 32 mmol/L 12/04/2021 9:04 PM [facility] Anion Gap 5 3 - 14 mmol/L 12/04/2021 9:04 PM [facility] Urea Nitrogen 18 7 - 30 mg/dL 12/04/2021 9:04 PM [facility] Creatinine 1.11 0.66 - 1.25 mg/dL 12/04/2021 9:04 PM [facility] Calcium 9.0 8.5 - 10.1 mg/dL 12/04/2021 9:04 PM [facility] Glucose 103(H) 70 - 99 mg/dL 12/04/2021 9:04 PM [facility] Alkaline Phosphatase 115 40 - 150 U/L 12/04/2021 9:04 PM [facility] AST 24 0 - 45 U/L 12/04/2021 9:04 PM [facility] ALT 37 0 - 70 U/L 12/04/2021 9:04 PM [facility] Protein Total 7.7 6.8 - 8.8 g/dL 12/04/2021 9:04 PM [facility] Albumin 4.0 3.4 - 5.0 g/dL 12/04/2021 9:04 PM [facility] Bilirubin Total 0.4 0.2 - 1.3 mg/dL 12/04/2021 9:04 PM [facility] GFR Estimate 81 >60 mL/min/1.7 3m2 12/04/2021 9:04 PM [facility] Comment:Effective October 102020 eGFRcr in adults is calculated using the 2020 CKD-EPI creatinine equation which includes age and gender (Arnol et al., NEJM, DOI: 10.1056/ASVKkf7816964) Blood STRUCTURE OF RIGHT UPPER LIMB / Unknown Venipuncture / Unknown 12/04/2021 8:36 PM BOAT TESTER 12/04/2021 8:44 PM [facility] Ishmael Kathleen MD LAB - BLOOD ORDERABL ES LABORATORY [facility] [address] Lab (1st floor, no room number) [place] [address], [facility] [phone] from Last 3 Months or Most Recently Relevant to Health Maintenance Care Teams Trauma Counsellor Relationship Specialty Start Date End Date [facility]- [address] [place] [address] PCP - General 02/26/21
--- OUTSIDE RECORDS SUMMARY | 2024-06-08 13:34 | XMS_ITS | Clinical Summary ---
Author Organization [facility] Address [address] [place] [address] [place] [address] Care Team Providers Care Test Engineer Nuclear Equipment Name Role Phone Phillip Sánchez Ethan DO Unavailable [phone] Allergies No known active allergies Medications [...] without long-term current use of insulin ([facility]) TEST TWICE DAILY. 60 each 5 03/28/2019 Active simvastatin 40 MG tabletIndications:Dy slipidemia Take 1 tablet (40 mg total) by mouth nightly at bedtime. 90 tablet 1 04/01/2019 Active glimepiride 2 MG tabletIndications:Di abetes ([facility]) TAKE 2 TABLETS BY MOUTH DAILY 180 tablet 5 05/11/2019 Active METFORMIN 500 MG tabletIndications:Di abetes ([facility]) TAKE 1 TABLET BY MOUTH TWICE DAILY 180 tablet 06/23/2019 Active levothyroxine 50 MCG tabletIndications:Th yroid condition TAKE 1 TABLET(50 MCG) BY MOUTH DAILY 90 tablet 1 09/19/2019 Active Active Problems Problem Noted Date Diagnosed Date Recurrent kidney stones 01/29/2019 Coronary artery disease of n ative artery of [place] heart with stable angina pectoris 11/19/2018 Essential hypertension 11/19/2018 Dyslipidemia 11/19/2018 Type 2 diabetes mellitus wit hout complication, without long-term current use of insulin ([facility]) 11/19/2018 Hypothyroidism 03/16/2015 Sleep apnea 04/19/2014 Resolved Problems Problem Noted Date Diagnosed Date Resolved Date Need for diphtheria-tetanus- pertussis (Tdap) vaccine 11/19/2018 01/23/2019 Acute MS ([facility]) 02/27/2017 0 01/23/2019 Immunizations Name Administration Dates [...] without long-term current use of insulin ([facility]) from Last 3 Months or Most Recently Relevant to Health Maintenance Results * (ABNORMAL) HEMOGLOBIN, GLYCOSYLATED (04/01/2019 11:14 AM CDT) HGB A1C 6.9(H) 4.2 - 6.3 % 04/01/2019 8:25 PM CDT [facility] ESTIMATED AVG GLUCOSE 151(H) 74 - 106 MG/DL 04/01/2019 8:25 PM CDT [facility] 04/01/2019 11:1 4 AM CDT Porfirio Zaman MD LABORATORY [facility] [address] [place] [address], [id number] * (ABNORMAL) LIPID PANEL (04/01/2019 11:14 AM CDT) CHOLESTEROL 137 MG/DL 04/01/2019 7:44 PM CDT [facility] Comment:DESIRABLE: <200 TRIGLYCERIDES 285 MG/DL 04/01/2019 7:44 PM CDT [facility] Comment:200-499 HIGH HDL 39(L) >39 MG/DL 04/01/2019 7:44 PM CDT [facility] LDL (CALCULATED) 41 MG/DL 04/01/20 19 7:44 PM CDT [facility] Comment:<100 OPTIMAL VLDL CALCULATION 57 MG/DL 04/01/20 19 7:44 PM CDT [facility] Comment:REFERENCE RANGE NOT ESTABLISHED CHOL/HDL RATIO 3.5 04/01/2019 7:44 PM CDT [facility] Comment:REFERENCE RANGE NOT ESTABLISHED LDL/HDL 1.1 04/01/2019 7:44 PM CDT [facility] Comment:REFERENCE RANGE NOT ESTABLISHED NON HDL CHOLESTEROL 98 MG/DL 04/01/2019 7:44 PM CDT [facility] Comment:REFERENCE RANGE NOT ESTABLISHED 04/01/2019 11:1 4 AM CDT Porfirio Zaman MD LABORATORY [facility] [address] [place] [address], [phone] from Last 3 Months or Most Recently Relevant to Health Maintenance Care Teams Test Engineer Nuclear Equipment Relationship Specialty Start Date End Date Phillip Sánchez DO [address] [place] [phone] PCP - HEART & VASCULAR CARE CARDIOVASCULAR DISEASE 06/07/18
--- OUTSIDE RECORDS SUMMARY | 2024-06-08 13:34 | XMS_ITS | Referral Summary ---
Author Organization [facility] Address [address] [place] [address] Care Team Providers Care Supervisor Looping Name Role Phone [facility]- Primary Care Provider Allergies No known active [...] times daily (before meals) Active nystatin (MYCOSTATIN) 778651 UNIT/GM external cream Apply topically 2 times [...] Comments Blood Pressure 113/68 12/04/2021 11:29 PM OCEANOLOGIST Pulse 64 12/04/2021 11:29 PM OCEANOLOGIST Temperature 36.9 ??C (98.4 ??F) 12/04/2021 8:29 PM CS T Respiratory Rate 18 12/04/2021 8:29 PM OCEANOLOGIST Oxygen Saturation 100% 12/04/2021 11:34 PM OCEANOLOGIST Inhaled Oxygen Concentration - - Weight 113.9 kg (251 lb) 03/05/2021 5:47 AM CDT Height 185.4 cm (6' 1) 03/05/2021 5:47 AM CDT Body Mass Index 33.12 03/05/2021 5:47 AM CDT Plan of Treatment Not on file Medical Devices Implanted Type Area Pile Trimmer Device Identifier Shelf Expiration Date Model / Serial / Lot Stent Ureteral Polaris Ultra [id number] Implanted:Qty: 1 on 03/05/2021 by Lino Cheney MD at [facility] Stent Right: Ureter [employer] 12/07/2023 [id number] Stent Ureteral Polaris Ultra [id number] Implanted:Qty: 1 on 03/05/2021 by Lino Cheney MD at [facility] Stent Left: Ureter [employer] 12/02/2023 [id number] Procedures Procedure Name Priority Date/Time Associated Diagnosis Comments COMPREHENSIVE METABOLIC PANEL STAT 12/04/2021 8:36 PM OCEANOLOGIST from Last 3 Months or Most Recently Relevant to Health Maintenance Results * (ABNORMAL) Comprehensive metabolic panel (12/04/2021 8:36 PM OCEANOLOGIST) Sodium 141 133 - 144 mmol/L 12/04/2021 9:04 PM [facility] Potassium 4.3 3.4 - 5.3 mmol/L 12/04/2021 9:04 PM [facility] Chloride 111(H) 94 - 109 mmol/L 12/04/2021 9:04 PM [facility] Carbon Dioxide (CO2) 25 20 - 32 mmol/L 12/04/2021 9:04 PM [facility] Anion Gap 5 3 - 14 mmol/L 12/04/2021 9:04 PM [facility] Urea Nitrogen 18 7 - 30 mg/dL 12/04/2021 9:04 PM [facility] Creatinine 1.11 0.66 - 1.25 mg/dL 12/04/2021 9:04 PM [facility] Calcium 9.0 8.5 - 10.1 mg/dL 12/04/2021 9:04 PM [facility] Glucose 103(H) 70 - 99 mg/dL 12/04/2021 9:04 PM [facility] Alkaline Phosphatase 115 40 - 150 U/L 12/04/2021 9:04 PM [facility] AST 24 0 - 45 U/L 12/04/2021 9:04 PM [facility] ALT 37 0 - 70 U/L 12/04/2021 9:04 PM [facility] Protein Total 7.7 6.8 - 8.8 g/dL 12/04/2021 9:04 PM [facility] Albumin 4.0 3.4 - 5.0 g/dL 12/04/2021 9:04 PM [facility] Bilirubin Total 0.4 0.2 - 1.3 mg/dL 12/04/2021 9:04 PM [facility] GFR Estimate 81 >60 mL/min/1.7 3m2 12/04/2021 9:04 PM [facility] Comment:Effective October 102020 eGFRcr in adults is calculated using the 2020 CKD-EPI creatinine equation which includes age and gender (Gantry Crane Operator et al., NEJM, DOI: 10.1056/WTREpf1465101) Blood STRUCTURE OF RIGHT UPPER LIMB / Unknown Venipuncture / Unknown 12/04/2021 8:36 PM OCEANOLOGIST 12/04/2021 8:44 PM OCEANOLOGIST Ishmael Kathleen MD LAB - BLOOD ORDERABL ES [facility] [address] [facility] ([facility] floor, no room number) [place] [address], [facility] [phone] from Last 3 Months or Most Recently Relevant to Health Maintenance Care Teams Supervisor Looping Relationship Specialty Start Date End Date [facility]- [address] [place] [address] PCP - General 02/26/21
--- OUTSIDE RECORDS SUMMARY | 2024-06-08 13:34 | XMS_ITS | Encounter Summary ---
Author Organization [facility] Address [address] [place] [address] Care Team Providers Care Miner Pick Name Role Phone [facility]- Primary Care Provider Encounter Details Date Type [...] COVID-19? No / Unsure 12/04/2021 8:25 PM LOCOMOTIVE MECHANIC APPRENTICE documented as of this encounter Plan of Treatment Not on file documented as of this encounter Visit Diagnoses Not on filedocumented in this encounter Care Teams Miner Pick Relationship Specialty Start Date End Date [facility]- [address] [place] [address] PCP - General 02/26/21 documented as of this encounter
== END 2024-06-08 13:59 | disposition home or self-care (01) ==
PROVIDERS: Emergency Provider Emergency Medicine; PCP Physician Assistant Medical
DX: S61.012A Laceration without foreign body of left thumb without damage to nail, initial encounter (principal); W26.0XXA Contact with knife, initial encounter
CPT/HCPCS: 12001; 99282; 99283

== ENCOUNTER 2024-08-22 14:42 | Outpatient (CLI) | payer BC, SELFPAY ==
--- OUTSIDE RECORDS SUMMARY | 2024-08-22 14:47 | XMS_ITS | Data Portability ---
Author Organization [facility], [facility] Address [address] [place] [address] Care Team Providers Care Electronics Detail Draftsperson Name Role Phone [facility] Primary Care Provider Assessment Encounter Date [...] bilateral ureteral calculi with associated right hydronephrosis. [facility] Not available 11/30/2023 08:58:20 Plan of Treatment Reminders Order Date Submit Date Provider Last Modified By Organization Details Last Modified Time Details Appointments ESTABLI SHED 20 2024 01:20P Derick Dorcas Melendez , PAC Not available Not available Not available Lab kidney stone, 24-hour urine panel 2020 021 [employer], [address], [place], [address], 03/21/2021 15:07:16 BMP, serum or plasma 2020 021 [facility] [address] [place], [address], 07/23/2021 09:48:09 BMP, serum or plasma 2021 022 [facility], [address] [place], [address], 07/09/2022 08:31:55 Referral None recorde d. Procedures None recorde d. Surgeries None recorde d. Imaging US, renal - Pt needs in late Dec 2021, please call patient to shannon sepulveda. 2020 021 [facility] Radiology Department, [address] [place], [address], 07/23/2021 13:36:56 US, renal - Pt needs in late Dec 2021, please call patient to shannon sepluveda. 2021 022 [facility] Radiology Department, [address] [place], [address], 07/02/2022 15:15:27 US, renal 2022 023 [facility] Radiology Department, [address] [place], [address], 10/28/2023 10:04:10 US, renal - PLEASE CALL PT TO BAUTISTAUL E 2023 024 [facility] Radiology Department, [address] [place], [address], 08/10/2024 12:09:04 Medication Orders potassi um citrate ER 10 mEq (1,080 mg) tablet, extende d release 2020 021 [facility] [address], [place], [address], 06/11/2021 14:57:31 potassi um citrate ER 10 mEq (1,080 mg) tablet, extende d release [address]/Pharmacy #024[facility], [address], [place], [address], 07/02/2022 16:41:17 potassi um citrate ER 10 mEq (1,080 mg) tablet, extende d release 2022 023 [facility]armacy #0241, [address], [place], [address], 12/10/2022 20:16:01 potassi um citrate ER 10 mEq (1,080 mg) tablet, extende d release 2023 024 [facility] [employer] [facility], [address] [place] [address], [address], 11/30/2023 16:36:07 Patient TargetsNo targets recorded. Patient InstructionsNo instructions recorded. Reason for Referral None Reported. Results Created Date Observation Date Name Description Value Unit Range Abnormal Flag Note LastModifiedBy Organization Detail LastModifiedTime 02/26/2002/22/2021 CT, abdom en + pelvi s, w/o contr ast No observ ation record ed. [facility] [address], [place], [address], 03/14/2021 11:24:01 04/02/20 21 04/01/2021 CT, abdom en + pelvi s, w/o contr ast No observ ation record ed. [email or web address] [facility] [address] [facility] [place], [address], 04/03/2021 08:17:34 09/24/20 21 09/23/2021 US, renal No observ ation record ed. [address] Radiology Department [address] [place], [address], 07/02/2022 16:41:14 12/17/19 22 12/16/2021 US, renal No observ ation record ed. [address] Radiology Department [address] [place], [address], 07/02/2022 16:41:14 12/01/19 23 12/01/2022 US, renal No observ ation record ed. [address] Radiology Department [address] [place], [address], 12/10/2022 13:16:57 11/23/19 24 11/18/2023 US, renal No observ ation record ed. [address] Radiology Department [address] [place], [address], 11/30/2023 16:34:06 Result Notes None recorded. Procedures Surgical History Date Name Laterality Status Provider Name and Address Organization Details Recorded Time 1 Cystoscopy with foreign body/stent removal completed Parvez Brunner MD [address], [place], [address], [place] [facility] 03/14/2021 11:25:44 1 Bladder Scan completed Savita Gilbert [facility] 01/23/2021 16:01:51 placement of stent in pulmonary artery completed Savita Gilbert [facility] 01/23/2021 15:29:56 Imaging Results Imaging Date Name Status [facility] by [facility] Details LastModified Time 02/22/2021 CT, abdomen + pelvis, w/o contrast completed [facility] [address], [place], [address], 03/14/2021 11:24:01 04/01/2021 CT, abdomen + pelvis, w/o contrast completed [email or web address] [facility] [address], [place], [address], 04/03/2021 08:17:34 09/23/2021 US, renal completed [address] Radiology Department [address] [place], [address], 07/02/2022 16:41:14 12/16/2021 US, renal completed [address] Radiology Department [address] [place], [address], 07/02/2022 16:41:14 12/01/2022 US, renal completed [address] Radiology Department [address] [place], [address], 12/10/2022 13:16:57 11/18/2023 US, renal completed [address] Radiology Department [address] [place], [address], 11/30/2023 16:34:06 Procedure Notes None recorded. Medical [...] Updated DateTime 07/02/2022 187.96 cm 30.8 kg/m2 501484.17 g Mack Schultz [facility] [place] 07/02/2022 14:42:19 Date Recorded Body height Body mass index (BMI) Body weight Provider Name and Address Organization Details Last Updated DateTime 12/10/2022 187.96 cm 30.8 kg/m2 389676.17 g Karina Pandey [facility] [place] 12/10/2022 12:18:12 Date Recorded Body height Body mass index (BMI) Body weight Provider Name and Address Organization Details Last Updated DateTime 11/30/2023 187.96 cm 29.5 kg/m2 370483.25 g Karina Pandey [facility] 11/30/2023 15:43:35 Date Recorded Body height Body mass index (BMI) Body weight Provider Name and Address Organization Details Last Updated DateTime 03/14/2021 187.96 cm 32.1 kg/m2 067377.09 g Freddie Lyon [facility] 03/14/2021 10:25:32 Date Recorded Body height Body mass index (BMI) Body weight Provider Name and Address Organization Details Last Updated DateTime 06/11/2021 187.96 cm 32.1 kg/m2 885156.09 g Alem Suarez [facility] 06/11/2021 14:10:20 Social History Question Answer Notes LastModified by Organizat ion Details LastModified Time Tobacco Smoking Status Former Smoker Savita chin [facility] 01/23/2021 15:29:20 What Is Your Level Of [...] Age of this Age Resolved Age Notes LastModified by Organization Details LastModified Time Mother Family history of breast cancer destiny Not available 2020 15:29:13 Medical History Condition Response Other High Blood Pressure Y Kidney Stones Y Diabetes Y High Cholesterol Y Heart Disease Y Immunizations Vaccine Type Date Status Provider Name and Address Organization Details Recorded Time COVID-19, mRNA, LNP-S, PF, 30 mcg/0.3 mL dose 03/01/2021 completed Karina Pandey null, [facility] 12/10/2022 12:18:25 COVID-19, mRNA, LNP-S, PF, 30 mcg/0.3 mL dose 03/22/2021 completed Karina Pandey null, [facility] [place] 12/10/2022 12:18:25 pneumococcal polysaccharide PPV23 03/19/2022 completed Karina Pandey null, [facility] 12/10/2022 12:18:25 Tdap 11/09/2016 completed Kristin Hilario null, [facility] [place] 09/10/2023 15:47:52 Past Encounters Encounter ID Performer Location Encounter Start Date Encounter Closed Date Diagnosis/Indication Diagnosis SNOMED-CT Code Diagnosis ICD10 Code [id number] RODOLFO Blanca [facility] [address] [place] [address] 01/23/2021 15:22:01 01/25/2021 11:59:59 Kidney stone 96667679 N20.0 [id number] Parvez Brunner MD [facility] [address] [place] [address] 02/22/2021 11:05:52 02/25/2021 12:15:52 Kidney stone 89415171 N20.0 Hydronephrosis 84980061 N13.30 [id number] MD ISABELA [facility] [address] [place] [address] 03/14/2021 10:18:02 03/15/2021 12:19:35 Kidney stone 94570134 N20.0 Hydronephrosis 78024100 N13.30 [id number] Parvez Brunner MD [facility] [address] [place] [address] 06/11/2021 14:09:34 06/12/2021 16:13:16 Kidney stone 79478374 N20.0 [id number] Parvez Brunner MD [facility] [address] [place] [address] 07/02/2022 14:37:32 07/04/2022 11:21:54 Kidney stone 89084870 N20.0 [id number] Parvez Brunner MD [facility] [address] [place] [address] 12/10/2022 12:01:08 12/15/2022 11:46:51 Kidney stone 23857257 N20.0 [id number] Parvez Brunner MD [facility] [address] [place] [address] 11/30/2023 15:15:43 12/02/2023 15:39:46 Kidney stone 12263851 N20.0 Health Concerns Section Related Observation LastModified by Organization Detai ls LastModified Time None Recorded Concern Status LastModified by Organization Details LastModified Time None Recorded Advance Directives Directive None Recorded Payers Encounter Date Sequence Insurance Name Policy Number Policy Painting Covered Member ID Painting Member ID Guarantor Name 03/14/2021 1 [place] [id number] Lino Orozco [id number] Lino Orozco 06/11/2021 1 [place] [id number] Lino Orozco [id number] Lino Orozco 07/02/2022 1 [place] [id number] Lino Orozco [id number] Lino Orozco 12/10/2022 1 [place] L[place] Orozco [id number] Lino Orozco 11/30/2023 1 [place]roz[place] [id number] Lino Orozco Notes Date Note Type [...] kidney stones.He recently moved from out of [facility]. He has been seen by urologist in [place]. PVR 27 mL UA >1000 glucose (pt [...] to be removed. Parvez Brunner MD [address], [place], [address], [facility] 03/14/2021 11:27:57 06/11/2021 text/html HPI Notes: [...] kidney stones.He recently moved from out of [facility]. He has been seen by urologist in [place]. PVR 27 mL UA >1000 glucose (pt [...] and coordinate their care. Parvez Brunner MD [address], [place], [address], [facility] 06/11/2021 14:58:09 07/02/2022 text/html HPI Notes: [...] kidney stones.He recently moved from out of [facility]. He has been seen by urologist in [place]. PVR 27 mL UA >1000 glucose (pt [...] recent stone episodes. Parvez Brunner MD [address], [place], [address], [facility] 07/02/2022 16:43:00 12/10/2022 text/html HPI Notes: [...] kidney stones.He recently moved from out of [facility]. He has been seen by urologist in [place]. PVR 27 mL UA >1000 glucose (pt [...] Bilateral simple renal cysts. Parvez Brunner MD [address], [place], [address], [facility] 12/10/2022 13:19:09 11/30/2023 text/html HPI Notes: [...] kidney stones.He recently moved from out of [facility]. He has been seen by urologist in [place]. PVR 27 mL UA >1000 glucose (pt [...] other pathology visualized. Parvez Brunner MD [address], [place], [address], [facility] 11/30/2023 16:36:37
--- OUTSIDE RECORDS SUMMARY | 2024-08-22 14:47 | XMS_ITS | Clinical Summary ---
Author Organization [facility] Address [address] [place] [address]. [place] [address] [place] [address] Care Team Providers Care Jewelry Manager Name Role Phone SánchezMerrittPhillip Y DO Unavailable [phone] Allergies No known active allergies Medications metoprolol succinate 50 MG 24 hr tablet [...] 2 (two) times daily with meals. Active amoxicillin-cla vulanate 875-125 MG tabletIndicatio ns:Acute maxillary sinusitis, recurrence not specified Take 1 tablet (875 mg total) by mouth 2 (two) times daily. 20 tablet 02/02/2019 Active CPAP SUPPLIESIndicat ions:Sleep apnea Please give patient one set of supplies for cpap 1 Device 02/17/2019 Active FREESTYLE LITE test stripIndication s:Type 2 diabetes mellitus without complication, without long-term current use of insulin ([facility]) TEST TWICE DAILY. 60 each 5 03/28/2019 Active simvastatin 40 MG tabletIndicatio ns:Dyslipidemia Take 1 tablet (40 mg total) by mouth nightly at bedtime. 90 tablet 1 04/01/2019 Active glimepiride 2 MG tabletIndicatio ns:Diabetes ([facility]) TAKE 2 TABLETS BY MOUTH DAILY 180 tablet 5 05/11/2019 Active METFORMIN 500 MG tabletIndicatio ns:Diabetes ([facility]) TAKE 1 TABLET BY MOUTH TWICE DAILY 180 tablet 06/23/2019 Active levothyroxine 50 MCG tabletIndicatio ns:Thyroid condition TAKE 1 TABLET(50 MCG) BY MOUTH DAILY 90 tablet 1 09/19/2019 Active Active Problems Problem Noted Date Diagnosed Date Recurrent kidney stones 01/29/2019 Coronary artery disease of n ative artery of [place] heart with stable angina pectoris 11/19/2018 Essential hypertension 11/19/2018 Dyslipidemia 11/19/2018 Type 2 diabetes mellitus wit hout complication, without long-term current use of insulin ([facility]) 11/19/2018 Hypothyroidism 03/16/2015 Sleep apnea 04/19/2014 Resolved Problems Problem Noted Date Diagnosed Date Resolved Date Need for diphtheria-tetanus- pertussis (Tdap) vaccine 11/19/2018 01/23/2019 Acute MD ([facility]) 02/27/2017 0 01/23/2019 Immunizations Name Administration [...] Recorded Sex Assigned at Not on file Legal Sex Male 9:03 AM CDT Gender Identity Not on file Sexual Orientation [...] Retinopathy Eye Exam 1989 Hepatitis C 1989 Hepatitis B Vaccines (1 of 3 - 19+ 3-dose series) 1990 Hemoglobin A1C 10/02/2019 04/01/2019, 01/07, 11/19/2018, Additional history exists ASCVD LDL 04/01/2020 04/01/2019, 11/09, 03/12/2018, Additional history exists Lipid Panel 04/01/2020 04/01/2019, 11/09, 03/12/2018, Additional history exists Zoster Vaccines (1 of 2) 2021 COVID-19 Vaccine ( - season) 2024 Influenza Adult (#1) 2024 DTaP, Tdap and Td Vaccines (2 - [...] complication, without long-term current use of insulin ([facility]) from Last 3 Months or Most Recently Relevant to Health Maintenance Results * (ABNORMAL) HEMOGLOBIN, GLYCOSYLATED (04/01/2019 11:14 AM CDT) HGB A1C 6.9(H) 4.2 - 6.3 % 04/01/2019 8:25 PM CDT [facility] ESTIMATED AVG GLUCOSE 151(H) 74 - 106 MG/DL 04/01/2019 8:25 PM CDT [facility] 04/01/2019 11:1 4 AM CDT us Porfirio Zaman MD LABORATORY Final Resul t [facility] [address] [place] [address], [id number] * (ABNORMAL) LIPID PANEL (04/01/2019 11:14 AM CDT) CHOLESTEROL 137 MG/DL 04/01/2019 7:44 PM CDT [facility] Comment:DESIRABLE: <200 TRIGLYCERIDES 285 MG/DL 04/01/2019 7:44 PM CDT [facility] Comment:200-499 HIGH HDL 39(L) >39 MG/DL 04/01/2019 7:44 PM CDT [facility] LDL (CALCULATED) 41 MG/DL 04/01/20 19 7:44 PM CDT [facility] Comment:<100 OPTIMAL VLDL CALCULATION 57 MG/DL 04/01/20 19 7:44 PM CDT [facility] Comment:REFERENCE RANGE NOT ESTABLISHED CHOL/HDL RATIO 3.5 04/01/2019 7:44 PM CDT [facility] Comment:REFERENCE RANGE NOT ESTABLISHED LDL/HDL 1.1 04/01/2019 7:44 PM CDT [facility] Comment:REFERENCE RANGE NOT ESTABLISHED NON HDL CHOLESTEROL 98 MG/DL 04/01/2019 7:44 PM CDT [facility] Comment:REFERENCE RANGE NOT ESTABLISHED 04/01/2019 11:1 4 AM CDT us Porfirio Zaman MD LABORATORY Final Resul t [facility] [address] [place] [address], [id number] from Last 3 Months or Most Recently Relevant to Health Maintenance Insurance [facility] Care Teams Jewelry Manager Relationship Specialty Start Date End Date Phillip Sánchez DO [address] [place] [phone] PCP - HEART & VASCULAR CARE CARDIOVASCULAR DISEASE 06/07/18
--- OUTSIDE RECORDS SUMMARY | 2024-08-22 14:47 | XMS_ITS | Clinical Summary ---
Author Organization [facility] Address [address] [place] [address] Care Team Providers Care Falsework Builder Name Role Phone [facility]- Primary Care Provider Allergies No known [...] times daily (before meals) Active nystatin (MYCOSTATIN) 203913 UNIT/GM external cream Apply topically 2 times [...] Comments Blood Pressure 113/68 12/04/2021 11:29 PM WATER TEAM LEADER Pulse 64 12/04/2021 11:29 PM WATER TEAM LEADER Temperature 36.9 ??C (98.4 ??F) 12/04/2021 8:29 PM CS T Respiratory Rate 18 12/04/2021 8:29 PM WATER TEAM LEADER Oxygen Saturation 100% 12/04/2021 11:34 PM WATER TEAM LEADER Inhaled Oxygen Concentration - - Weight 113.9 [...] 2021 ZOSTER IMMUNIZATION (1 of 2) 2021 PHQ-2 (once per calendar year) 2023 COVID-19 Vaccine (3 - 2023-2 5 season) 2024 03/22/2021, 03/01/2021 INFLUENZA VACCINE (#1) 2024 GLUCOSE 12/04/2024 12/04/2021, 03/05/2021 DTAP/TDAP/TD IMMUNIZATION (3 - Td or Tdap) 11/19/2028 11/19/2018, 11/09/2016 RSV VACCINE (1 - 1-dose 75+ series) 2046 HPV IMMUNIZATION Aged Out No longer e [...] this topic Medical Devices Implanted Type Area Inventory Management Specialist Device Identifier Shelf Expiration Date Model / Serial / Lot Stent Ureteral Polaris Ultra [id number] Implanted:Qty: 1 on 03/05/2021 by Lino Cheney MD at [facility] Stent Right: Ureter [employer] 12/07/2023 [id number] / / [id number] Stent Ureteral Polaris Ultra [id number] Implanted:Qty: 1 on 03/05/2021 by Lino Cheney MD at [facility] Stent Left: Ureter [employer] 12/02/2023 [id number] / / [id number] Procedures Procedure Name Priority Date/Time Associated Diagnosis Comments COMPREHENSIVE METABOLIC PANEL STAT 12/04/2021 8:36 PM WATER TEAM LEADER from Last 3 Months or Most Recently Relevant to Health Maintenance Results * (ABNORMAL) Comprehensive metabolic panel (12/04/2021 8:36 PM WATER TEAM LEADER) Sodium 141 133 - 144 mmol/L 12/04/2021 9:04 PM WATER TEAM LEADER LABORATORY Potassium 4.3 3.4 - 5.3 mmol/L 12/04/2021 9:04 PM [facility] Chloride 111(H) 94 - 109 mmol/L 12/04/2021 9:04 PM [facility] Carbon Dioxide (CO2) 25 20 - 32 mmol/L 12/04/2021 9:04 PM [facility] Anion Gap 5 3 - 14 mmol/L 12/04/2021 9:04 PM [facility] Urea Nitrogen 18 7 - 30 mg/dL 12/04/2021 9:04 PM [facility] Creatinine 1.11 0.66 - 1.25 mg/dL 12/04/2021 9:04 PM [facility] Calcium 9.0 8.5 - 10.1 mg/dL 12/04/2021 9:04 PM [facility] Glucose 103(H) 70 - 99 mg/dL 12/04/2021 9:04 PM [facility] Alkaline Phosphatase 115 40 - 150 U/L 12/04/2021 9:04 PM [facility] AST 24 0 - 45 U/L 12/04/2021 9:04 PM [facility] ALT 37 0 - 70 U/L 12/04/2021 9:04 PM [facility] Protein Total 7.7 6.8 - 8.8 g/dL 12/04/2021 9:04 PM [facility] Albumin 4.0 3.4 - 5.0 g/dL 12/04/2021 9:04 PM [facility] Bilirubin Total 0.4 0.2 - 1.3 mg/dL 12/04/2021 9:04 PM [facility] GFR Estimate 81 >60 mL/min/1.7 3m2 12/04/2021 9:04 PM [facility] Comment:Effective October 102020 eGFRcr in adults is calculated using the 2020 CKD-EPI creatinine equation which includes age and gender (Arnol et al., NEJM, DOI: 10.1056/YPPTue5249572) Blood STRUCTURE OF RIGHT UPPER LIMB / Unknown Venipuncture / Unknown 12/04/2021 8:36 PM WATER TEAM LEADER 12/04/2021 8:44 PM [facility] Ishmael Kathleen MD LAB - BLOOD ORDERABL ES LABORATORY [facility] [address] Lab (1st floor, no room number) [place] [address], [facility] [phone] from Last 3 Months or Most Recently Relevant to Health Maintenance Care Teams Falsework Builder Relationship Specialty Start Date End Date [facility]- [address] [place] [address] PCP - General 02/26/21
--- OUTSIDE RECORDS SUMMARY | 2024-08-22 14:47 | XMS_ITS | Encounter Summary ---
Author Organization [facility] Address [address] [place] [address] Care Team Providers Care Credit Processor Name Role Phone [facility]- Primary Care Provider Encounter Details Date [...] COVID-19? No / Unsure 12/04/2021 8:25 PM OB GYN documented as of this encounter Plan of Treatment Not on file documented as of this encounter Visit Diagnoses Not on filedocumented in this encounter Care Teams Credit Processor Relationship Specialty Start Date End Date [facility]- [address] [place] [address] PCP - General 02/26/21 documented as of this encounter
--- OUTSIDE RECORDS SUMMARY | 2024-08-22 14:47 | XMS_ITS | Encounter Summary ---
Author Organization [facility] Address [facility] [facility] [place] [address] [place] [address] Care Team Providers Care Backfiller Name Role Phone Phillip Sánchez DO Unavailable [phone] Porfirio Zaman MD Primary Care Provider Encounter Details Date Type Department Care Team (Late st Contact Info) Description 01/23/2018 Abstract [facility] CONVERSION [address] [place] [address] , Generic MD Abel Social [...] on filedocumented in this encounter Care Teams Backfiller Relationship Specialty Start Date End Date Phillip Sánchez DO [address] [place] [address] PCP - HEART & VASCULAR CARE CARDIOVASCULAR DISEASE 06/07/18 Porfirio Zaman MD [address] [place] [address] PCP - General FAMILY PRACTICE 06/07/18 12/23/23 documented as of this encounter
--- OUTSIDE RECORDS SUMMARY | 2024-08-22 14:47 | XMS_ITS | Clinical Summary ---
Author Organization [facility] Address [place], [place] [address] Care Team Providers Care Saas Architect Name Role Phone Estephania Vela Primary Care [...] Influenza for age 50-64 07/10/2024 Care Teams Saas Architect Relationship Specialty Start Date End Date Estephania Vela PCP - General 08/23/19
--- OUTSIDE RECORDS SUMMARY | 2024-08-22 14:47 | XMS_ITS | Referral Summary ---
Author Organization [facility] Address [address] [place] [id number] Care Team Providers Care Analytical Laboratory Technician Name Role Phone [facility]- Primary Care Provider Allergies No known active [...] times daily (before meals) Active nystatin (MYCOSTATIN) 595387 UNIT/GM external cream Apply topically 2 times [...] Comments Blood Pressure 113/68 12/04/2021 11:29 PM [employer] Pulse 64 12/04/2021 11:29 PM [employer] Temperature 36.9 ??C (98.4 ??F) 12/04/2021 8:29 PM CS T Respiratory Rate 18 12/04/2021 8:29 PM [employer] Oxygen Saturation 100% 12/04/2021 11:34 PM [employer] Inhaled Oxygen Concentration - - Weight 113.9 kg (251 lb) 03/05/2021 5:47 AM CDT Height 185.4 cm (6' 1) 03/05/2021 5:47 AM CDT Body Mass Index 33.12 03/05/2021 5:47 AM CDT Plan of Treatment Not on file Medical Devices Implanted Type Area Tapping Machine Operator Device Identifier Shelf Expiration Date Model / Serial / Lot Stent Ureteral Polaris Ultra [id number] Implanted:Qty: 1 on 03/05/2021 by Lino Cheney MD at [facility] Stent Right: Ureter [employer] 12/07/2023 [id number] Stent Ureteral Polaris Ultra [id number] Implanted:Qty: 1 on 03/05/2021 by Lino Cheney MD at [facility] Stent Left: Ureter [employer] 12/02/2023 [id number] Procedures Procedure Name Priority Date/Time Associated Diagnosis Comments COMPREHENSIVE METABOLIC PANEL STAT 12/04/2021 8:36 PM [employer] from Last 3 Months or Most Recently Relevant to Health Maintenance Results * (ABNORMAL) Comprehensive metabolic panel (12/04/2021 8:36 PM [employer]) Sodium 141 133 - 144 mmol/L 12/04/2021 9:04 PM [facility] Potassium 4.3 3.4 - 5.3 mmol/L 12/04/2021 9:04 PM [facility] Chloride 111(H) 94 - 109 mmol/L 12/04/2021 9:04 PM [facility] Carbon Dioxide (CO2) 25 20 - 32 mmol/L 12/04/2021 9:04 PM [facility] Anion Gap 5 3 - 14 mmol/L 12/04/2021 9:04 PM [facility] Urea Nitrogen 18 7 - 30 mg/dL 12/04/2021 9:04 PM [facility] Creatinine 1.11 0.66 - 1.25 mg/dL 12/04/2021 9:04 PM [facility] Calcium 9.0 8.5 - 10.1 mg/dL 12/04/2021 9:04 PM [facility] Glucose 103(H) 70 - 99 mg/dL 12/04/2021 9:04 PM [facility] Alkaline Phosphatase 115 40 - 150 U/L 12/04/2021 9:04 PM [facility] AST 24 0 - 45 U/L 12/04/2021 9:04 PM [facility] ALT 37 0 - 70 U/L 12/04/2021 9:04 PM [facility] Protein Total 7.7 6.8 - 8.8 g/dL 12/04/2021 9:04 PM [facility] Albumin 4.0 3.4 - 5.0 g/dL 12/04/2021 9:04 PM [facility] Bilirubin Total 0.4 0.2 - 1.3 mg/dL 12/04/2021 9:04 PM [facility] GFR Estimate 81 >60 mL/min/1.7 3m2 12/04/2021 9:04 PM [facility] Comment:Effective October 102020 eGFRcr in adults is calculated using the 2020 CKD-EPI creatinine equation which includes age and gender ([employer] et al., NEJM, DOI: 10.1056/GEXKic5409761) Blood STRUCTURE OF RIGHT UPPER LIMB / Unknown Venipuncture / Unknown 12/04/2021 8:36 PM [employer] 12/04/2021 8:44 PM [employer] Ishmael Kathleen MD LAB - BLOOD ORDERABL ES [facility] [address] [facility] (1st floor, no room number) [place] [address], [facility] [phone] from Last 3 Months or Most Recently Relevant to Health Maintenance Care Teams Analytical Laboratory Technician Relationship Specialty Start Date End Date [facility]- [address] [place] [address] PCP - General 02/26/21
== END 2024-08-22 14:43 | disposition home or self-care (01) ==
PROVIDERS: PCP Physician Assistant Medical; Visit Provider Physician Assistant Medical
DX: R79.89 Other specified abnormal findings of blood chemistry (principal); R53.83 Other fatigue; E03.9 Hypothyroidism, unspecified; E11.9 Type 2 diabetes mellitus without complications; I10 Essential (primary) hypertension; E78.5 Hyperlipidemia, unspecified
CPT/HCPCS: 82043; 82306; 82550; 82570; 82607; 84443; 86140

== ENCOUNTER 2024-10-26 21:36 | Outpatient (REF) | payer BC, SELFPAY ==
[2024-10-26 22:32] LABS: Chloride* 104 mmol/L (96-114)
[2024-10-26 22:33] LABS: Potassium* 4.6 mmol/L (3.6-5.1); Sodium* 138 mmol/L (135-149)
[2024-10-26 22:35] LABS: Blood Urea Nitrogen* 13 mg/dL (7-30); Creatinine* 1.2 mg/dL (0.5-1.5); Estimated Glomerular Filt Rate 72 ml/min
[2024-10-26 22:36] LABS: Anion Gap 8 mEq/L (7-15); Calcium* 9.4 mg/dL (8.4-10.6); Carbon Dioxide* 26 mmol/L (20-32); Glucose* 104 mg/dL (60-115)
[2024-10-26 22:37] LABS: Basophils Absolute Auto 0.04 K/uL (0.00-0.30); Basophils Percent Auto 0.5 % (0.0-3.0); Eosinophils Absolute Auto 0.07 K/uL (0.00-0.50); Hematocrit 51.1 % (37.0-53.0); Hemoglobin* 16.1 gm/dL (13.5-17.5); Immature Granulocytes Abs Auto 0.05 K/uL (0.00-0.30); Immature Granulocytes Pct Auto 0.7 %; Lymphocytes Absolute Auto 2.05 K/uL (0.90-2.90); Lymphocytes Percent Auto 28.1 % (20-44); Mean Corpuscular HGB Conc 32 gm/dL (32-36); Mean Corpuscular Hemoglobin 30 pg (26-34); Mean Corpuscular Volume 95 fL (80-100); Monocytes Percent Auto 7.5 % (0.0-11.0); Neutrophils Absolute Auto 4.54 K/uL (1.7-7.0); Neutrophils Percent Auto 62.2 % (42.0-72.0); Platelet Count* 265 K/uL (140-440); RDW Coefficient of Variation % 13.6 % (11.5-15.5)
[2024-10-26 22:54] LABS: Slide Review Reflex No
== END 2024-10-26 21:37 | disposition home or self-care (01) ==
LOC: LAB 21:36
PROVIDERS: PCP Physician Assistant Medical; Visit Provider Dermatology
DX: L40.0 Psoriasis vulgaris (principal); Z79.899 Other long term (current) drug therapy
CPT/HCPCS: 36415; 80048; 85025

== ENCOUNTER 2024-11-14 14:29 | Outpatient (CLI) | payer BC, SELFPAY ==
--- NOTE | 2024-11-14 14:45 | CRLHL7_ITS ---
For Patients: As a result of the Century Cures Act, medical imaging exams and procedure reports are released immediately into your electronic medical record. You may view this report before your referring provider. If you have questions, please contact your health care provider. CLINICAL HISTORY: Kidney stone COMPARISON: Ultrasound 11/18/2023, CT 07/23/2023 TECHNIQUE: Ibrahim scale and color Doppler images were acquired of the kidneys and urinary bladder. FINDINGS: Simple cyst right kidney measures 1.2 x 1.0 x 1.1 cm. Nonobstructing stone right kidney measures 6 x 4 x 5 millimeters. The right kidney measures 11.2cm in length and the left kidney measures 11.2cm in length. The renal cortex appears of normal thickness. Bladder is incompletely distended with a volume of 30 cc. Bladder wall measures 6 millimeters, likely due to incomplete distention. Color Doppler images reveal a normal appearance of the right ureteral jet. There is no evidence of bladder calculi or diverticula. IMPRESSION: Nonobstructing 6 millimeter right renal stone. Dictated by Pancho Ngo MD @ 11/15/2024 1:17:51 PM (Electronically Signed)
== END 2024-11-14 14:30 | disposition home or self-care (01) ==
LOC: US 14:30
PROVIDERS: PCP Physician Assistant Medical; Visit Provider Urology
DX: N20.0 Calculus of kidney (principal)
CPT/HCPCS: 76770

== ENCOUNTER 2024-11-21 10:05 | Outpatient (CLI) | payer BC, SELFPAY | END 2024-11-21 10:06 | disposition home or self-care (01) | LOC: NFLDREF 11-28 23:41 | PROVIDERS: PCP Physician Assistant Medical; Referring Provider Physician Assistant Medical; Visit Provider Physician Assistant Medical | DX: E78.5 Hyperlipidemia, unspecified (principal) | CPT/HCPCS: 80061 ==

== ENCOUNTER 2024-12-06 10:45 | Outpatient (CLI) | payer BC, SELFPAY | END 2024-12-06 10:46 | disposition home or self-care (01) | LOC: CT 10:46 | PROVIDERS: PCP Physician Assistant Medical; Visit Provider Physician Assistant Medical | DX: Z12.2 Encounter for screening for malignant neoplasm of respiratory organs (principal); R91.8 Other nonspecific abnormal finding of lung field; Z87.891 Personal history of nicotine dependence | CPT/HCPCS: 71271 ==

== ENCOUNTER 2024-12-07 16:25 | Outpatient (CLI) | payer BC, SELFPAY | END 2024-12-07 16:26 | disposition home or self-care (01) | PROVIDERS: PCP Physician Assistant Medical; Visit Provider Physician Assistant Medical | DX: K76.0 Fatty (change of) liver, not elsewhere classified (principal); Z12.5 Encounter for screening for malignant neoplasm of prostate | CPT/HCPCS: 80076; G0103 ==

== ENCOUNTER 2025-01-31 11:47 | Outpatient (CLI) | payer BC, SELFPAY ==
[2025-01-31 21:49] LABS: Basophils Absolute Auto 0.03 K/uL (0.00-0.30); Basophils Percent Auto 0.4 % (0.0-3.0); Eosinophils Absolute Auto 0.06 K/uL (0.00-0.50); Eosinophils Percent Auto 0.9 % (0.0-7.0); Hematocrit 52.8 % (37.0-53.0); Hemoglobin* 16.9 gm/dL (13.5-17.5); Immature Granulocytes Abs Auto 0.02 K/uL (0.00-0.30); Immature Granulocytes Pct Auto 0.3 %; Lymphocytes Absolute Auto 1.89 K/uL (0.90-2.90); Lymphocytes Percent Auto 27.8 % (20-44); Mean Corpuscular HGB Conc 32 gm/dL (32-36); Mean Corpuscular Hemoglobin 31 pg (26-34); Mean Corpuscular Volume 96 fL (80-100); Monocytes Percent Auto 11.2 % (0.0-11.0); Neutrophils Absolute Auto 4.04 K/uL (1.7-7.0); Neutrophils Percent Auto 59.4 % (42.0-72.0); Platelet Count* 269 K/uL (140-440); RDW Coefficient of Variation % 14.3 % (11.5-15.5); Red Blood Count 5.52 m/uL (4.30-5.90)
[2025-01-31 21:50] LABS: Chloride* 104 mmol/L (96-114); Potassium* 4.6 mmol/L (3.6-5.1); Sodium* 139 mmol/L (135-149)
[2025-01-31 21:53] LABS: Anion Gap 10 mEq/L (7-15); Blood Urea Nitrogen* 16 mg/dL (7-30); Carbon Dioxide* 25 mmol/L (20-32); Creatinine* 1.1 mg/dL (0.5-1.5); Estimated Glomerular Filt Rate 80 ml/min
[2025-01-31 21:54] LABS: Glucose* 108 mg/dL (60-115)
[2025-01-31 21:55] LABS: Slide Review Reflex No
== END 2025-01-31 11:48 | disposition home or self-care (01) ==
LOC: NPINS 11:48
PROVIDERS: PCP Physician Assistant Medical; Visit Provider Dermatology
DX: L40.0 Psoriasis vulgaris (principal)
CPT/HCPCS: 80048; 85025

== ENCOUNTER 2025-03-30 11:45 | Outpatient (CLI) | payer BC, SELFPAY ==
[2025-03-30 21:22] LABS: Basophils Absolute Auto 0.04 K/uL (0.00-0.30); Basophils Percent Auto 0.6 % (0.0-3.0); Eosinophils Absolute Auto 0.07 K/uL (0.00-0.50); Hematocrit 53.5 % (37.0-53.0); Hemoglobin* 17.1 gm/dL (13.5-17.5); Immature Granulocytes Abs Auto 0.02 K/uL (0.00-0.30); Immature Granulocytes Pct Auto 0.3 %; Lymphocytes Absolute Auto 1.72 K/uL (0.90-2.90); Mean Corpuscular HGB Conc 32 gm/dL (32-36); Mean Corpuscular Hemoglobin 31 pg (26-34); Mean Corpuscular Volume 96 fL (80-100); Monocytes Percent Auto 8.8 % (0.0-11.0); Neutrophils Absolute Auto 4.68 K/uL (1.7-7.0); Neutrophils Percent Auto 65.3 % (42.0-72.0); Platelet Count* 246 K/uL (140-440); RDW Coefficient of Variation % 13.9 % (11.5-15.5); Red Blood Count 5.57 m/uL (4.30-5.90); White Blood Count* 7.16 K/uL (4.50-11.00)
[2025-03-30 21:34] LABS: Chloride* 105 mmol/L (96-114); Potassium* 4.8 mmol/L (3.6-5.1); Sodium* 137 mmol/L (135-149)
[2025-03-30 21:37] LABS: Anion Gap 6 mEq/L (7-15); Blood Urea Nitrogen* 15 mg/dL (7-30); Carbon Dioxide* 26 mmol/L (20-32); Creatinine* 1.2 mg/dL (0.5-1.5); Estimated Glomerular Filt Rate 72 ml/min
[2025-03-30 21:38] LABS: Calcium* 9.2 mg/dL (8.4-10.6); Glucose* 182 mg/dL (60-115)
[2025-03-30 21:42] LABS: Slide Review Reflex No
== END 2025-03-30 11:46 | disposition home or self-care (01) ==
LOC: NPINS 11:47
PROVIDERS: PCP Physician Assistant Medical; Visit Provider Dermatology
DX: L40.0 Psoriasis vulgaris (principal); Z79.899 Other long term (current) drug therapy
CPT/HCPCS: 80048; 85025

== ENCOUNTER 2025-06-07 13:59 | Outpatient (CLI) | payer BC, SELFPAY ==
[2025-06-07 21:44] LABS: Hematocrit 52.7 % (37.0-53.0); Hemoglobin* 16.8 gm/dL (13.5-17.5); Immature Granulocytes Abs Auto 0.02 K/uL (0.00-0.30); Immature Granulocytes Pct Auto 0.3 %; Lymphocytes Absolute Auto 2.07 K/uL (0.90-2.90); Mean Corpuscular HGB Conc 32 gm/dL (32-36); Mean Corpuscular Hemoglobin 31 pg (26-34); Mean Corpuscular Volume 96 fL (80-100); RDW Coefficient of Variation % 14.5 % (11.5-15.5); Red Blood Count 5.47 m/uL (4.30-5.90); White Blood Count* 7.91 K/uL (4.50-11.00)
[2025-06-07 21:48] LABS: Slide Review Reflex No
[2025-06-07 22:00] LABS: Chloride* 106 mmol/L (96-114); Potassium* 4.9 mmol/L (3.6-5.1); Sodium* 139 mmol/L (135-149)
[2025-06-07 22:03] LABS: Anion Gap 7 mEq/L (7-15); Blood Urea Nitrogen* 14 mg/dL (7-30); Carbon Dioxide* 26 mmol/L (20-32); Creatinine* 1.3 mg/dL (0.5-1.5); Estimated Glomerular Filt Rate 66 ml/min
[2025-06-07 22:04] LABS: Calcium* 9.4 mg/dL (8.4-10.6); Glucose* 195 mg/dL (60-115)
== END 2025-06-07 14:00 | disposition home or self-care (01) ==
LOC: NPINS 14:01
PROVIDERS: PCP Physician Assistant Medical; Visit Provider Dermatology
DX: L40.0 Psoriasis vulgaris (principal)
CPT/HCPCS: 80048; 85025

== ENCOUNTER 2025-09-06 11:21 | Outpatient (CLI) | payer BC, SELFPAY | END 2025-09-06 11:22 | disposition home or self-care (01) | PROVIDERS: PCP Physician Assistant Medical; Visit Provider Family Medicine | DX: E03.9 Hypothyroidism, unspecified (principal); E11.9 Type 2 diabetes mellitus without complications; E78.5 Hyperlipidemia, unspecified; I10 Essential (primary) hypertension; R53.83 Other fatigue | CPT/HCPCS: 80053; 82306; 82550; 82746; 84443; 86038; 86140; 86235 ==

== ENCOUNTER 2025-09-08 10:07 | Outpatient (CLI) | payer BC, SELFPAY | END 2025-09-08 10:08 | disposition home or self-care (01) | LOC: NFLDREF 09-11 18:32 | PROVIDERS: PCP Physician Assistant Medical; Referring Provider Physician Assistant Medical; Visit Provider Family Medicine | DX: D58.2 Other hemoglobinopathies (principal) | CPT/HCPCS: 81256; 82728; 83540; 83550; 85610; 85730 ==